=== PATIENT | male | born 1940 | race Caucasian/White ===

== ENCOUNTER 2017-12-29 11:26 | Outpatient (REF) | payer MEDICARE, BC, SELFPAY ==
[2017-12-29 21:24] LABS: Anion Gap 9.5 mmol/L (3-11); BUN 35 mg/dL (7-18); CO2 28.5 mmol/L (21.0-32.0); CREATININE 1.91 mg/dL (0.70-1.30); Calcium 8.9 mg/dL (8.5-10.1); Chloride 102 mmol/L (98-107); Estimated GFR 34.25 (mL/min/1.73m2); Glucose 204 mg/dL (70-100); Sodium 140 mmol/L (136-145)
[2017-12-29 22:02] LABS: COMMENT (LAB VIEW ONLY) 69.29 mg/dL
== END 2017-12-29 11:46 ==
LOC: NCHCN 11:26
PROVIDERS: PCP Internal Medicine; Visit Provider Internal Medicine
DX: I48.0 Paroxysmal atrial fibrillation (principal); E11.9 Type 2 diabetes mellitus without complications; I10 Essential (primary) hypertension
CPT/HCPCS: 80048; 82043; 82570

== ENCOUNTER 2018-10-02 11:30 | Outpatient (REF) | payer MEDICARE, BC, SELFPAY ==
[2018-10-02 21:18] LABS: Anion Gap 10.3 mmol/L (3-11); BUN 48 mg/dL (7-18); CO2 24.7 mmol/L (21.0-32.0); CREATININE 2.01 mg/dL (0.70-1.30); Calcium 9.2 mg/dL (8.5-10.1); Chloride 105 mmol/L (98-107); Estimated GFR 32.21 (mL/min/1.73m2); Glucose 255 mg/dL (70-100); Potassium 5.5 mmol/L (3.5-5.1); Sodium 140 mmol/L (136-145)
== END 2018-10-02 11:50 ==
LOC: NCHCN 11:30
PROVIDERS: PCP Internal Medicine; Visit Provider Registered Nurse
DX: E11.9 Type 2 diabetes mellitus without complications (principal)
CPT/HCPCS: 80048

== ENCOUNTER 2019-01-02 11:45 | Outpatient (REF) | payer MEDICARE, BC, SELFPAY ==
[2019-01-02 22:37] LABS: COMMENT (LAB VIEW ONLY) 130.62 mg/dL
== END 2019-01-02 12:05 ==
LOC: NCHCN 11:45
PROVIDERS: PCP Internal Medicine; Visit Provider Registered Nurse
DX: R80.9 Proteinuria, unspecified (principal)
CPT/HCPCS: 82043; 82570

== ENCOUNTER 2019-04-03 16:06 | Outpatient (REF) | payer MEDICARE, BC, SELFPAY ==
[2019-04-03 22:15] LABS: Anion Gap 8.5 mmol/L (3-11); BUN 42 mg/dL (7-18); CO2 25.5 mmol/L (21.0-32.0); CREATININE 2.33 mg/dL (0.70-1.30); Calcium 8.4 mg/dL (8.5-10.1); Chloride 104 mmol/L (98-107); Estimated GFR 27.16 (mL/min/1.73m2); Glucose 342 mg/dL (74-106); Potassium 5.7 mmol/L (3.5-5.1); Sodium 138 mmol/L (136-145)
== END 2019-04-03 16:26 ==
LOC: NCHCN 16:06
PROVIDERS: PCP Internal Medicine; Visit Provider Registered Nurse
DX: E11.9 Type 2 diabetes mellitus without complications (principal); I10 Essential (primary) hypertension
CPT/HCPCS: 80048; 87077; 87070; 87186; 87205

== ENCOUNTER 2019-04-04 14:59 | Outpatient (REF) | payer MEDICARE, BC, SELFPAY ==
[2019-04-04 21:38] LABS: HCT 38.6 % (40.0-50.0); HGB 12.7 g/dL (13.5-17.5); Mean Corp. HGB Concentration 32.9 g/dL (32.0-36.0); Mean Corpuscular Hemoglobin 33.6 pg (27.0-33.0); Mean Corpuscular Volume 102.1 fL (80-95); Mean Platelet Volume 9.9 fL (8.0-11.0); Platelet Count 222 x1000/uL (130-400); RBC 3.78 m/cumm (4.50-6.00); RBC Distribution Width 12.8 % (11.8-14.1); White Blood Cell Count 7.01 k/cumm (4.4-10.8)
[2019-04-04 21:48] LABS: ALT 41 U/L (16-63); AST 35 U/L (15-37); Albumin 3.6 g/dL (3.4-5.0); Alkaline Phosphatase 82 U/L (46-116); Anion Gap 9.4 mmol/L (3-11); BUN 39 mg/dL (7-18); Bilirubin, Total 0.5 mg/dL (0.2-1.0); CO2 26.6 mmol/L (21.0-32.0); CREATININE 2.12 mg/dL (0.70-1.30); Calcium 8.7 mg/dL (8.5-10.1); Chloride 102 mmol/L (98-107); Estimated GFR 30.28 (mL/min/1.73m2); Glucose 310 mg/dL (74-106); PHOSPHORUS 3.4 mg/dL (2.6-4.7); Potassium 5.7 mmol/L (3.5-5.1); Sodium 138 mmol/L (136-145)
[2019-04-06 11:03] LABS: Vitamin B12 354 pg/mL (193-986)
== END 2019-04-04 15:19 ==
LOC: NCHCN 14:59
PROVIDERS: PCP Internal Medicine; Visit Provider Registered Nurse
DX: N18.9 Chronic kidney disease, unspecified (principal); M10.9 Gout, unspecified; E55.9 Vitamin D deficiency, unspecified; D64.9 Anemia, unspecified
CPT/HCPCS: 80053; 82306; 85027; 82607; 82746; 84100

== ENCOUNTER 2019-04-06 11:20 | Outpatient (REF) | payer MEDICARE, BC, SELFPAY ==
[2019-04-06 20:37] LABS: Potassium 5.2 mmol/L (3.5-5.1)
== END 2019-04-06 11:40 ==
LOC: NCHCN 11:20
PROVIDERS: PCP Internal Medicine; Visit Provider Registered Nurse
DX: N18.9 Chronic kidney disease, unspecified (principal); M10.9 Gout, unspecified; E87.5 Hyperkalemia
CPT/HCPCS: 84132

== ENCOUNTER 2019-04-25 08:13 | Outpatient (REF) | payer MEDICARE, BC, SELFPAY ==
[2019-04-25 22:11] LABS: Anion Gap 8.5 mmol/L (3-11); BUN 44 mg/dL (7-18); CO2 27.5 mmol/L (21.0-32.0); CREATININE 2.37 mg/dL (0.70-1.30); Calcium 9.1 mg/dL (8.5-10.1); Chloride 105 mmol/L (98-107); Estimated GFR 26.63 (mL/min/1.73m2); Glucose 198 mg/dL (74-106); Potassium 4.7 mmol/L (3.5-5.1); Sodium 141 mmol/L (136-145)
== END 2019-04-25 08:33 ==
LOC: NCHCN 08:13
PROVIDERS: PCP Internal Medicine; Visit Provider Registered Nurse
DX: E87.5 Hyperkalemia (principal)
CPT/HCPCS: 80048

== ENCOUNTER 2019-06-01 11:02 | Outpatient (REF) | payer MEDICARE, BC, SELFPAY ==
[2019-06-01 21:07] LABS: Anion Gap 7.4 mmol/L (3-11); BUN 47 mg/dL (7-18); CO2 28.6 mmol/L (21.0-32.0); CREATININE 2.37 mg/dL (0.70-1.30); Calcium 8.9 mg/dL (8.5-10.1); Chloride 101 mmol/L (98-107); Estimated GFR 26.63 (mL/min/1.73m2); Glucose 332 mg/dL (74-106); Potassium 5.2 mmol/L (3.5-5.1); Sodium 137 mmol/L (136-145)
== END 2019-06-01 11:22 ==
LOC: NCHCN 11:02
PROVIDERS: PCP Internal Medicine; Visit Provider Registered Nurse
DX: E87.5 Hyperkalemia (principal); N18.9 Chronic kidney disease, unspecified
CPT/HCPCS: 80048

== ENCOUNTER 2019-09-26 10:11 | Outpatient (REF) | payer MEDICARE, BC, SELFPAY ==
[2019-09-26 19:46] LABS: Anion Gap 8.5 mmol/L (3-11); BUN 40 mg/dL (7-18); CO2 27.5 mmol/L (21.0-32.0); CREATININE 2.46 mg/dL (0.70-1.30); Calcium 9.3 mg/dL (8.5-10.1); Chloride 102 mmol/L (98-107); Estimated GFR 25.44 (mL/min/1.73m2); Glucose 282 mg/dL (74-106); Potassium 5.1 mmol/L (3.5-5.1); Sodium 138 mmol/L (136-145)
[2019-09-26 19:56] LABS: Hemoglobin A1C 10.5 % (3.8-5.6)
== END 2019-09-26 10:31 ==
LOC: NCHCN 10:11
PROVIDERS: PCP Internal Medicine; Visit Provider Internal Medicine
DX: E11.9 Type 2 diabetes mellitus without complications (principal); I10 Essential (primary) hypertension; E87.5 Hyperkalemia; N18.3 Chronic kidney disease, stage 3 (moderate); E78.5 Hyperlipidemia, unspecified
CPT/HCPCS: 80048; 83036

== ENCOUNTER 2020-01-21 14:29 | Outpatient (REF) | payer MEDICARE, BC, SELFPAY ==
[2020-01-21 21:31] LABS: BUN 39 mg/dL (7-18); Chloride 101 mmol/L (98-107); Estimated GFR 26.18 (mL/min/1.73m2); Glucose 290 mg/dL (74-106); Potassium 4.7 mmol/L (3.5-5.1); Sodium 137 mmol/L (136-145)
== END 2020-01-21 14:49 ==
LOC: NCHCN 14:29
PROVIDERS: PCP Internal Medicine; Visit Provider Internal Medicine
DX: E87.5 Hyperkalemia (principal); N18.9 Chronic kidney disease, unspecified
CPT/HCPCS: 80048

== ENCOUNTER 2020-03-19 14:58 | Outpatient (REF) | payer MEDICARE, BC, SELFPAY ==
[2020-03-19 14:06] LABS: Hemoglobin A1C 8.6 % (<5.7)
[2020-03-19 14:16] LABS: Anion Gap 13.1 mmol/L (3-11); BUN 47 mg/dL (7-18); CO2 24.9 mmol/L (21.0-32.0); CREATININE 2.3 mg/dL (0.70-1.30); Calcium 9.2 mg/dL (8.5-10.1); Chloride 103 mmol/L (98-107); Glucose 274 mg/dL (74-106); Potassium 4.6 mmol/L (3.5-5.1); Sodium 141 mmol/L (136-145)
== END 2020-03-19 14:59 | disposition home or self-care (01) ==
LOC: NCHCN 14:58
PROVIDERS: PCP Internal Medicine; Visit Provider Internal Medicine
DX: E11.9 Type 2 diabetes mellitus without complications (principal); I50.9 Heart failure, unspecified; I11.0 Hypertensive heart disease with heart failure
CPT/HCPCS: 80048; 83036

== ENCOUNTER 2020-04-09 19:00 | Outpatient (REF) | payer MEDICARE, BC, SELFPAY ==
[2020-04-09 13:13] LABS: Anion Gap 9.2 mmol/L (3-11); BUN 56 mg/dL (7-18); CO2 28.8 mmol/L (21.0-32.0); CREATININE 2.6 mg/dL (0.70-1.30); Chloride 103 mmol/L (98-107); Estimated GFR 23.87 (mL/min/1.73m2); Glucose 252 mg/dL (74-106); Potassium 4.6 mmol/L (3.5-5.1); Sodium 141 mmol/L (136-145)
== END 2020-04-09 19:01 | disposition home or self-care (01) ==
LOC: NCHCN 19:00
PROVIDERS: PCP Internal Medicine; Visit Provider Internal Medicine
DX: I50.9 Heart failure, unspecified (principal)
CPT/HCPCS: 80048

== ENCOUNTER 2020-06-11 11:08 | Outpatient (REF) | payer MEDICARE, BC, SELFPAY ==
[2020-06-11 13:35] LABS: Abs Immature Grans 0.03 10^3/uL (0.0-0.06); Absolute Basophil Count 0.02 10^3/uL (0.0-0.2); Absolute Eosinophil Count 0.16 10^3/uL (0.0-0.7); Absolute Lymphocyte Count 1.75 10^3/uL (1.2-3.4); Absolute Monocyte Count 0.46 10^3/uL (0.1-0.8); Basophils % 0.3; Eosinophils % 2.8; HCT 40.3 % (40.0-50.0); HGB 13.3 g/dL (13.5-17.5); Immature Grans % 0.5; Lymphocytes % 30.6; MCH 34.2 pg (27.0-33.0); MCV 103.6 fL (80-95); MPV 10.3 fL (8.0-11.0); Neutrophils % 57.8; Nucleated RBC 0 %; Platelet Count 165 10^3/uL (130-400); RBC 3.89 10^6/uL (4.36-5.78); RDW 13.1 % (11.8-14.1); RDW-SD 49.7 fL; WBC 5.72 10^3/uL (4.4-10.8)
[2020-06-11 13:43] LABS: Iron 77 ug/dL (65-175); Total Iron Binding Capacity 280 ug/dL (250-450); Transferrin Sat 28 % (20-55)
[2020-06-11 13:56] LABS: Hemoglobin A1C 8.3 % (<5.7)
[2020-06-11 13:59] LABS: Anion Gap 8.1 mmol/L (3-11); BUN 56 mg/dL (7-18); CO2 26.9 mmol/L (21.0-32.0); CREATININE 2.6 mg/dL (0.70-1.30); Calcium 8.9 mg/dL (8.5-10.1); Chloride 106 mmol/L (98-107); Estimated GFR 23.87 (mL/min/1.73m2); Ferritin 364 ng/mL (26-388); Glucose 248 mg/dL (74-106); Potassium 4.7 mmol/L (3.5-5.1); Sodium 141 mmol/L (136-145)
[2020-06-12 04:29] LABS: Vitamin D 25 Total 52.1 ng/mL (30-100)
[2020-06-12 10:10] LABS: Parathyroid Hormone,Intact 50 pg/mL (19-88)
== END 2020-06-11 11:09 | disposition home or self-care (01) ==
LOC: NCHCN 11:08
PROVIDERS: PCP Internal Medicine; Visit Provider Internal Medicine
DX: I50.9 Heart failure, unspecified (principal); E11.9 Type 2 diabetes mellitus without complications; I10 Essential (primary) hypertension; N18.30 Chronic kidney disease, stage 3 unspecified
CPT/HCPCS: 80048; 82306; 82728; 83036; 83540; 83550; 83970; 85025

== ENCOUNTER 2020-06-16 10:39 | Outpatient (REF) | payer MEDICARE, BC, SELFPAY ==
[2020-06-16 22:23] LABS: COMMENT (LAB VIEW ONLY) 58.07 mg/dL
[2020-06-16 22:25] LABS: Microalb ug/mg Crea 764.3 ug/mg Cr
== END 2020-06-16 10:40 | disposition home or self-care (01) ==
LOC: NCHCN 10:39
PROVIDERS: PCP Internal Medicine; Visit Provider Internal Medicine
DX: E11.9 Type 2 diabetes mellitus without complications (principal)
CPT/HCPCS: 82043; 82570

== ENCOUNTER 2020-11-07 05:32 | Outpatient (CLI) | payer MEDICARE, BC, SELFPAY ==
[2020-11-07] VITALS (7 sets, daily range): BP systolic 130–159; BP diastolic 80–93; PULSE 67–85; RESP 17–20; TEMP 36.4–36.5; O2SAT 94–99
== END 2020-11-07 05:33 | disposition home or self-care (01) ==
LOC: INF 05:40
PROVIDERS: PCP Internal Medicine; Visit Provider Family Medicine
DX: U07.1 COVID-19 (principal)
CPT/HCPCS: 96365

== ENCOUNTER 2021-01-16 15:26 | Outpatient (REF) | payer MEDICARE, BC, SELFPAY ==
[2021-01-16 21:23] LABS: Abs Immature Grans 0.04 10^3/uL (0.0-0.06); Absolute Basophil Count 0.03 10^3/uL (0.0-0.2); Absolute Eosinophil Count 0.11 10^3/uL (0.0-0.7); Absolute Lymphocyte Count 1.46 10^3/uL (1.2-3.4); Absolute Monocyte Count 0.85 10^3/uL (0.1-0.8); Absolute Neutrophil Count 5.59 10^3/uL (1.2-6.7); Basophils % 0.4; Eosinophils % 1.4; HCT 37.9 % (40.0-50.0); HGB 12.4 g/dL (13.5-17.5); Immature Grans % 0.5; Lymphocytes % 18.1; MCH 34.4 pg (27.0-33.0); MCHC 32.7 % (32.0-36.0); MCV 105.3 fL (80-95); MPV 9.6 fL (8.0-11.0); Monocytes % 10.5; Neutrophils % 69.1; Nucleated RBC 0 %; Platelet Count 202 10^3/uL (130-400); RDW 13.2 % (11.8-14.1); RDW-SD 50.8 fL; WBC 8.08 10^3/uL (4.4-10.8)
[2021-01-16 21:34] LABS: Diff Comment RBC Morph Reviewed; Macrocytosis 2+; Polychromasia Present
[2021-01-16 21:42] LABS: Anion Gap 8.3 mmol/L (3-11); BUN 47 mg/dL (7-18); CO2 27.7 mmol/L (21.0-32.0); CREATININE 2.2 mg/dL (0.70-1.30); Chloride 101 mmol/L (98-107); Estimated GFR 28.87 (mL/min/1.73m2); Glucose 186 mg/dL (74-106); NT-proBNP 2920 pg/mL (<300); Potassium 4.5 mmol/L (3.5-5.1); Sodium 137 mmol/L (136-145)
== END 2021-01-16 15:27 | disposition home or self-care (01) ==
LOC: NCHCN 15:26
PROVIDERS: PCP Internal Medicine; Visit Provider Registered Nurse
DX: I50.9 Heart failure, unspecified (principal); R05.8 Other specified cough
CPT/HCPCS: 80048; 83880; 85025

== ENCOUNTER 2021-03-05 16:49 | Outpatient (REF) | payer MEDICARE, BC, SELFPAY ==
[2021-03-05 20:58] LABS: Hemoglobin A1C 7.4 % (<5.7)
[2021-03-05 21:00] LABS: Anion Gap 7.5 mmol/L (3-11); BUN 49 mg/dL (7-18); CO2 27.5 mmol/L (21.0-32.0); CREATININE 2.3 mg/dL (0.70-1.30); Chloride 105 mmol/L (98-107); Estimated GFR 27.43 (mL/min/1.73m2); Glucose 199 mg/dL (74-106); Potassium 4.6 mmol/L (3.5-5.1); Sodium 140 mmol/L (136-145)
== END 2021-03-05 16:50 | disposition home or self-care (01) ==
LOC: NCHCN 16:49
PROVIDERS: Visit Provider Internal Medicine
DX: E11.9 Type 2 diabetes mellitus without complications (principal); N18.9 Chronic kidney disease, unspecified
CPT/HCPCS: 80048; 83036

== ENCOUNTER 2021-06-19 18:31 | Outpatient (REF) | payer MEDICARE, BC, SELFPAY ==
[2021-06-19 15:07] LABS: Anion Gap 9.8 mmol/L (3-11); BUN 69 mg/dL (7-18); CO2 28.2 mmol/L (21.0-32.0); CREATININE 3.5 mg/dL (0.70-1.30); Calcium 8.6 mg/dL (8.5-10.1); Chloride 103 mmol/L (98-107); Glucose 200 mg/dL (74-106); Potassium 5.1 mmol/L (3.5-5.1); Sodium 141 mmol/L (136-145)
== END 2021-06-19 18:32 | disposition home or self-care (01) ==
LOC: NCHCN 18:31
PROVIDERS: Visit Provider Internal Medicine
DX: I10 Essential (primary) hypertension (principal)
CPT/HCPCS: 80048

== ENCOUNTER 2021-07-20 21:01 | Outpatient (REF) | payer MEDICARE, BC, SELFPAY ==
[2021-07-20 21:20] LABS: COMMENT (LAB VIEW ONLY) 37.54 mg/dL; Microalb ug/mg Crea 589.5 ug/mg Cr
== END 2021-07-20 21:02 | disposition home or self-care (01) ==
LOC: NCHCN 21:01
PROVIDERS: Visit Provider Internal Medicine
DX: E11.9 Type 2 diabetes mellitus without complications (principal)
CPT/HCPCS: 82043; 82570

== ENCOUNTER 2021-07-21 16:00 | Outpatient (REF) | payer MEDICARE, BC, SELFPAY ==
[2021-07-21 14:11] LABS: HCT 32.1 % (40.0-50.0); HGB 10.4 g/dL (13.5-17.5); MCH 34.6 pg (27.0-33.0); MCHC 32.4 % (32.0-36.0); MCV 107 fL (80-95); Platelet Count 196 10^3/uL (130-400); RBC 3.01 10^6/uL (4.36-5.78); RDW 13.2 % (11.8-14.1); RDW-SD 52.1 fL; WBC 5.69 10^3/uL (4.4-10.8)
== END 2021-07-21 16:01 | disposition home or self-care (01) ==
LOC: NCHCN 16:00
PROVIDERS: Visit Provider Nurse Practitioner Family
DX: D64.9 Anemia, unspecified (principal)
CPT/HCPCS: 85027

== ENCOUNTER 2021-07-30 10:22 | Outpatient (REF) | payer MEDICARE, BC, SELFPAY ==
[2021-07-30 16:42] LABS: Anion Gap 11.7 mmol/L (3-11); BUN 69 mg/dL (7-18); CO2 26.3 mmol/L (21.0-32.0); CREATININE 2.8 mg/dL (0.70-1.30); Calcium 9.5 mg/dL (8.5-10.1); Chloride 104 mmol/L (98-107); Glucose 209 mg/dL (74-106); Potassium 4.9 mmol/L (3.5-5.1); Sodium 142 mmol/L (136-145)
== END 2021-07-30 10:23 | disposition home or self-care (01) ==
LOC: NCHCN 10:22
PROVIDERS: Visit Provider Internal Medicine
DX: N18.9 Chronic kidney disease, unspecified (principal)
CPT/HCPCS: 80048

== ENCOUNTER 2021-09-15 15:27 | Outpatient (REF) | payer MEDICARE, BC, SELFPAY ==
[2021-09-15 16:22] LABS: HGB 11.2 g/dL (13.5-17.5); MCHC 32.9 % (32.0-36.0); MCV 106 fL (80-95); MPV 10.1 fL (8.0-11.0); Platelet Count 203 10^3/uL (130-400); RDW 13.7 % (11.8-14.1); WBC 5.31 10^3/uL (4.4-10.8)
[2021-09-15 17:07] LABS: Anion Gap 8.3 mmol/L (3-11); BUN 69 mg/dL (7-18); CO2 24.7 mmol/L (21.0-32.0); CREATININE 2.6 mg/dL (0.70-1.30); Calcium 9.1 mg/dL (8.5-10.1); Chloride 102 mmol/L (98-107); Estimated GFR 23.75 (mL/min/1.73m2); Glucose 226 mg/dL (74-106); Potassium 4.4 mmol/L (3.5-5.1); Sodium 135 mmol/L (136-145)
[2021-09-15 18:15] LABS: Hemoglobin A1C 7.7 % (<5.7)
== END 2021-09-15 15:28 | disposition home or self-care (01) ==
LOC: NCHCN 15:27
PROVIDERS: Visit Provider Internal Medicine
DX: E11.9 Type 2 diabetes mellitus without complications (principal); N18.9 Chronic kidney disease, unspecified; Z51.81 Encounter for therapeutic drug level monitoring
CPT/HCPCS: 80048; 85027; 83036

== ENCOUNTER 2022-01-21 13:01 | Outpatient (REF) | payer MEDICARE, BC, SELFPAY ==
[2022-01-21 21:05] LABS: Anion Gap 9.9 mmol/L (3-11); BUN 72 mg/dL (7-18); CO2 25.1 mmol/L (21.0-32.0); CREATININE 2.7 mg/dL (0.70-1.30); Calcium 9.7 mg/dL (8.5-10.1); Chloride 97 mmol/L (98-107); Estimated GFR 22.82 (mL/min/1.73m2); Glucose 430 mg/dL (74-106); Potassium 5.5 mmol/L (3.5-5.1); Sodium 132 mmol/L (136-145)
== END 2022-01-21 13:02 | disposition home or self-care (01) ==
LOC: NCHCN 13:01
PROVIDERS: Visit Provider Nurse Practitioner Family
DX: N18.9 Chronic kidney disease, unspecified (principal)
CPT/HCPCS: 80048

== ENCOUNTER 2022-07-09 16:13 | Outpatient (REF) | payer MEDICARE, BC, SELFPAY ==
[2022-07-09 21:32] LABS: Microalb ug/mg Crea 827.7 ug/mg Cr
== END 2022-07-09 16:14 | disposition home or self-care (01) ==
LOC: NCHCN 16:13
PROVIDERS: Visit Provider Internal Medicine
DX: E11.9 Type 2 diabetes mellitus without complications (principal)
CPT/HCPCS: 82043; 82570

== ENCOUNTER 2022-10-04 09:07 | Outpatient (REF) | payer MEDICARE, BC, SELFPAY ==
[2022-10-04 15:12] LABS: HCT 36.3 % (40.0-50.0); HGB 12.3 g/dL (13.5-17.5); MCHC 33.9 % (32.0-36.0); MPV 10.2 fL (8.0-11.0); Platelet Count 198 10^3/uL (130-400); RBC 3.42 10^6/uL (4.36-5.78); RDW 13.2 % (11.8-14.1); RDW-SD 51.6 fL; WBC 5.32 10^3/uL (4.4-10.8)
[2022-10-04 15:21] LABS: Anion Gap 8.7 mmol/L (3-11); BUN 64 mg/dL (7-18); CO2 27.3 mmol/L (21.0-32.0); CREATININE 2.8 mg/dL (0.70-1.30); Calcium 9.5 mg/dL (8.5-10.1); Chloride 100 mmol/L (98-107); Estimated GFR 21.71 (mL/min/1.73m2); Glucose 308 mg/dL (74-106); Potassium 4.7 mmol/L (3.5-5.1); Sodium 136 mmol/L (136-145)
[2022-10-04 16:28] LABS: MCV 106 fL (80-95)
== END 2022-10-04 09:08 | disposition home or self-care (01) ==
LOC: NCHCN 09:07
PROVIDERS: Visit Provider Internal Medicine
DX: E11.9 Type 2 diabetes mellitus without complications (principal); N18.9 Chronic kidney disease, unspecified
CPT/HCPCS: 80048; 85027; 83036

== ENCOUNTER 2022-10-25 14:25 | Outpatient (REF) | payer MEDICARE, BC, SELFPAY ==
[2022-10-25 14:52] LABS: Anion Gap 7.5 mmol/L (3-11); BUN 60 mg/dL (7-18); CO2 28.5 mmol/L (21.0-32.0); Chloride 103 mmol/L (98-107); Estimated GFR 19.98 (mL/min/1.73m2); Glucose 157 mg/dL (74-106); Potassium 4.7 mmol/L (3.5-5.1); Sodium 139 mmol/L (136-145)
== END 2022-10-25 14:26 | disposition home or self-care (01) ==
LOC: NCHCN 14:25
PROVIDERS: PCP Internal Medicine; Visit Provider Internal Medicine
DX: N18.9 Chronic kidney disease, unspecified (principal); I10 Essential (primary) hypertension; E11.9 Type 2 diabetes mellitus without complications
CPT/HCPCS: 80048

== ENCOUNTER 2023-01-14 18:17 | Outpatient (REF) | payer MEDICARE, BC, SELFPAY ==
[2023-01-14 21:09] LABS: HCT 33.2 % (40.0-50.0); HGB 10.6 g/dL (13.5-17.5); MCH 36.2 pg (27.0-33.0); MCHC 31.9 % (32.0-36.0); MPV 10.7 fL (8.0-11.0); Platelet Count 233 10^3/uL (130-400); RBC 2.93 10^6/uL (4.36-5.78); RDW 15.1 % (11.8-14.1); RDW-SD 63.2 fL; WBC 6.64 10^3/uL (4.4-10.8)
[2023-01-14 21:24] LABS: Anion Gap 15.3 mmol/L (3-11); CO2 18.7 mmol/L (21.0-32.0); Calcium 9.4 mg/dL (8.5-10.1); Chloride 102 mmol/L (98-107); Estimated GFR 16.06 (mL/min/1.73m2); Glucose 135 mg/dL (74-106); Potassium 4.6 mmol/L (3.5-5.1); Sodium 136 mmol/L (136-145)
[2023-01-14 21:32] LABS: MCV 113 fL (80-95)
[2023-01-14 21:34] LABS: BUN 94 mg/dL (7-18); CREATININE 3.6 mg/dL (0.70-1.30)
== END 2023-01-14 18:18 | disposition home or self-care (01) ==
LOC: NCHCN 18:17
PROVIDERS: PCP Internal Medicine; Visit Provider Internal Medicine
DX: N18.9 Chronic kidney disease, unspecified (principal)
CPT/HCPCS: 80048; 85027

== ENCOUNTER 2023-01-17 13:57 | Outpatient (REF) | payer MEDICARE, BC, SELFPAY ==
[2023-01-17 21:30] LABS: HCT 32.3 % (40.0-50.0); HGB 10.3 g/dL (13.5-17.5); MCH 34.9 pg (27.0-33.0); MCHC 31.9 % (32.0-36.0); MPV 10.6 fL (8.0-11.0); Platelet Count 286 10^3/uL (130-400); RBC 2.95 10^6/uL (4.36-5.78); RDW 14.8 % (11.8-14.1); RDW-SD 60.4 fL; WBC 5.69 10^3/uL (4.4-10.8)
[2023-01-17 21:56] LABS: MCV 110 fL (80-95)
[2023-01-17 22:05] LABS: Vitamin D 25 Total 76.5 ng/mL (30-100)
[2023-01-17 22:31] LABS: Iron 94 ug/dL (65-175); Total Iron Binding Capacity 311 ug/dL (250-450); Transferrin Sat 30 % (20-55)
[2023-01-17 22:44] LABS: Anion Gap 11.3 mmol/L (3-11); CO2 22.7 mmol/L (21.0-32.0); CREATININE 2.9 mg/dL (0.70-1.30); Chloride 106 mmol/L (98-107); Estimated GFR 20.81 (mL/min/1.73m2); Ferritin 312 ng/mL (26-388); Glucose 136 mg/dL (74-106); Potassium 4.7 mmol/L (3.5-5.1); Sodium 140 mmol/L (136-145)
[2023-01-17 22:51] LABS: BUN 81 mg/dL (7-18)
[2023-01-17 23:10] LABS: PHOSPHORUS 4.2 mg/dL (2.6-4.7)
[2023-01-18 18:38] LABS: Parathyroid Hormone,Intact 68 pg/mL (19-88)
== END 2023-01-17 13:58 | disposition home or self-care (01) ==
LOC: NCHCN 13:57
PROVIDERS: PCP Internal Medicine; Visit Provider Internal Medicine
DX: N18.30 Chronic kidney disease, stage 3 unspecified (principal); N17.9 Acute kidney failure, unspecified
CPT/HCPCS: 80048; 82306; 85027; 82728; 83540; 83550; 83970; 84100

== ENCOUNTER 2023-01-21 16:26 | Outpatient (REF) | payer MEDICARE, BC, SELFPAY ==
[2023-01-21 20:37] LABS: Anion Gap 6.8 mmol/L (3-11); BUN 51 mg/dL (7-18); CO2 24.2 mmol/L (21.0-32.0); CREATININE 2.1 mg/dL (0.70-1.30); Calcium 9.6 mg/dL (8.5-10.1); Chloride 107 mmol/L (98-107); Estimated GFR 30.66 (mL/min/1.73m2); Glucose 126 mg/dL (74-106); Potassium 5.2 mmol/L (3.5-5.1); Sodium 138 mmol/L (136-145)
== END 2023-01-21 16:27 | disposition home or self-care (01) ==
LOC: NCHCN 16:26
PROVIDERS: PCP Internal Medicine; Visit Provider Internal Medicine
DX: N18.9 Chronic kidney disease, unspecified (principal)
CPT/HCPCS: 80048

== ENCOUNTER 2023-01-26 09:59 | Outpatient (REF) | payer MEDICARE, BC, SELFPAY ==
[2023-01-26 16:09] LABS: Anion Gap 8.4 mmol/L (3-11); BUN 41 mg/dL (7-18); CO2 27.6 mmol/L (21.0-32.0); CREATININE 2.2 mg/dL (0.70-1.30); Calcium 9.7 mg/dL (8.5-10.1); Chloride 103 mmol/L (98-107); Estimated GFR 28.99 (mL/min/1.73m2); Glucose 191 mg/dL (74-106); Potassium 4.3 mmol/L (3.5-5.1); Sodium 139 mmol/L (136-145)
== END 2023-01-26 10:00 | disposition home or self-care (01) ==
LOC: NCHCN 09:59
PROVIDERS: PCP Internal Medicine; Visit Provider Internal Medicine
DX: N18.9 Chronic kidney disease, unspecified (principal)
CPT/HCPCS: 80048

== ENCOUNTER 2023-02-10 11:02 | Outpatient (REF) | payer MEDICARE, BC, SELFPAY ==
[2023-02-10 15:12] LABS: ALT 46 U/L (16-63); AST 61 U/L (15-37); Albumin 2.7 g/dL (3.4-5.0); Alkaline Phosphatase 311 U/L (46-116); Anion Gap 9.3 mmol/L (3-11); BUN 55 mg/dL (7-18); CO2 25.7 mmol/L (21.0-32.0); CREATININE 2.7 mg/dL (0.70-1.30); Calcium 9.4 mg/dL (8.5-10.1); Chloride 101 mmol/L (98-107); Estimated GFR 22.68 (mL/min/1.73m2); Glucose 218 mg/dL (74-106); Potassium 4.6 mmol/L (3.5-5.1); Sodium 136 mmol/L (136-145); Total Protein 7.4 g/dL (6.4-8.2)
== END 2023-02-10 11:03 | disposition home or self-care (01) ==
LOC: LBN 11:02
PROVIDERS: PCP Internal Medicine
DX: N18.4 Chronic kidney disease, stage 4 (severe) (principal)
CPT/HCPCS: 80053

== ENCOUNTER 2023-02-18 13:16 | Outpatient (REF) | payer MEDICARE, BC, SELFPAY ==
[2023-02-18 21:12] LABS: HCT 32.3 % (40.0-50.0); HGB 10.6 g/dL (13.5-17.5); MCH 35.5 pg (27.0-33.0); MCHC 32.8 % (32.0-36.0); MCV 108 fL (80-95); MPV 9.8 fL (8.0-11.0); Platelet Count 287 10^3/uL (130-400); RBC 2.99 10^6/uL (4.36-5.78); RDW 13.5 % (11.8-14.1); RDW-SD 53.8 fL; WBC 6.04 10^3/uL (4.4-10.8)
[2023-02-18 21:23] LABS: ALT 34 U/L (16-63); AST 42 U/L (15-37); Albumin 3.1 g/dL (3.4-5.0); Alkaline Phosphatase 243 U/L (46-116); BUN 50 mg/dL (7-18); Bilirubin, Total 1.1 mg/dL (0.2-1.0); CREATININE 2.4 mg/dL (0.70-1.30); Calcium 9.9 mg/dL (8.5-10.1); Chloride 103 mmol/L (98-107); Estimated GFR 26.12 (mL/min/1.73m2); Glucose 216 mg/dL (74-106); Potassium 4.8 mmol/L (3.5-5.1); Sodium 137 mmol/L (136-145); Total Protein 8.4 g/dL (6.4-8.2)
== END 2023-02-18 13:17 | disposition home or self-care (01) ==
LOC: NCHCN 13:16
PROVIDERS: PCP Internal Medicine; Visit Provider Internal Medicine
DX: K83.09 Other cholangitis (principal)
CPT/HCPCS: 80053; 85027

== ENCOUNTER 2023-03-04 21:24 | Outpatient (REF) | payer MEDICARE, BC, SELFPAY ==
--- OUTSIDE RECORDS SUMMARY | 2023-03-04 21:27 | XMS_ITS | CCD ---
Author Name Unknown Address [address] [place] [address] [id number] Organization Unknown Address [address] [place] [address] [phone] Care Team Providers Care Director Of Social Services Name Role Phone KAMILAH GONZALEZ Attending Physician [phone] KAMILAH GONZALEZ Rounding (Secondary) Physician [phone] Vital Signs Unknown or Not Available. Allergies Allergy Code Allergy Type Reaction Status LISINOPRIL 17241 Drug allergy Anaphylaxis Active ZITHROMAX 504913 Drug allergy UNKNOWN; Vomiting Activ e Procedures Unknown or Not Available. History of Immunizations Unknown or Not Available. Problems Problem Code Start Date Resolved Date Status Acute diastolic (congestive) heart failure 636534137 Active Diabetes type 2 with nephropathy 131057863 Active Chronic kidney disease stage IV 829562936 Active Anasarca 458279938 Active BPH 191735939 07/13/2021 Resolved GERD 797181642 07/13/2021 Resolved AFIB 99796083 07/13/2021 Resolved Melanoma of facial skin 16470104 12/13/2019 R esolved Diabetic neuropathy 654212152 07/13/2021 Resol rufina Gout 84706763 07/13/2021 Resolved CHF 31969944 12/13/2019 Resolved Hypertension 00358933 07/13/2021 Resolved Diabetes 2 94338120 12/13/2019 Resolved Results Unknown or Not Available. Active Medications Medication Code Dose Units Frequency Route Modificatio n Start Date/Time Robaxin 500MG Oral Tablet 33161088503 1 TABLET THREE TIMES A DAY ORAL 02/12/2023 16:48 Prescription Detail TAKE 1 TABLET ORAL THREE TIMES A DAY Xarelto 15MG Oral Tablet [id number] 15 MILLIGRAMS EVERY EVENING ORAL 07/16/2021 11:09 Prescription Detail TAKE 15 MILLIGRAMS ORAL EVERY EVENING Medications Administered During Visit Unknown or Not Available. Encounters Unknown or Not Available. Social History Smoking Status Code Start Date End Date Former smoker [id number] 1956 07/20/1970 Patient Decision Aids Unknown or Not Available. Discharge Instructions You were admitted to [facility] You were discharged from [facility] Should you have any questions prior to discharge, please contact a member of your healthcare team. If you have left the hospital and have any questions, please contact your primary care physician. Chief Complaint and Reason For Visit Unknown or Not Available. Function Status Unknown or Not Available. Plan of Care Unknown or Not Available. Referral/Transition of Care Unknown or Not Available.
--- OUTSIDE RECORDS SUMMARY | 2023-03-04 21:27 | XMS_ITS | CCD ---
Author Name Unknown Address [address] [place] [address] [id number] Organization Unknown Address [address] [place] [address] [phone] Care Team Providers Care Project Architect Name Role Phone SAVANNA TAVERAS Attending Physician [phone] Vital Signs Unknown or Not Available. Allergies Allergy Code Allergy Type Reaction Status LISINOPRIL 62968 Drug allergy Anaphylaxis Active ZITHROMAX 623269 Drug allergy UNKNOWN; Vomiting Activ e Procedures Unknown or Not Available. History of Immunizations Unknown or Not Available. Problems Problem Code Start Date Resolved Date Status Acute diastolic (congestive) heart failure 108070781 Active Diabetes type 2 with nephropathy 662799249 Active Chronic kidney disease stage IV 939694698 Active Anasarca 124126069 Active BPH 669019215 07/13/2021 Resolved GERD 593517178 07/13/2021 Resolved AFIB 29794679 07/13/2021 Resolved Diabetic neuropathy 285499809 07/13/2021 Resol rufina Gout 72871707 07/13/2021 Resolved Hypertension 79600416 07/13/2021 Resolved Results Unknown or Not Available. Active Medications Medication Code Dose Units Frequency Route Modificatio n Start Date/Time Robaxin 500MG Oral Tablet [id number] 1 TABLET THREE TIMES A DAY ORAL 02/12/2023 16:48 Prescription Detail TAKE 1 TABLET ORAL THREE TIMES A DAY Xarelto 15MG Oral Tablet 0984434 15 MILLIGRAMS EVERY EVENING ORAL 07/16/2021 11:09 Prescription Detail TAKE 15 MILLIGRAMS ORAL EVERY EVENING Medications Administered During Visit Unknown or Not Available. Encounters Encounter Diagnosis Diagnosis Code Start Date Hypertensive heart and chron ic kidney disease with heart failure and stage 1 through stage 4 chronic kidney disease, or unspecified chronic kidney disease I130 07/13/2021 Social History Smoking Status Code Start Date End Date Former smoker [id number] [birth year] Patient Decision Aids Unknown or Not Available. Discharge Instructions You were admitted to [facility] on 07/13/2021 01:33 with a principal diagnosis of Hyp hrt & chr kdny dis w hrt fail and stg 1-4/unsp chr kdny You were discharged from [facility] on 07/16/2021 01:34 Should you have any questions prior to [...]
--- OUTSIDE RECORDS SUMMARY | 2023-03-04 21:27 | XMS_ITS | CCD ---
Author Name Unknown Address [address] [place] [address] [id number] Organization Unknown Address [address] [place] [address] [phone] Care Team Providers Care Sailing Master Name Role Phone SUSY JAY Attending Physician [phone] SUSY JAY Rounding (Secondary) Physician [phone] Vital Signs Unknown or Not Available. Allergies Allergy Code Allergy Type Reaction Status LISINOPRIL 36878 Drug allergy Anaphylaxis Active ZITHROMAX 501661 Drug allergy UNKNOWN; Vomiting Activ e Procedures Unknown or Not Available. History of Immunizations Unknown or Not Available. Problems Problem Code Start Date Resolved Date Status Acute diastolic (congestive) heart failure 965601843 Active Diabetes type 2 with nephropathy 307398036 Active Chronic kidney disease stage IV 497646756 Active Anasarca 131387718 Active BPH 804869795 07/13/2021 Resolved GERD 201839628 07/13/2021 Resolved AFIB 66404659 07/13/2021 Resolved Melanoma of facial skin 44373302 12/13/2019 R esolved Diabetic neuropathy 175188760 07/13/2021 Resol rufina Gout 39852253 07/13/2021 Resolved CHF 39451306 12/13/2019 Resolved Hypertension 07250732 07/13/2021 Resolved Diabetes 2 96604744 12/13/2019 Resolved Results Unknown or Not Available. Active Medications Medication Code Dose Units Frequency Route Modificatio n Start Date/Time Robaxin 500MG Oral Tablet [id number] 1 TABLET THREE TIMES A DAY ORAL 02/12/2023 16:48 Prescription Detail TAKE 1 TABLET ORAL THREE TIMES A DAY Xarelto 15MG Oral Tablet [id number] 15 MILLIGRAMS EVERY EVENING ORAL 07/16/2021 11:09 Prescription Detail TAKE 15 MILLIGRAMS ORAL EVERY EVENING Medications Administered During Visit Unknown or Not Available. Encounters Unknown or Not Available. Social History Smoking Status Code Start Date End Date Former smoker [id number] [birth year] Patient Decision Aids Unknown or Not Available. Discharge Instructions You were admitted to [facility] You were discharged from [facility] Should you have any questions prior to [...]
--- OUTSIDE RECORDS SUMMARY | 2023-03-04 21:27 | XMS_ITS | CCD ---
Author Name Unknown Address [address] [place] [address] [phone] Organization Unknown Address [address] [place] [address] [phone] Care Team Providers Care Professor Of Surgery Name Role Phone COTY GHASSAN R Attending Physician [phone] Vital Signs Unknown or Not Available. Allergies Allergy Code Allergy Type Reaction Status LISINOPRIL 72049 Drug allergy Anaphylaxis Active ZITHROMAX 877317 Drug allergy UNKNOWN; Vomiting Activ e Procedures Unknown or Not Available. History of Immunizations Unknown or Not Available. Problems Problem Code Start Date Resolved Date Status Acute diastolic (congestive) heart failure 680768551 Active Diabetes type 2 with nephropathy 868449337 Active Chronic kidney disease stage IV 029786410 Active Anasarca 233323057 Active Results Unknown or Not Available. Active Medications Medication Code Dose Units Frequency Route Modificatio n Start Date/Time Robaxin 500MG Oral Tablet [id number] 1 TABLET THREE TIMES A DAY ORAL 02/12/2023 16:48 Prescription Detail TAKE 1 TABLET ORAL THREE TIMES A DAY Xarelto 15MG Oral Tablet [id number] 15 MILLIGRAMS EVERY EVENING ORAL 07/16/2021 11:09 Prescription Detail TAKE 15 MILLIGRAMS ORAL EVERY EVENING Medications Administered During Visit Unknown or Not Available. Encounters Encounter Diagnosis Diagnosis Code Start Date Complete rotator cuff tear o r rupture of right shoulder, not specified as traumatic [id number] 03/30/2022 Social History Smoking Status Code Start Date End Date Former smoker [id number] [birth year] Patient Decision Aids Unknown or Not Available. Discharge Instructions You were admitted to [facility] on 03/30/2022 09:40 with a principal diagnosis of Complete rotator cuff tear or rupture of right shoulder, not specified as traumatic You were discharged from [facility] on 03/30/2022 09:40 Should you have any questions prior to discharge, please contact a member of your healthcare team. If you have left the hospital and have any questions, please contact your primary care physician. Chief Complaint and Reason For Visit Chief Complaint Date of Onset RT SHOULDER PAIN Function Status Unknown or Not Available. Plan of Care Unknown or Not Available. Referral/Transition of Care Unknown or Not Available.
--- OUTSIDE RECORDS SUMMARY | 2023-03-04 21:27 | XMS_ITS | CCD ---
Author Name Unknown Address [address] [place] [address] [phone] Organization Unknown Address [address] [place] [address] [phone] Care Team Providers Care Double Ending Machine Operator Name Role Phone RADHASUNITA ENNIS Attending Physician [phone] Vital Signs Unknown or Not Available. Allergies Allergy Code Allergy Type Reaction Status LISINOPRIL 60401 Drug allergy Anaphylaxis Active ZITHROMAX 431680 Drug allergy UNKNOWN; Vomiting Activ e Procedures Unknown or Not Available. History of Immunizations Unknown or Not Available. Problems Problem Code Start Date Resolved Date Status Acute diastolic (congestive) heart failure 519837981 Active Diabetes type 2 with nephropathy 974612389 Active Chronic kidney disease stage IV 005532198 Active Anasarca 203983720 Active BPH 470228539 07/13/2021 Resolved GERD 054707856 07/13/2021 Resolved AFIB 49247884 07/13/2021 Resolved Diabetic neuropathy 131639102 07/13/2021 Resol rufina Gout 71908332 07/13/2021 Resolved Hypertension 73637279 07/13/2021 Resolved Results Unknown or Not Available. Active Medications Medication Code Dose Units Frequency Route Modificatio n Start Date/Time Robaxin 500MG Oral Tablet [id number] 1 TABLET THREE TIMES A DAY ORAL 02/12/2023 16:48 Prescription Detail TAKE 1 TABLET ORAL THREE TIMES A DAY Xarelto 15MG Oral Tablet [id number] 15 MILLIGRAMS EVERY EVENING ORAL 07/16/2021 11:09 Prescription Detail TAKE 15 MILLIGRAMS ORAL EVERY EVENING Medications Administered During Visit Unknown or Not Available. Encounters Encounter Diagnosis Diagnosis Code Start Date Anemia, unspecified D649 07/13/2021 Social History Unknown or Not Available. Patient Decision Aids Unknown or Not Available. Discharge Instructions You were admitted to [facility] on 07/13/2021 11:41 with a principal diagnosis of Anemia, unspecified You were discharged from [facility] on 07/13/2021 15:13 Should you have any questions prior to [...]
--- OUTSIDE RECORDS SUMMARY | 2023-03-04 21:27 | XMS_ITS | CCD ---
Author Name Unknown Address [address] [place] [address] [id number] Organization Unknown Address [address] [place] [address] [phone] Care Team Providers Care Customer Sales Service Manager Name Role Phone SUSY JAY Attending Physician [phone] SUSY JAY Rounding (Secondary) Physician [phone] Vital Signs Unknown or Not Available. Allergies Allergy Code Allergy Type Reaction Status LISINOPRIL 70846 Drug allergy Anaphylaxis Active ZITHROMAX 758647 Drug allergy UNKNOWN; Vomiting Activ e Procedures Unknown or Not Available. History of Immunizations Unknown or Not Available. Problems Problem Code Start Date Resolved Date Status Acute diastolic (congestive) heart failure 313984708 Active Diabetes type 2 with nephropathy 717184251 Active Chronic kidney disease stage IV 416208468 Active Anasarca 387660294 Active Results Unknown or Not Available. Active Medications Medication Code Dose Units Frequency Route Modificatio n Start Date/Time Robaxin 500MG Oral Tablet 69659379070 1 TABLET THREE TIMES A DAY ORAL 02/12/2023 16:48 Prescription Detail TAKE 1 TABLET ORAL THREE TIMES A DAY Xarelto 15MG Oral Tablet 1086943 15 MILLIGRAMS EVERY EVENING ORAL 07/16/2021 11:09 Prescription Detail TAKE 15 MILLIGRAMS ORAL EVERY EVENING Medications Administered During Visit Unknown or Not Available. Encounters Encounter Diagnosis Diagnosis Code Start Date Idiopathic osteoarthritis [id number] 2021 Social History Smoking Status Code Start Date End Date Former smoker [id number] 1956 07/20/1970 Patient Decision Aids Unknown or Not Available. Discharge Instructions You were admitted to [facility] on 10/29/2021 08:34 with a principal diagnosis of Unilateral primary osteoarthritis, left knee You were discharged from [facility] on 10/29/2021 00:00 Should you have any questions prior to [...]
--- OUTSIDE RECORDS SUMMARY | 2023-03-04 21:27 | XMS_ITS | CCD ---
Author Name Unknown Address [address] [place] [address] [id number] Organization Unknown Address [address] [place] [address] [phone] Care Team Providers Care Shipwright Supervisor Name Role Phone KAMILAH GONZALEZ Attending Physician [phone] KAMILAH GONZALEZ Rounding (Secondary) Physician [phone] Vital Signs Unknown or Not Available. Allergies Allergy Code Allergy Type Reaction Status LISINOPRIL 21833 Drug allergy Anaphylaxis Active ZITHROMAX 769212 Drug allergy UNKNOWN; Vomiting Activ e Procedures Unknown or Not Available. History of Immunizations Unknown or Not Available. Problems Problem Code Start Date Resolved Date Status Acute diastolic (congestive) heart failure 086330496 Active Diabetes type 2 with nephropathy 934205982 Active Chronic kidney disease stage IV 744320558 Active Anasarca 444905032 Active Results Unknown or Not Available. Active Medications Medication Code Dose Units Frequency Route Modificatio n Start Date/Time Robaxin 500MG Oral Tablet 31864821739 1 TABLET THREE TIMES A DAY ORAL 02/12/2023 16:48 Prescription Detail TAKE 1 TABLET ORAL THREE TIMES A DAY Xarelto 15MG Oral Tablet [id number] 15 MILLIGRAMS EVERY EVENING ORAL 07/16/2021 11:09 Prescription Detail TAKE 15 MILLIGRAMS ORAL EVERY EVENING Medications Administered During Visit Unknown or Not Available. Encounters Encounter Diagnosis Diagnosis Code Start Date Unspecified atrial fibrillation I4891 08/28/2021 Social History Smoking Status Code Start Date End Date Former smoker [id number] 1956 07/20/1970 Patient Decision Aids Unknown or Not Available. Discharge Instructions You were admitted to [facility] on 08/28/2021 07:19 with a principal diagnosis of Unspecified atrial fibrillation You were discharged from [facility] on 08/28/2021 00:00 Should you have any questions prior [...]
--- OUTSIDE RECORDS SUMMARY | 2023-03-04 21:27 | XMS_ITS | CCD ---
Author Name Unknown Address [address] [place] [address] [phone] Organization Unknown Address [address] [place] [address] [phone] Care Team Providers Care Manager Of Tires Sales Name Role Phone MARANDA MARCUS Attending Physician [phone] MARANDA MARCUS Rounding (Secondary) Physician [phone] Vital Signs Unknown or Not Available. Allergies Allergy Code Allergy Type Reaction Status LISINOPRIL 63988 Drug allergy Anaphylaxis Active ZITHROMAX 154012 Drug allergy UNKNOWN; Vomiting Activ e Procedures Unknown or Not Available. History of Immunizations Unknown or Not Available. Problems Problem Code Start Date Resolved Date Status Acute diastolic (congestive) heart failure 163059407 Active Diabetes type 2 with nephropathy 096559520 Active Chronic kidney disease stage IV 982505300 Active Anasarca 463417851 Active Results Unknown or Not Available. Active Medications Medication Code Dose Units Frequency Route Modificatio n Start Date/Time Robaxin 500MG Oral Tablet 97351519350 1 TABLET THREE TIMES A DAY ORAL 02/12/2023 16:48 Prescription Detail TAKE 1 TABLET ORAL THREE TIMES A DAY Xarelto 15MG Oral Tablet [id number] 15 MILLIGRAMS EVERY EVENING ORAL 07/16/2021 11:09 Prescription Detail TAKE 15 MILLIGRAMS ORAL EVERY EVENING Medications Administered During Visit Unknown or Not Available. Encounters Encounter Diagnosis Diagnosis Code Start Date Full thickness rotator cuff tear 453284217 04/29/2022 Social History Smoking Status Code Start Date End Date Former smoker [id number] 1956 07[birth year]20/1970 Patient Decision Aids Unknown or Not Available. Discharge Instructions You were admitted to [facility] on 04/29/2022 00:00 with a principal diagnosis of Complete rotator cuff tear or rupture of right shoulder, not specified as traumatic You were discharged from [facility] on 04/29/2022 00:00 Should you have any questions prior [...]
--- OUTSIDE RECORDS SUMMARY | 2023-03-04 21:27 | XMS_ITS | CCD ---
Author Name Unknown Address [address] [place] [address] [phone] Organization Unknown Address [address] [place] [address] [phone] Care Team Providers Care Casino Dealer Name Role Phone MARANDA MARCUS Attending Physician [phone] MARANDA MARCUS Rounding (Secondary) Physician [phone] Vital Signs Unknown or Not Available. Allergies Allergy Code Allergy Type Reaction Status LISINOPRIL 25218 Drug allergy Anaphylaxis Active ZITHROMAX 902018 Drug allergy UNKNOWN; Vomiting Activ e Procedures Unknown or Not Available. History of Immunizations Unknown or Not Available. Problems Problem Code Start Date Resolved Date Status Acute diastolic (congestive) heart failure 788321263 Active Diabetes type 2 with nephropathy 381575844 Active Chronic kidney disease stage IV 311448942 Active Anasarca 704317875 Active Results Unknown or Not Available. Active Medications Medication Code Dose Units Frequency Route Modificatio n Start Date/Time Robaxin 500MG Oral Tablet 32339135964 1 TABLET THREE TIMES A DAY ORAL 02/12/2023 16:48 Prescription Detail TAKE 1 TABLET ORAL THREE TIMES A DAY Xarelto 15MG Oral Tablet [id number] 15 MILLIGRAMS EVERY EVENING ORAL 07/16/2021 11:09 Prescription Detail TAKE 15 MILLIGRAMS ORAL EVERY EVENING Medications Administered During Visit Unknown or Not Available. Encounters Encounter Diagnosis Diagnosis Code Start Date Other specific arthropathies , not elsewhere classified, right shoulder [id number] 06/29/2022 Social History Smoking Status Code Start Date End Date Former smoker [id number] 1956 07/20/1970 Patient Decision Aids Unknown or Not Available. Discharge Instructions You were admitted to [facility] on 06/29/2022 14:22 with a principal diagnosis of Other specific arthropathies, not elsewhere classified, right shoulder You were discharged from [facility] on 06/29/2022 00:00 Should you have any questions prior [...]
--- OUTSIDE RECORDS SUMMARY | 2023-03-04 21:28 | XMS_ITS | CCD ---
Author Name Unknown Address [address] [place] [address] [id number] Organization Unknown Address [address] [place] [address] [id number] Care Team Providers Care Pond Supervisor Name Role Phone SIMBA DOSS Attending Physician [phone] SUNITA GARCIA Er Physician [phone] SUNITA GARCIA Rounding (Secondary) Physician [phone] ANGELINA Brunson Registered Nurse [phone] Vital Signs Vital Sign Value Unit Date/Time Recent/Initial ? BP Systolic 120 mmHg 07/13/2021 11:41 Initial VS BP Diastolic 84 mmHg 07/13/2021 11:41 Initia l VS Respiratory Rate 18 bpm 07/13/2021 11:41 In itial VS Heart Rate 69 bpm 07/13/2021 11:41 Initial VS O2 % BldC Oximetry 98 % 07/13/2021 11:41 Initial VS BMI (Body Mass Index) 38.27 kg/m^2 07/13/2021 12: 13 Initial VS Weight Measured 282.19 lbs 07/13/2021 12:13 Ini tial VS Height 72 in 07/13/2021 12:13 Initial VS BSA (Body Surface Area) 2.55 m^2 07/13/2021 1 2:13 Initial VS Body Temperature 36.8 degrees 07/13/2021 12:13 In itial VS Weight Measured 266.4 lbs 07/16/2021 06:30 Mos t Recent VS BP Systolic 132 mmHg 07/16/2021 07:32 Most Re cent VS BP Diastolic 89 mmHg 07/16/2021 07:32 Most R ecent VS Respiratory Rate 16 bpm 07/16/2021 07:[address] Recent VS Heart Rate 77 bpm 07/16/2021 07:32 Most Rec ent VS O2 % BldC Oximetry 97 % 07/16/2021 07:32 Most Recent VS Body Temperature 36.1 degrees 07/16/2021 07:[address] Recent VS Allergies Allergy Code Allergy Type Reaction Status LISINOPRIL 62463 Drug allergy Anaphylaxis Active ZITHROMAX 119938 Drug allergy UNKNOWN; Vomiting Activ e Procedures Unknown or Not Available. History of Immunizations Unknown or Not Available. Problems Problem Code Start Date Resolved Date Status Acute diastolic (congestive) heart failure 796098363 Active Diabetes type 2 with nephropathy 522166014 Active Chronic kidney disease stage IV 283448452 Active Anasarca 235486287 Active BPH 183804911 07/13/2021 Resolved GERD 838575404 07/13/2021 Resolved AFIB 02411183 07/13/2021 Resolved Diabetic neuropathy 068870181 07/13/2021 Resol rufina Gout 86201816 07/13/2021 Resolved Hypertension 05446415 07/13/2021 Resolved Results BASIC METABOLIC PANEL (BMP) - Collect Date/Time: 07/14/2021 06:37 Test Name Code Test Result Test Units Test Ref Rang e GLUCOSE 2345-7 115 mg/dL L=70 H=116 BUN 3094-0 69 mg/dL L=6 H=25 CREATININE 2160-0 2.61 mg/dL L=0.67 H=1.17 SODIUM SERUM 2951-2 138 mmol/L L=136 H=145 POTASSIUM SERUM 2823-3 4.7 mmol/L L=3.4 H=5 .2 CHLORIDE SERUM 2075-0 103 mmol/L L=96 H=110 CARBON DIOXIDE (CO2) 2028-9 27 mmol/L L=22 H=34 ANION GAP 19363-8 8.0 mmol/L CALCIUM SERUM 02089-3 9.2 mg/dL L=8.2 H=10. 2 AGE 80 years eGFR (non-Afr.Amer.) 71354-9 24 mL/min eGFR (Afr-Dominican) 61652-6 29 mL/min BNP (PRO-B NATRIURETIC PEPTI DE) - Collect Date/Time: 07/13/2021 12:06 Test Name Code Test Result Test Units Test Ref Rang e NT-proBNP 02194-9 3455.0 pg/mL L=0.0 H=450 COMPREHENSIVE METABOLIC PANE L (CMP) - Collect Date/Time: 07/13/2021 12:06 Test Name Code Test Result Test Units Test Ref Rang e GLUCOSE 2345-7 129 mg/dL L=70 H=116 BUN 3094-0 73 mg/dL L=6 H=25 CREATININE 2160-0 2.84 mg/dL L=0.67 H=1.17 SODIUM SERUM 2951-2 140 mmol/L L=136 H=145 POTASSIUM SERUM 2823-3 5.4 mmol/L L=3.4 H=5 .2 CHLORIDE SERUM 2075-0 103 mmol/L L=96 H=110 CARBON DIOXIDE (CO2) 2028-9 29 mmol/L L=22 H=34 ANION GAP 59345-7 7.9 mmol/L CALCIUM SERUM 89087-9 8.9 mg/dL L=8.2 H=10. 2 BILIRUBIN TOTAL 1975-2 0.5 mg/dL L=0.0 H=1 .3 ALK. PHOS. 6768-6 142 U/L L=46 H=116 SGOT (AST) 1920-8 30 U/L L=15 H=37 SGPT (ALT) 1742-6 22 U/L L=12 H=78 TOTAL PROTEIN 2885-2 7.5 gm/dL L=6.0 H=8.0 ALBUMIN 1751-7 3.8 gm/dL L=3.4 H=5.0 AGE 80 years eGFR (non-Afr.Amer.) 65668-1 22 mL/min eGFR (Afr-Dominican) 40600-7 26 mL/min GLUCOSE FINGER/HEEL CAPILLAR Y - Collect Date/Time: 07/16/2021 12:02 Test Name Code Test Result Test Units Test Ref Rang e GLUCOSE CAP 203 mg/dL L=70 H=116 GLUCOSE FINGER/HEEL CAPILLAR Y - Collect Date/Time: 07/16/2021 08:05 Test Name Code Test Result Test Units Test Ref Rang e GLUCOSE CAP 135 mg/dL L=70 H=116 GLUCOSE FINGER/HEEL CAPILLAR Y - Collect Date/Time: 07/15/2021 20:16 Test Name Code Test Result Test Units Test Ref Rang e GLUCOSE CAP 181 mg/dL L=70 H=116 GLUCOSE FINGER/HEEL CAPILLAR Y - Collect Date/Time: 07/15/2021 16:44 Test Name Code Test Result Test Units Test Ref Rang e GLUCOSE CAP 161 mg/dL L=70 H=116 GLUCOSE FINGER/HEEL CAPILLAR Y - Collect Date/Time: 07/15/2021 11:44 Test Name Code Test Result Test Units Test Ref Rang e GLUCOSE CAP 167 mg/dL L=70 H=116 GLUCOSE FINGER/HEEL CAPILLAR Y - Collect Date/Time: 07/15/2021 08:21 Test Name Code Test Result Test Units Test Ref Rang e GLUCOSE CAP 158 mg/dL L=70 H=116 GLUCOSE FINGER/HEEL CAPILLAR Y - Collect Date/Time: 07/14/2021 21:53 Test Name Code Test Result Test Units Test Ref Rang e GLUCOSE CAP 191 mg/dL L=70 H=116 GLUCOSE FINGER/HEEL CAPILLAR Y - Collect Date/Time: 07/14/2021 17:13 Test Name Code Test Result Test Units Test Ref Rang e GLUCOSE CAP 202 mg/dL L=70 H=116 GLUCOSE FINGER/HEEL CAPILLAR Y - Collect Date/Time: 07/14/2021 11:26 Test Name Code Test Result Test Units Test Ref Rang e GLUCOSE CAP 208 mg/dL L=70 H=116 GLUCOSE FINGER/HEEL CAPILLAR Y - Collect Date/Time: 07/14/2021 07:45 Test Name Code Test Result Test Units Test Ref Rang e GLUCOSE CAP 108 mg/dL L=70 H=116 GLUCOSE FINGER/HEEL CAPILLAR Y - Collect Date/Time: 07/13/2021 20:43 Test Name Code Test Result Test Units Test Ref Rang e GLUCOSE CAP 145 mg/dL L=70 H=116 GLUCOSE FINGER/HEEL CAPILLAR Y - Collect Date/Time: 07/13/2021 17:04 Test Name Code Test Result Test Units Test Ref Rang e GLUCOSE CAP 74 mg/dL L=70 H=116 TROPONIN HIGH SENSITIVITY* - Collect Date/Time: 07/13/2021 12:06 Test Name Code Test Result Test Units Test Ref Rang e TROPONIN HS 21.8 pg/mL L=0.0 H=60.4 Specimen seq. Random N/A CBC W/ DIFFERENTIAL* - Colle ct Date/Time: 07/14/2021 06:37 Test Name Code Test Result Test Units Test Ref Rang e WBC 6690-2 5.63 th/cmm L=5.00 H=10.00 NEUT % 65.5 % L=40.0 H=80.0 LYMPH % 22.7 % L=10.0 H=50.0 MONO % 35640-8 8.9 % L=2.0 H=12.0 EOS % 2.5 % L=0.0 H=8.0 BASO % 0.2 % L=0.0 H=3.0 IG % 2514-8 0.2 % L=0.0 H=1.1 NRBC % 41509-4 0.0 % L=0.0 H=0.0 NEUT abs count 751-8 3.7 th/cmm L=1.6 H=8. 4 LYMPH abs count 731-0 1.3 th/cmm L=1.5 H=4 .0 MONO abs count 742-7 0.5 th/cmm L=0.2 H=1. 0 EOS abs count 711-2 0.1 th/cmm L=0.0 H=0.5 BASO abs count 704-7 0.0 th/cmm L=0.0 H=0. 2 IG abs count 47002-6 0.0 th/cmm L=0.0 H=0.1 NRBC abs count 98803-6 0.0 mil/cmm L=0.0 H=0. 0 RBC 789-8 2.83 mil/cmm L=4.30 H=6.20 HEMOGLOBIN 718-7 10.1 gm/dL L=13.0 H=17.0 HEMATOCRIT 4544-3 31 % L=45 H=52 MCV 787-2 110 fL L=82 H=92 MCH 785-6 35.7 pg L=27.0 H=31.0 MCHC 786-4 32.4 % L=32.0 H=36.0 RDW-SD 788-0 57.8 fL L=39.0 H=49.0 PLATELET COUNT 777-3 159 th/cmm L=150 H=45 0 CBC W/ DIFFERENTIAL* - [facility] ct Date/Time: 07/13/2021 12:06 Test Name Code Test Result Test Units Test Ref Rang e WBC 6690-2 4.44 th/cmm L=5.00 H=10.00 NEUT % 68.1 % L=40.0 H=80.0 LYMPH % 20.3 % L=10.0 H=50.0 MONO % 11732-1 8.1 % L=2.0 H=12.0 EOS % 2.5 % L=0.0 H=8.0 BASO % 0.5 % L=0.0 H=3.0 IG % 2514-8 0.5 % L=0.0 H=1.1 NRBC % 65771-1 0.0 % L=0.0 H=0.0 NEUT abs count 751-8 3.0 th/cmm L=1.6 H=8. 4 LYMPH abs count 731-0 0.9 th/cmm L=1.5 H=4 .0 MONO abs count 742-7 0.4 th/cmm L=0.2 H=1. 0 EOS abs count 711-2 0.1 th/cmm L=0.0 H=0.5 BASO abs count 704-7 0.0 th/cmm L=0.0 H=0. 2 IG abs count 92127-8 0.0 th/cmm L=0.0 H=0.1 NRBC abs count 73061-1 0.0 mil/cmm L=0.0 H=0. 0 RBC 789-8 2.88 mil/cmm L=4.30 H=6.20 HEMOGLOBIN 718-7 10.1 gm/dL L=13.0 H=17.0 HEMATOCRIT 4544-3 32 % L=45 H=52 MCV 787-2 112 fL L=82 H=92 MCH 785-6 35.1 pg L=27.0 H=31.0 MCHC 786-4 31.4 % L=32.0 H=36.0 RDW-SD 788-0 57.8 fL L=39.0 H=49.0 PLATELET COUNT 777-3 167 th/cmm L=150 H=45 0 EMI COVID RHEONIX* - [facility] ect Date/Time: 07/13/2021 12:15 Test Name Code Test Result Test Units Test Ref Rang e Tier- 51910-0 INPATIENT/ED N/A SARS COV2 RNA: 80330-8 NEGATIVE N/A REFERENCE RANGE: NEGAT Active Medications Medications Administered During Visit Medication Dose Units Frequency Route Date/Time of Last Dose FUROSEMIDE INJ SDV: 40MG/4ML 40 MG X1 IVP 07/13/2021 12:1 7 SODIUM CHLORIDE 0.9% FLUSH 10ML SYRINGE 2 ML Q8H IVP 14:59 ACETAMINOPHEN TABLET: 325MG 975 MG PRN Q6H PO 07/15/2021 21:3 7 DOCUSATE SODIUM CAPSULE: 100MG 100 MG PRN BID PO 07/15/2021 08:1 8 SENNA CONC TABLET: 8.6MG 8.6 MG PRN DAILY PO 07/16/2021 08:40 INSULIN PEN LISPRO: 300UNITS/3ML 2 Unit(s) PRN SUBQ 07/16/2021 12:1 7 FUROSEMIDE INJ SDV: 40MG/4ML 40 MG BID (0800 AND 1459) IVP 07/16/19 14:59 FINASTERIDE TABLET: 5MG 5 MG BEDTIME PO 07/15/2021 19:38 GABAPENTIN CAPSULE: 100MG 100 MG BID PO 07/16/2021 08:39 METOPROLOL TARTRATE TABLET: 50MG 50 MG BID PO 07/16/2021 08:3 9 PANTOPRAZOLE TABLET: 40MG 40 MG Q7AM PO 07/16/2021 06:29 ATORVASTATIN TABLET: 20MG 20 MG BEDTIME PO 07/15/2021 20:10 VITAMIN D3 TABLET: 1000UNITS 2000 UNITS DAILY PO 07/16/2021 08:3 9 RIVAROXABAN TAB: 10MG 15 MG Q5PM PO 07/15/2021 18:37 VALSARTAN TABLET: 40MG 20 MG DAILY PO 07/16/2021 08:40 ALLOPURINOL TABLET: 100MG 100 MG BID PO 07/16/2021 08:39 INSULIN PEN GLARGINE: 300UNITS/3ML 35 Unit(s) BID SUBQ 07/16/2021 09:1 1 FUROSEMIDE TABLET: 40MG 40 MG X1 PO 07/16/2021 08:39 FUROSEMIDE TABLET: 40MG 40 MG BID (0800 AND 14 59) PO 07/16/2021 13:53 Encounters Encounter Diagnosis Diagnosis Code Start Date Hypertensive heart and chron ic kidney disease with heart failure and stage 1 through stage 4 chronic kidney disease, or unspecified chronic kidney disease I130 07/13/2021 Social History Smoking Status Code Start Date End Date Former smoker [id number] 1956 07/20/1970 Patient Decision Aids Patient Decision Aid Heart Failure Patient Portal Access Discharge Instructions You were admitted to [facility] on 07/13/2021 15:13 with a principal diagnosis of Congestive Heart Failure You had the following tests done:GLUCOSE FINGER/HEEL CAPILLARYGLUCOSE FINGER/HEEL CAPILLARYGLUCOSE FINGER/HEEL CAPILLARYGLUCOSE FINGER/HEEL CAPILLARYGLUCOSE FINGER/HEEL CAPILLARYGLUCOSE FINGER/HEEL CAPILLARYGLUCOSE FINGER/HEEL CAPILLARYGLUCOSE FINGER/HEEL CAPILLARYGLUCOSE FINGER/HEEL CAPILLARYGLUCOSE FINGER/HEEL CAPILLARYBASIC METABOLIC PANEL (BMP)CBC W/ DIFFERENTIAL*GLUCOSE FINGER/HEEL CAPILLARYGLUCOSE FINGER/HEEL CAPILLARYCOPLEY COVID RHEONIX*BNP (PRO- B NATRIURETIC PEPTIDE)CBC W/ DIFFERENTIAL*COMPREHENSIVE METABOLIC PANEL (CMP)TROPONIN HIGH SENSITIVITY* You were discharged from [facility] on 07/16/2021 15:00 Should you have any questions prior to discharge, please contact a member of your healthcare team. If you have left the hospital and have any questions, please contact your primary care physician. Chief Complaint and Reason For Visit Chief Complaint Date of Onset ACUTE DIASTOLIC HEART FAILURE 07/13/2021 Function Status Unknown or Not Available. Plan of Care Unknown or Not Available. Referral/Transition of Care Unknown or Not Available.
--- OUTSIDE RECORDS SUMMARY | 2023-03-04 21:28 | XMS_ITS | CCD ---
Author Name Unknown Address [address] [place] [address] [phone] Organization Unknown Address [address] [place] [address] [phone] Care Team Providers Care Chief Librarian Circulation Department Name Role Phone ALIYAH DUMONT Attending Physician [phone] Vital Signs Unknown or Not Available. Allergies Allergy Code Allergy Type Reaction Status LISINOPRIL 62265 Drug allergy Anaphylaxis Active ZITHROMAX 882543 Drug allergy UNKNOWN; Vomiting Activ e Procedures Unknown or Not Available. History of Immunizations Unknown or Not Available. Problems Problem Code Start Date Resolved Date Status Acute diastolic (congestive) heart failure 222760242 Active Diabetes type 2 with nephropathy 330696631 Active Chronic kidney disease stage IV 528297335 Active Anasarca 825091447 Active BPH 510153852 07/13/2021 Resolved GERD 350591736 07/13/2021 Resolved AFIB 22236598 07/13/2021 Resolved Diabetic neuropathy 781619229 07/13/2021 Resol rufina Gout 71839831 07/13/2021 Resolved Hypertension 88969668 07/13/2021 Resolved Results EMI COVID BENITOX* - Guzman ect Date/Time: 04/08/2021 09:46 Test Name Code Test Result Test Units Test Ref Rang e Tier- 35089-1 PRE-OP N/A SARS COV2 RNA: 25207-3 NEGATIVE N/A REFERENCE RANGE: NEGAT Active Medications Medication Code Dose Units Frequency Route Modificatio n Start Date/Time Robaxin 500MG Oral Tablet 97477515857 1 TABLET THREE TIMES A DAY ORAL 02/12/2023 16:48 Prescription Detail TAKE 1 TABLET ORAL THREE TIMES A DAY Xarelto 15MG Oral Tablet 1811721 15 MILLIGRAMS EVERY EVENING ORAL 07/16/2021 11:09 Prescription Detail TAKE 15 MILLIGRAMS ORAL EVERY EVENING Medications Administered During Visit Unknown or Not Available. Encounters Encounter Diagnosis Diagnosis Code Start Date Pre-surgery testing 429319005 04/08/2021 Social History Smoking Status Code Start Date End Date Former smoker [id number] 1956 07[birth year]20[birth year]1969 Patient Decision Aids Unknown or Not Available. Discharge Instructions You were admitted to [facility] on 04/08/2021 05:37 with a principal diagnosis of Encounter for preprocedural laboratory examination You had the following tests done:[facility] COVID RHEONIX* You were discharged from [facility] on 04/08/2021 05:37 Should you have any questions prior to [...]
--- OUTSIDE RECORDS SUMMARY | 2023-03-04 21:28 | XMS_ITS | CCD ---
Author Name Unknown Address [address] [place] [address] [phone] Organization Unknown Address [address] [place] [address] [phone] Care Team Providers Care Test Skein Winder Name Role Phone CALLY FUENTES Attending Physician [phone] CALLY FUENTES Rounding (Secondary) Physician [phone] Vital Signs Unknown or Not Available. Allergies Allergy Code Allergy Type Reaction Status LISINOPRIL 77954 Drug allergy Anaphylaxis Active ZITHROMAX 803652 Drug allergy UNKNOWN; Vomiting Activ e Procedures Unknown or Not Available. History of Immunizations Unknown or Not Available. Problems Problem Code Start Date Resolved Date Status Acute diastolic (congestive) heart failure 849284525 Active Diabetes type 2 with nephropathy 257027819 Active Chronic kidney disease stage IV 778999518 Active Anasarca 711411426 Active BPH 302998407 07/13/2021 Resolved GERD 408075268 07/13/2021 Resolved AFIB 49201715 07/13/2021 Resolved Diabetic neuropathy 055473701 07/13/2021 Resol rufina Gout 50510852 07/13/2021 Resolved Hypertension 32007026 07/13/2021 Resolved Results Unknown or Not Available. Active Medications Medication Code Dose Units Frequency Route Modificatio n Start Date/Time Robaxin 500MG Oral Tablet [id number] 1 TABLET THREE TIMES A DAY ORAL 02/12/2023 16:48 Prescription Detail TAKE 1 TABLET ORAL THREE TIMES A DAY Xarelto 15MG Oral Tablet 2537503 15 MILLIGRAMS EVERY EVENING ORAL 07/16/2021 11:09 Prescription Detail TAKE 15 MILLIGRAMS ORAL EVERY EVENING Medications Administered During Visit Unknown or Not Available. Encounters Encounter Diagnosis Diagnosis Code Start Date Removal of suture 69683617 04/22/2021 Social History Smoking Status Code Start Date End Date Former smoker [id number] 1956 07/20[birth year]1969 Patient Decision Aids Unknown or Not Available. Discharge Instructions You were admitted to [facility] on 04/22/2021 11:31 with a principal diagnosis of Encounter for removal of sutures You were discharged from [facility] on 04/22/2021 00:00 Should you have any questions prior [...]
--- OUTSIDE RECORDS SUMMARY | 2023-03-04 21:28 | XMS_ITS | CCD ---
Author Name Unknown Address [address] [place] [address] [phone] Organization Unknown Address [address] [place] [address] [phone] Care Team Providers Care Can Pusher Name Role Phone JC SOTO Attending Physician [phone] JC SOTO Rounding (Secondary) Physician [phone] Vital Signs Unknown or Not Available. Allergies Allergy Code Allergy Type Reaction Status LISINOPRIL 97097 Drug allergy Anaphylaxis Active ZITHROMAX 874589 Drug allergy UNKNOWN; Vomiting Activ e Procedures Unknown or Not Available. History of Immunizations Unknown or Not Available. Problems Problem Code Start Date Resolved Date Status Acute diastolic (congestive) heart failure 132992265 Active Diabetes type 2 with nephropathy 956596425 Active Chronic kidney disease stage IV 336657552 Active Anasarca 325129629 Active BPH 028441735 07/13/2021 Resolved GERD 932559226 07/13/2021 Resolved AFIB 12222255 07/13/2021 Resolved Diabetic neuropathy 958164851 07/13/2021 Resol rufina Gout 94327031 07/13/2021 Resolved Hypertension 03213851 07/13/2021 Resolved Results Unknown or Not Available. Active Medications Medication Code Dose Units Frequency Route Modificatio n Start Date/Time Robaxin 500MG Oral Tablet [id number] 1 TABLET THREE TIMES A DAY ORAL 02/12/2023 16:48 Prescription Detail TAKE 1 TABLET ORAL THREE TIMES A DAY Xarelto 15MG Oral Tablet 6423971 15 MILLIGRAMS EVERY EVENING ORAL 07/16/2021 11:09 Prescription Detail TAKE 15 MILLIGRAMS ORAL EVERY EVENING Medications Administered During Visit Unknown or Not Available. Encounters Encounter Diagnosis Diagnosis Code Start Date Idiopathic osteoarthritis [id number] 2020 Social History Smoking Status Code Start Date End Date Former smoker [id number] 1956 07/20/1970 Patient Decision Aids Unknown or Not Available. Discharge Instructions You were admitted to [facility] on 02/12/2021 13:09 with a principal diagnosis of Unilateral primary osteoarthritis, left knee You were discharged from [facility] on 02/12/2021 00:00 Should you have any questions prior [...]
--- OUTSIDE RECORDS SUMMARY | 2023-03-04 21:28 | XMS_ITS | CCD ---
Author Name Unknown Address [address] [place] [address] [phone] Organization Unknown Address [address] [place] [address] [phone] Care Team Providers Care Medical Records Assistant Name Role Phone JC SOTO Attending Physician [phone] JC SOTO Rounding (Secondary) Physician [phone] Vital Signs Unknown or Not Available. Allergies Allergy Code Allergy Type Reaction Status LISINOPRIL 47201 Drug allergy Anaphylaxis Active ZITHROMAX 240802 Drug allergy UNKNOWN; Vomiting Activ e Procedures Unknown or Not Available. History of Immunizations Unknown or Not Available. Problems Problem Code Start Date Resolved Date Status Acute diastolic (congestive) heart failure 379891023 Active Diabetes type 2 with nephropathy 753355560 Active Chronic kidney disease stage IV 610719623 Active Anasarca 012327335 Active BPH 015232063 07/13/2021 Resolved GERD 717571292 07/13/2021 Resolved AFIB 71401859 07/13/2021 Resolved Diabetic neuropathy 179312632 07/13/2021 Resol rufina Gout 42211189 07/13/2021 Resolved Hypertension 72375433 07/13/2021 Resolved Results Unknown or Not Available. Active Medications Medication Code Dose Units Frequency Route Modificatio n Start Date/Time Robaxin 500MG Oral Tablet 55936438066 1 TABLET THREE TIMES A DAY ORAL 02/12/2023 16:48 Prescription Detail TAKE 1 TABLET ORAL THREE TIMES A DAY Xarelto 15MG Oral Tablet 4327671 15 MILLIGRAMS EVERY EVENING ORAL 07/16/2021 11:09 Prescription Detail TAKE 15 MILLIGRAMS ORAL EVERY EVENING Medications Administered During Visit Unknown or Not Available. Encounters Encounter Diagnosis Diagnosis Code Start Date Idiopathic osteoarthritis 794132075 2021 Social History Smoking Status Code Start Date End Date Former smoker [id number] 1956 07/20[birth year]1969 Patient Decision Aids Unknown or Not Available. Discharge Instructions You were admitted to [facility] on 04/09/2021 11:16 with a principal diagnosis of Unilateral primary osteoarthritis, left knee You were discharged from [facility] on 04/09/2021 00:00 Should you have any questions prior [...]
--- OUTSIDE RECORDS SUMMARY | 2023-03-04 21:28 | XMS_ITS | CCD ---
Author Name Unknown Address [address] [place] [address] [phone] Organization Unknown Address [address] [place] [address] [phone] Care Team Providers Care Aircraft Engine Mechanic Overhaul Name Role Phone JESSICA UMAÑA Attending Physician [phone] JESSICA UMAÑA Er Physician [phone] ALIE Werner Registered Nurse [phone] Vital Signs Vital Sign Value Unit Date/Time Recent/Initial ? BMI (Body Mass Index) 32.98 kg/m^2 02/12/2021 15: 31 Initial VS Weight Measured 250 lbs 02/12/2021 15:31 Ini tial VS Height 73 in 02/12/2021 15:31 Initial VS BSA (Body Surface Area) 2.42 m^2 02/12/2021 1 5:31 Initial VS BP Systolic 146 mmHg 02/12/2021 15:31 Initial VS BP Diastolic 84 mmHg 02/12/2021 15:31 Initia l VS Respiratory Rate 18 bpm 02/12/2021 15:31 In itial VS Heart Rate 78 bpm 02/12/2021 15:31 Initial VS O2 % BldC Oximetry 100 % 02/12/2021 15:31 Initial VS Body Temperature 36.1 degrees 02/12/2021 15:31 In itial VS BP Systolic 141 mmHg 02/12/2021 18:49 Most Re cent VS BP Diastolic 66 mmHg 02/12/2021 18:49 Most R ecent VS Respiratory Rate 19 bpm 02/12/2021 18:[address] Recent VS Heart Rate 72 bpm 02/12/2021 18:49 Most Rec ent VS O2 % BldC Oximetry 98 % 02/12/2021 18:49 Most Recent VS Allergies Allergy Code Allergy Type Reaction Status LISINOPRIL 62358 Drug allergy Anaphylaxis Active ZITHROMAX 151711 Drug allergy UNKNOWN; Vomiting Activ e Procedures Unknown or Not Available. History of Immunizations Unknown or Not Available. Problems Problem Code Start Date Resolved Date Status Acute diastolic (congestive) heart failure 332929972 Active Diabetes type 2 with nephropathy 852862111 Active Chronic kidney disease stage IV 981084649 Active Anasarca 605561669 Active BPH 599358477 07/13/2021 Resolved GERD 684037477 07/13/2021 Resolved AFIB 43107355 07/13/2021 Resolved Diabetic neuropathy 400297549 07/13/2021 Resol rufina Gout 30983777 07/13/2021 Resolved Hypertension 38350573 07/13/2021 Resolved Results Unknown or Not Available. Active Medications Unknown or Not Available. Medications Administered During Visit Unknown or Not Available. Encounters Encounter Diagnosis Diagnosis Code Start Date Injury of shoulder and upper arm 632191356 02/12/2021 Social History Smoking Status Code Start Date End Date Former smoker [id number] 1956 07/20[birth year]1969 Patient Decision Aids Unknown or Not Available. Discharge Instructions You were admitted to [facility] on 02/12/2021 13:59 with a principal diagnosis of Unspecified injury of left shoulder and upper arm, initial encounter You were discharged from [facility] on 02/12/2021 18:51 Should you have any questions prior to discharge, please contact a member of your healthcare team. If you have left the hospital and have any questions, please contact your primary care physician. Chief Complaint and Reason For Visit Chief Complaint Date of Onset LEFT SHOULDER PAIN Function Status Unknown or Not Available. Plan of Care Unknown or Not Available. Referral/Transition of Care Unknown or Not Available.
--- OUTSIDE RECORDS SUMMARY | 2023-03-04 21:28 | XMS_ITS | CCD ---
Author Name Unknown Address [address] [place] [address] [id number] Organization Unknown Address [address] [place] [address] [id number] Care Team Providers Care Orderly Name Role Phone JC SOTO Attending Physician [phone] JC SOTO Rounding (Secondary) Physician [phone] Vital Signs Unknown or Not Available. Allergies Allergy Code Allergy Type Reaction Status LISINOPRIL 20021 Drug allergy Anaphylaxis Active ZITHROMAX 507376 Drug allergy UNKNOWN; Vomiting Activ e Procedures Unknown or Not Available. History of Immunizations Unknown or Not Available. Problems Problem Code Start Date Resolved Date Status Acute diastolic (congestive) heart failure 453748944 Active Diabetes type 2 with nephropathy 356227786 Active Chronic kidney disease stage IV 773025047 Active Anasarca 613417958 Active BPH 690740507 07/13/2021 Resolved GERD 138630578 07/13/2021 Resolved AFIB 98333824 07/13/2021 Resolved Diabetic neuropathy 032546784 07/13/2021 Resol rufina Gout 74805710 07/13/2021 Resolved Hypertension 72317715 07/13/2021 Resolved Results Unknown or Not Available. Active Medications Medication Code Dose Units Frequency Route Modificatio n Start Date/Time Robaxin 500MG Oral Tablet 22553174823 1 TABLET THREE TIMES A DAY ORAL 02/12/2023 16:48 Prescription Detail TAKE 1 TABLET ORAL THREE TIMES A DAY Xarelto 15MG Oral Tablet 9481424 15 MILLIGRAMS EVERY EVENING ORAL 07/16/2021 11:09 Prescription Detail TAKE 15 MILLIGRAMS ORAL EVERY EVENING Medications Administered During Visit Unknown or Not Available. Encounters Encounter Diagnosis Diagnosis Code Start Date Idiopathic osteoarthritis [id number] 2021 Social History Smoking Status Code Start Date End Date Former smoker [id number] 1956 07/20/1970 Patient Decision Aids Unknown or Not Available. Discharge Instructions You were admitted to [facility] on 04/15/2021 09:33 with a principal diagnosis of Unilateral primary osteoarthritis, left knee You were discharged from [facility] on 04/15/2021 00:00 Should you have any questions prior [...]
--- OUTSIDE RECORDS SUMMARY | 2023-03-04 21:28 | XMS_ITS | CCD ---
Author Name Unknown Address [address] [place] [address] [id number] Organization Unknown Address [address] [place] [address] [phone] Care Team Providers Care Vp Customer Service Name Role Phone MARANDA MARCUS Attending Physician [phone] MARANDA MARCUS Rounding (Secondary) Physician [phone] Vital Signs Unknown or Not Available. Allergies Allergy Code Allergy Type Reaction Status LISINOPRIL 74792 Drug allergy Anaphylaxis Active ZITHROMAX 625747 Drug allergy UNKNOWN; Vomiting Activ e Procedures Unknown or Not Available. History of Immunizations Unknown or Not Available. Problems Problem Code Start Date Resolved Date Status Acute diastolic (congestive) heart failure 576815998 Active Diabetes type 2 with nephropathy 436254495 Active Chronic kidney disease stage IV 924694335 Active Anasarca 425467554 Active BPH 417057494 07/13/2021 Resolved GERD 638261626 07/13/2021 Resolved AFIB 49393054 07/13/2021 Resolved Diabetic neuropathy 156420875 07/13/2021 Resol rufina Gout 44401637 07/13/2021 Resolved Hypertension 81159832 07/13/2021 Resolved Results Unknown or Not Available. Active Medications Medication Code Dose Units Frequency Route Modificatio n Start Date/Time Robaxin 500MG Oral Tablet 22929309118 1 TABLET THREE TIMES A DAY ORAL 02/12/2023 16:48 Prescription Detail TAKE 1 TABLET ORAL THREE TIMES A DAY Xarelto 15MG Oral Tablet 1315838 15 MILLIGRAMS EVERY EVENING ORAL 07/16/2021 11:09 Prescription Detail TAKE 15 MILLIGRAMS ORAL EVERY EVENING Medications Administered During Visit Unknown or Not Available. Encounters Encounter Diagnosis Diagnosis Code Start Date Idiopathic osteoarthritis [id number] 2021 Social History Smoking Status Code Start Date End Date Former smoker [id number] [birth year] Patient Decision Aids Unknown or Not Available. Discharge Instructions You were admitted to [facility] on 04/01/2021 13:35 with a principal diagnosis of Unilateral primary osteoarthritis, left knee You were discharged from [facility] on 04/01/2021 00:00 Should you have any questions prior [...]
--- OUTSIDE RECORDS SUMMARY | 2023-03-04 21:28 | XMS_ITS | CCD ---
Author Name Unknown Address [address] [place] [address] [id number] Organization Unknown Address [address] [place] [address] [id number] Care Team Providers Care Run Boat Operator Name Role Phone ALIYAH DUMONT Attending Physician [phone] Vital Signs Unknown or Not Available. Allergies Allergy Code Allergy Type Reaction Status LISINOPRIL 40804 Drug allergy Anaphylaxis Active ZITHROMAX 573488 Drug allergy UNKNOWN; Vomiting Activ e Procedures Procedure Code Procedure Type Date Neuroplasty &/Or Transpositi on; Median Nerve At Carpal Tunnel 52657 CPT 04/10/2021 History of Immunizations Unknown or Not Available. Problems Problem Code Start Date Resolved Date Status Acute diastolic (congestive) heart failure 535376459 Active Diabetes type 2 with nephropathy 058067571 Active Chronic kidney disease stage IV 410678953 Active Anasarca 745628471 Active BPH 433787755 07/13/2021 Resolved GERD 946400974 07/13/2021 Resolved AFIB 51817290 07/13/2021 Resolved Diabetic neuropathy 274051425 07/13/2021 Resol rufina Gout 00719052 07/13/2021 Resolved Hypertension 94646354 07/13/2021 Resolved Results Unknown or Not Available. Active Medications Medications Administered During Visit Medication Dose Units Frequency Route Date/Time of Last Dose CEPHALEXIN CAPSULE: 500MG 1000 MG X1 PO 04/10/2021 07:17 CELECOXIB CAPSULE: 100MG 200 MG X1 PO 04/10/2021 07:17 ACETAMINOPHEN TABLET: 325MG 975 MG X1 PO 04/10/2021 07:17 Encounters Encounter Diagnosis Diagnosis Code Start Date Carpal tunnel syndrome, right upper limb G5601 04/10/2021 Social History Smoking Status Code Start Date End Date Former smoker [id number] [birth year] Patient Decision Aids Unknown or Not Available. Discharge Instructions You were admitted to [facility] on 04/10/2021 06:56 with a principal diagnosis of Carpal tunnel syndrome, right upper limb You had the following procedures done:Neuroplasty &/Or Transposition; Median Nerve At Carpal Tunnel You were discharged from [facility] on 04/10/2021 09:22 Should you have any questions prior to discharge, please contact a member of your healthcare team. If you have left the hospital and have any questions, please contact your primary care physician. Chief Complaint and Reason For Visit Chief Complaint Date of Onset RIGHT CARPAL TUNNEL RELEASE 30MIN OP Function Status Unknown or Not Available. Plan of Care Unknown or Not Available. Referral/Transition of Care Unknown or Not Available.
--- OUTSIDE RECORDS SUMMARY | 2023-03-04 21:29 | XMS_ITS | CCD ---
Author Name Unknown Address [address] [place] [address] [id number] Organization Unknown Address [address] [place] [address] [id number] Care Team Providers Care Hogshead Dumper Name Role Phone EDWIN BEEBE Attending Physician [phone] JB CHRISTIANSON Er Physician [phone] MAGDIEL Uribe Registered Nurse [phone] Vital Signs Vital Sign Value Unit Date/Time Recent/Initial ? BMI (Body Mass Index) 32.98 kg/m^2 02/12/2023 12: 38 Initial VS Weight Measured 250 lbs 02/12/2023 12:38 Ini tial VS Height 73 in 02/12/2023 12:38 Initial VS BSA (Body Surface Area) 2.42 m^2 02/12/2023 1 2:38 Initial VS BP Systolic 116 mmHg 02/12/2023 12:38 Initial VS BP Diastolic 103 mmHg 02/12/2023 12:38 Initia l VS Respiratory Rate 18 bpm 02/12/2023 12:38 In itial VS Heart Rate 90 bpm 02/12/2023 12:38 Initial VS O2 % BldC Oximetry 90 % 02/12/2023 12:38 Initial VS Body Temperature 36 degrees 02/12/2023 12:38 In itial VS BP Systolic 144 mmHg 02/12/2023 16:33 Most Re cent VS BP Diastolic 106 mmHg 02/12/2023 16:33 Most R ecent VS Respiratory Rate 20 bpm 02/12/2023 16:[address] Recent VS Heart Rate 82 bpm 02/12/2023 16:33 Most Rec ent VS O2 % BldC Oximetry 96 % 02/12/2023 16:33 Most Recent VS Allergies Allergy Code Allergy Type Reaction Status LISINOPRIL 86447 Drug allergy Anaphylaxis Active ZITHROMAX 19630818 Drug allergy UNKNOWN; Vomiting Activ e Procedures Unknown or Not Available. History of Immunizations Unknown or Not Available. Problems Problem Code Start Date Resolved Date Status Acute diastolic (congestive) heart failure 469204484 Active Diabetes type 2 with nephropathy 884561665 Active Chronic kidney disease stage IV 092255848 Active Anasarca 424825744 Active Results COMPREHENSIVE METABOLIC PANE L (CMP) - Collect Date/Time: 02/12/2023 12:56 Test Name Code Test Result Test Units Test Ref Rang e GLUCOSE 2345-7 346 mg/dL L=70 H=116 BUN 3094-0 47 mg/dL L=6 H=25 CREATININE 2160-0 2.33 mg/dL L=0.67 H=1.17 SODIUM SERUM 2951-2 130 mmol/L L=136 H=145 POTASSIUM SERUM 2823-3 5.0 mmol/L L=3.4 H=5 .2 CHLORIDE SERUM 2075-0 96 mmol/L L=96 H=110 CARBON DIOXIDE (CO2) 2028-9 27 mmol/L L=22 H=34 ANION GAP 73315-4 7.1 mmol/L CALCIUM SERUM 13498-4 9.5 mg/dL L=8.2 H=10. 2 BILIRUBIN TOTAL 1975-2 2.0 mg/dL L=0.0 H=1 .3 ALK. PHOS. 6768-6 313 U/L L=46 H=116 SGOT (AST) 1920-8 60 U/L L=15 H=37 SGPT (ALT) 1742-6 45 U/L L=12 H=78 TOTAL PROTEIN 2885-2 8.4 gm/dL L=6.0 H=8.0 ALBUMIN 1751-7 3.0 gm/dL L=3.4 H=5.0 AGE 82 years eGFR (non-Afr.Amer.) 23911-2 27 mL/min eGFR (Afr-Palauan) 31600-0 33 mL/min LACTIC ACID - Collect Date/T zaheer: 02/12/2023 12:56 Test Name Code Test Result Test Units Test Ref Rang e LACTIC ACID 25948-1 1.7 mmol/L L=0.7 H=2.1 LIPASE* NEW - Collect Date/T zaheer: 02/12/2023 12:56 Test Name Code Test Result Test Units Test Ref Rang e LIPASE. 152 U/L L=16 H=77 CBC W/ DIFFERENTIAL* - Colle ct Date/Time: 02/12/2023 12:56 Test Name Code Test Result Test Units Test Ref Rang e WBC 6690-2 8.89 th/cmm L=5.00 H=10.00 NEUT % 79.8 % L=40.0 H=80.0 LYMPH % 11.7 % L=10.0 H=50.0 MONO % 10847-3 6.9 % L=2.0 H=12.0 EOS % 0.6 % L=0.0 H=8.0 BASO % 0.3 % L=0.0 H=3.0 IG % 2514-8 0.7 % L=0.0 H=1.1 NRBC % 30927-9 0.0 % L=0.0 H=0.0 NEUT abs count 751-8 7.1 th/cmm L=1.6 H=8. 4 LYMPH abs count 731-0 1.0 th/cmm L=1.5 H=4 .0 MONO abs count 742-7 0.6 th/cmm L=0.2 H=1. 0 EOS abs count 711-2 0.1 th/cmm L=0.0 H=0.5 BASO abs count 704-7 0.0 th/cmm L=0.0 H=0. 2 IG abs count 25272-5 0.1 th/cmm L=0.0 H=0.1 NRBC abs count 15931-2 0.0 mil/cmm L=0.0 H=0. 0 RBC 789-8 3.06 mil/cmm L=4.30 H=6.20 HEMOGLOBIN 718-7 10.9 gm/dL L=13.0 H=17.0 HEMATOCRIT 4544-3 34 % L=45 H=52 MCV 787-2 111 fL L=82 H=92 MCH 785-6 35.6 pg L=27.0 H=31.0 MCHC 786-4 32.1 % L=32.0 H=36.0 RDW-SD 788-0 56.8 fL L=39.0 H=49.0 PLATELET COUNT 777-3 240 th/cmm L=150 H=45 0 PT PROTHROMBIN TIME* - Colle ct Date/Time: 02/12/2023 12:56 Test Name Code Test Result Test Units Test Ref Rang e PROTIME 5902-2 11.1 seconds L=9.3 H=11.4 INR 04913-0 1.07 L=2.00 H=3.00 PTT PARTIAL THROMBOPLASTIN T ZAHEER* - Collect Date/Time: 02/12/2023 12:56 Test Name Code Test Result Test Units Test Ref Rang e PTT 43833-6 34.3 seconds L=24.5 H=32.8 EMI COVID GENEXPERT* - Co llect Date/Time: 02/12/2023 12:52 Test Name Code Test Result Test Units Test Ref Rang e COVID 31996-3 NEGATIVE N/A Normal: Negati ve SOURCE= 09056-7 Nasopharyngeal N/A Tier- 14517-0 SYMPTOMS N/A URINALYSIS WITH REFLEX CULT IF POSITIVE* - Collect Date/Time: 02/12/2023 14:05 Test Name Code Test Result Test Units Test Ref Rang e COLLECTION MODE: 63924-5 CLEAN CATCH N/A Color 5778-6 YELLOW N/A yellow Appearance 5767-9 CLEAR N/A clear Glucose urine 77739-5 500 N/A negative mg /dl Bilirubin 5770-3 NEGATIVE N/A negative Ketones 2514-8 NEGATIVE N/A negative mg/dl Spec gravity 5811-5 1.010 N/A 1.003 - 1.03 0 pH urine 2756-5 6.0 N/A 5.0 - 7.0 Protein 25928-6 30 N/A negative mg/dl Urobilinogen 30133-9 0.2 N/A <or= 1 EU/dl Nitrite. 5802-4 NEGATIVE N/A negative Blood 5794-3 TRACE-IN N/A negative Leukocytes. NEGATIVE N/A negative MICROSCOPIC INDICATED N/A WBCs. 19736-9 0-5 N/A 0-5 / hpf RBCs 15128-1 0-5 N/A 0-5 / hpf Epith cells 83191-9 0-5 N/A 0-5 / hpf Cell types squamous N/A Crystals none N/A none Bacteria none N/A none Mucus 8247-9 none N/A none Casts 85698-1 none N/A none /lpf Active Medications Unknown or Not Available. Medications Administered During Visit Medication Dose Units Frequency Route Date/Time of Last Dose SODIUM CHLORIDE 0.9% 500ML 500 ML X1 IV 02/12/2023 13:29 MORPHINE INJ SYRINGE: 2MG/ML 2 MG X1 I PILOT SUBMERSIBLE 02/12/2023 13:29 METHOCARBAMOL TAB: 500MG 500 MG X1 PO 02/12/2023 17:06 Encounters Encounter Diagnosis Diagnosis Code Start Date Strain of muscle, fascia and tendon at neck level, initial encounter [id number] 02/12/2023 Social History Smoking Status Code Start Date End Date Former smoker [id number] 1956 07/20/1970 Patient Decision Aids Unknown or Not Available. Discharge Instructions You were admitted to [facility] on 02/12/2023 12:19 with a principal diagnosis of Strain of muscle, fascia and tendon at neck level, initial encounter You had the following tests done:URINALYSIS WITH REFLEX CULT IF POSITIVE*CBC W/ DIFFERENTIAL*COMPREHENSIVE METABOLIC PANEL (CMP)LACTIC ACIDLIPASE* NEWPT PROTHROMBIN TIME*PTT PARTIAL THROMBOPLASTIN TIME*[facility] COVID GENEXPERT* You were discharged from [facility] on 02/12/2023 17:07 Should you have any questions prior to discharge, please contact a member of your healthcare team. If you have left the hospital and have any questions, please contact your primary care physician. Chief Complaint and Reason For Visit Chief Complaint Date of Onset ONGOING HEADACHE Function Status Unknown or Not Available. Plan of Care Unknown or Not Available. Referral/Transition of Care Unknown or Not Available.
--- OUTSIDE RECORDS SUMMARY | 2023-03-04 21:29 | XMS_ITS | CCD ---
Author Name Unknown Address [address] [place] [address] [phone] Organization Unknown Address [address] [place] [address] [id number] Care Team Providers Care Government Documents Librarian Name Role Phone KAMILAH GONZALEZ Attending Physician [phone] KAMILAH GONZALEZ Rounding (Secondary) Physician [phone] Vital Signs Unknown or Not Available. Allergies Allergy Code Allergy Type Reaction Status LISINOPRIL 34150 Drug allergy Anaphylaxis Active ZITHROMAX 096100 Drug allergy UNKNOWN; Vomiting Activ e Procedures Unknown or Not Available. History of Immunizations Unknown or Not Available. Problems Problem Code Start Date Resolved Date Status Acute diastolic (congestive) heart failure 148388660 Active Diabetes type 2 with nephropathy 222237727 Active Chronic kidney disease stage IV 368158455 Active Anasarca 714783445 Active BPH 688243900 07/13/2021 Resolved GERD 055295192 07/13/2021 Resolved AFIB 62820893 07/13/2021 Resolved Diabetic neuropathy 406511580 07/13/2021 Resol rufina Gout 61111667 07/13/2021 Resolved Hypertension 41353324 07/13/2021 Resolved Results Unknown or Not Available. Active Medications Medication Code Dose Units Frequency Route Modificatio n Start Date/Time Robaxin 500MG Oral Tablet 34844081577 1 TABLET THREE TIMES A DAY ORAL 02/12/2023 16:48 Prescription Detail TAKE 1 TABLET ORAL THREE TIMES A DAY Xarelto 15MG Oral Tablet 7381781 15 MILLIGRAMS EVERY EVENING ORAL 07/16/2021 11:09 Prescription Detail TAKE 15 MILLIGRAMS ORAL EVERY EVENING Medications Administered During Visit Unknown or Not Available. Encounters Encounter Diagnosis Diagnosis Code Start Date Hypertensive heart and chron ic kidney disease with heart failure and stage 1 through stage 4 chronic kidney disease, or unspecified chronic kidney disease I130 01/12/2021 Social History Smoking Status Code Start Date End Date Former smoker [id number] 1956 07/20/1970 Patient Decision Aids Unknown or Not Available. Discharge Instructions You were admitted to [facility] on 01/12/2021 10:22 with a principal diagnosis of Hyp hrt & chr kdny dis w hrt fail and stg 1-4/unsp chr kdny You were discharged from [facility] on 01/12/2021 00:00 Should you have any questions prior [...]
--- OUTSIDE RECORDS SUMMARY | 2023-03-04 21:29 | XMS_ITS | CCD ---
Author Name Unknown Address [address] [place] [address] [id number] Organization Unknown Address [address] [place] [address] [id number] Care Team Providers Care Public Address System Mechanic Name Role Phone ARASH VANN Attending Physician [phone] ARASH VANN Er Physician [phone] ANGELINA Hunt Registered Nurse [phone] Vital Signs Vital Sign Value Unit Date/Time Recent/Initial ? BMI (Body Mass Index) 34.06 kg/m^2 01/31/2023 21: 25 Initial VS Weight Measured 258.16 lbs 01/31/2023 21:25 Ini tial VS Height 73 in 01/31/2023 21:25 Initial VS BSA (Body Surface Area) 2.46 m^2 01/31/2023 2 1:25 Initial VS BP Systolic 159 mmHg 01/31/2023 21:25 Initial VS BP Diastolic 110 mmHg 01/31/2023 21:25 Initia l VS Respiratory Rate 20 bpm 01/31/2023 21:25 In itial VS Heart Rate 98 bpm 01/31/2023 21:25 Initial VS O2 % BldC Oximetry 100 % 01/31/2023 21:25 Initial VS Body Temperature 37.9 degrees 01/31/2023 21:25 In itial VS BP Systolic 125 mmHg 02/01/2023 00:39 Most Re cent VS BP Diastolic 69 mmHg 02/01/2023 00:39 Most R ecent VS Respiratory Rate 20 bpm 02/01/2023 00:[address] Recent VS Heart Rate 110 bpm 02/01/2023 00:39 Most Rec ent VS O2 % BldC Oximetry 99 % 02/01/2023 00:39 Most Recent VS Body Temperature 37.8 degrees 02/01/2023 00:[address] Recent VS Allergies Allergy Code Allergy Type Reaction Status LISINOPRIL 57772 Drug allergy Anaphylaxis Active ZITHROMAX 656213 Drug allergy UNKNOWN; Vomiting Activ e Procedures Unknown or Not Available. History of Immunizations Unknown or Not Available. Problems Problem Code Start Date Resolved Date Status Acute diastolic (congestive) heart failure 236075197 Active Diabetes type 2 with nephropathy 372293931 Active Chronic kidney disease stage IV 915292786 Active Anasarca 956385837 Active Results BNP (PRO-B NATRIURETIC PEPTI DE) - Collect Date/Time: 01/31/2023 20:48 Test Name Code Test Result Test Units Test Ref Rang e NT-proBNP 58224-3 3251.0 pg/mL L=0.0 H=450 C REACTIVE PROTEIN HIGH SENS ITIVITY* - Collect Date/Time: 01/31/2023 20:48 Test Name Code Test Result Test Units Test Ref Rang e CRP-HIGH SENS. 05719-3 146.25 mg/L L=0.00 H=3 .00 CRP-HIGH SENS 26235-7 14.63 mg/dL L=0.00 H=0. 30 COMPREHENSIVE METABOLIC PANE L (CMP) - Collect Date/Time: 01/31/2023 20:48 Test Name Code Test Result Test Units Test Ref Rang e GLUCOSE 2345-7 140 mg/dL L=70 H=116 BUN 3094-0 68 mg/dL L=6 H=25 CREATININE 2160-0 3.20 mg/dL L=0.67 H=1.17 SODIUM SERUM 2951-2 134 mmol/L L=136 H=145 POTASSIUM SERUM 2823-3 4.9 mmol/L L=3.4 H=5 .2 CHLORIDE SERUM 2075-0 98 mmol/L L=96 H=110 CARBON DIOXIDE (CO2) 2028-9 26 mmol/L L=22 H=34 ANION GAP 22863-8 10.5 mmol/L CALCIUM SERUM 74954-2 9.1 mg/dL L=8.2 H=10. 2 BILIRUBIN TOTAL 1975-2 5.6 mg/dL L=0.0 H=1 .3 ALK. PHOS. 6768-6 352 U/L L=46 H=116 SGOT (AST) 1920-8 106 U/L L=15 H=37 SGPT (ALT) 1742-6 70 U/L L=12 H=78 TOTAL PROTEIN 2885-2 8.1 gm/dL L=6.0 H=8.0 ALBUMIN 1751-7 3.2 gm/dL L=3.4 H=5.0 AGE 82 years eGFR (non-Afr.Amer.) 39531-1 19 mL/min eGFR (Afr-[place]) 42774-6 23 mL/min LACTIC ACID - Collect Date/T zaheer: 01/31/2023 20:48 Test Name Code Test Result Test Units Test Ref Rang e LACTIC ACID 84895-4 1.6 mmol/L L=0.7 H=2.1 LIPASE* NEW - Collect Date/T zaheer: 01/31/2023 20:48 Test Name Code Test Result Test Units Test Ref Rang e LIPASE. 83 U/L L=16 H=77 MAGNESIUM SERUM* - Collect D ate/Time: 01/31/2023 20:48 Test Name Code Test Result Test Units Test Ref Rang e MAGNESIUM 08021-4 2.2 mg/dL L=1.8 H=2.4 TROPONIN HIGH SENSITIVITY* - Collect Date/Time: 01/31/2023 20:48 Test Name Code Test Result Test Units Test Ref Rang e TROPONIN HS 20.1 pg/mL L=0.0 H=60.4 Specimen seq. RANDOM N/A CBC W/ DIFFERENTIAL* - Colle ct Date/Time: 01/31/2023 20:48 Test Name Code Test Result Test Units Test Ref Rang e WBC 6690-2 8.88 th/cmm L=5.00 H=10.00 NEUT % 82.8 % L=40.0 H=80.0 LYMPH % 8.9 % L=10.0 H=50.0 MONO % 56919-4 7.2 % L=2.0 H=12.0 EOS % 0.3 % L=0.0 H=8.0 BASO % 0.2 % L=0.0 H=3.0 IG % 2514-8 0.6 % L=0.0 H=1.1 NRBC % 54817-7 0.0 % L=0.0 H=0.0 NEUT abs count 751-8 7.4 th/cmm L=1.6 H=8. 4 LYMPH abs count 731-0 0.8 th/cmm L=1.5 H=4 .0 MONO abs count 742-7 0.6 th/cmm L=0.2 H=1. 0 EOS abs count 711-2 0.0 th/cmm L=0.0 H=0.5 BASO abs count 704-7 0.0 th/cmm L=0.0 H=0. 2 IG abs count 70415-6 0.1 th/cmm L=0.0 H=0.1 NRBC abs count 68082-0 0.0 mil/cmm L=0.0 H=0. 0 RBC 789-8 3.01 mil/cmm L=4.30 H=6.20 HEMOGLOBIN 718-7 11.0 gm/dL L=13.0 H=17.0 HEMATOCRIT 4544-3 33 % L=45 H=52 MCV 787-2 110 fL L=82 H=92 MCH 785-6 36.5 pg L=27.0 H=31.0 MCHC 786-4 33.3 % L=32.0 H=36.0 RDW-SD 788-0 59.6 fL L=39.0 H=49.0 PLATELET COUNT 777-3 187 th/cmm L=150 H=45 0 EMI COVID FLU RSV GENEXPE RT - Collect Date/Time: 01/31/2023 21:20 Test Name Code Test Result Test Units Test Ref Rang e COVID 14569-2 NEGATIVE N/A Normal: Negati ve INFLUENZA A DNA 77684-4 NEGATIVE N/A Normal: N egative INFLUENZA B DNA 09094-9 NEGATIVE N/A Normal: N egative RSV DNA 15267-0 NEGATIVE N/A Normal: Negati ve URINALYSIS WITH REFLEX CULT IF POSITIVE* - Collect Date/Time: 01/31/2023 21:35 Test Name Code Test Result Test Units Test Ref Rang e COLLECTION MODE: 49623-9 CLEAN CATCH N/A Color 5778-6 YELLOW N/A yellow Appearance 5767-9 CLEAR N/A clear Glucose urine 08653-0 NEGATIVE N/A negative mg /dl Bilirubin 5770-3 SMALL N/A negative Ketones 2514-8 NEGATIVE N/A negative mg/dl Spec gravity 5811-5 1.015 N/A 1.003 - 1.03 0 pH urine 2756-5 5.5 N/A 5.0 - 7.0 Protein 43503-3 100 N/A negative mg/dl Urobilinogen 02724-0 2.0 N/A <or= 1 EU/dl Nitrite. 5802-4 NEGATIVE N/A negative Blood 5794-3 MODERATE N/A negative Leukocytes. NEGATIVE N/A negative MICROSCOPIC INDICATED N/A WBCs. 49826-0 none N/A 0-5 / hpf RBCs 44702-9 0-5 N/A 0-5 / hpf Epith cells 68774-2 0-5 N/A 0-5 / hpf Cell types squamous N/A Crystals none N/A none Bacteria none N/A none Mucus 8247-9 present N/A none Casts 90034-7 none N/A none /lpf Active Medications Unknown or Not Available. Medications Administered During Visit Medication Dose Units Frequency Route Date/Time of Last Dose ACETAMINOPHEN INJ IVPB: 1000MG/100ML 1000 MG X1 IVPB 01/31/2023 22:2 3 SODIUM CHLORIDE 0.9% 500ML 500 ML X1 IV 01/31/2023 22:23 PIPERACILLIN/TAZO IVPB: 3.375GM/100ML 3.375 GM X1 IVPB 02/01/2023 00: 19 Encounters Encounter Diagnosis Diagnosis Code Start Date Calculus of bile duct withou t cholangitis or cholecystitis without obstruction K8050 01/31/2023 Social History Smoking Status Code Start Date End Date Former smoker [id number] 1956 07/20/1970 Patient Decision Aids Unknown or Not Available. Discharge Instructions You were admitted to [facility] on 01/31/2023 20:03 with a principal diagnosis of Calculus of bile duct without cholangitis or cholecystitis without obstruction You had the following tests done:URINALYSIS WITH REFLEX CULT IF POSITIVE*[facility] COVID FLU RSV GENEXPERTBNP (PRO-B NATRIURETIC PEPTIDE)C REACTIVE PROTEIN HIGH SENSITIVITY*CBC W/ DIFFERENTIAL*COMPREHENSIVE METABOLIC PANEL (CMP)LACTIC ACIDLIPASE* NEWMAGNESIUM SERUM*TROPONIN HIGH SENSITIVITY* You were discharged from [facility] on 02/01/2023 00:46 Should you have any questions prior to discharge, please contact a member of your healthcare team. If you have left the hospital and have any questions, please contact your primary care physician. Chief Complaint and Reason For Visit Chief Complaint Date of Onset ABDOMINAL PAIN 01/31/2023 Function Status Unknown or Not Available. Plan of Care Unknown or Not Available. Referral/Transition of Care Unknown or Not Available.
--- OUTSIDE RECORDS SUMMARY | 2023-03-04 21:29 | XMS_ITS | CCD ---
Author Name Unknown Address [address] [place] [address] [id number] Organization Unknown Address [address] [place] [address] [phone] Care Team Providers Care Floatlight Loading Supervisor Name Role Phone GHASSAN ANSARI Attending Physician [phone] Vital Signs Unknown or Not Available. Allergies Allergy Code Allergy Type Reaction Status LISINOPRIL 79734 Drug allergy Anaphylaxis Active ZITHROMAX 574127 Drug allergy UNKNOWN; Vomiting Activ e Procedures Unknown or Not Available. History of Immunizations Unknown or Not Available. Problems Problem Code Start Date Resolved Date Status Acute diastolic (congestive) heart failure 100041636 Active Diabetes type 2 with nephropathy 108898934 Active Chronic kidney disease stage IV 461402508 Active Anasarca 160136539 Active BPH 998815158 07/13/2021 Resolved GERD 108886995 07/13/2021 Resolved AFIB 44535388 07/13/2021 Resolved Diabetic neuropathy 942500506 07/13/2021 Resol rufina Gout 63271165 07/13/2021 Resolved Hypertension 44665426 07/13/2021 Resolved Results Unknown or Not Available. Active Medications Medication Code Dose Units Frequency Route Modificatio n Start Date/Time Robaxin 500MG Oral Tablet 78812572108 1 TABLET THREE TIMES A DAY ORAL 02/12/2023 16:48 Prescription Detail TAKE 1 TABLET ORAL THREE TIMES A DAY Xarelto 15MG Oral Tablet 9341516 15 MILLIGRAMS EVERY EVENING ORAL 07/16/2021 11:09 Prescription Detail TAKE 15 MILLIGRAMS ORAL EVERY EVENING Medications Administered During Visit Unknown or Not Available. Encounters Encounter Diagnosis Diagnosis Code Start Date Lung field abnormal [id number] 01/21/2021 Social History Smoking Status Code Start Date End Date Former smoker [id number] [birth year] Patient Decision Aids Unknown or Not Available. Discharge Instructions You were admitted to [facility] on 01/21/2021 20:06 with a principal diagnosis of Other nonspecific abnormal finding of lung field You were discharged from [facility] on 01/21/2021 20:06 Should you have any questions prior to [...]
--- OUTSIDE RECORDS SUMMARY | 2023-03-04 21:30 | XMS_ITS | CCD ---
Author Name Unknown Address [address] [place] [address] [id number] Organization Unknown Address [address] [place] [address] [phone] Care Team Providers Care Senior C Web Developer Name Role Phone GHASSAN ANSARI Attending Physician [phone] Vital Signs Unknown or Not Available. Allergies Allergy Code Allergy Type Reaction Status LISINOPRIL 97634 Drug allergy Anaphylaxis Active ZITHROMAX 790173 Drug allergy UNKNOWN; Vomiting Activ e Procedures Unknown or Not Available. History of Immunizations Unknown or Not Available. Problems Problem Code Start Date Resolved Date Status Acute diastolic (congestive) heart failure 858751755 Active Diabetes type 2 with nephropathy 053795299 Active Chronic kidney disease stage IV 618188907 Active Anasarca 927252626 Active Results Unknown or Not Available. Active Medications Medication Code Dose Units Frequency Route Modificatio n Start Date/Time Robaxin 500MG Oral Tablet 38204797652 1 TABLET THREE TIMES A DAY ORAL 02/12/2023 16:48 Prescription Detail TAKE 1 TABLET ORAL THREE TIMES A DAY Xarelto 15MG Oral Tablet 2629864 15 MILLIGRAMS EVERY EVENING ORAL 07/16/2021 11:09 Prescription Detail TAKE 15 MILLIGRAMS ORAL EVERY EVENING Medications Administered During Visit Unknown or Not Available. Encounters Unknown or Not Available. Social History Smoking Status Code Start Date End Date Former smoker [id number] [birth year] Patient Decision Aids Unknown or Not Available. Discharge Instructions You were admitted to [facility] on 02/17/2023 12:48 You were discharged from [facility] on 02/17/2023 12:48 Should you have any questions prior to discharge, please contact a member of your healthcare team. If you have left the hospital and have any questions, please contact your primary care physician. Chief Complaint and Reason For Visit Chief Complaint Date of Onset CHRONIC KIDNEY DISEASE Function Status Unknown or Not Available. Plan of Care Unknown or Not Available. Referral/Transition of Care Unknown or Not Available.
--- OUTSIDE RECORDS SUMMARY | 2023-03-04 21:31 | XMS_ITS | CCD ---
Author Name Unknown Address [address] [place] [address] [phone] Organization Unknown Address [address] [place] [address] [phone] Care Team Providers Care Speeder Hand Name Role Phone BLADIMIR VANN MD Attending Physician [phone] Vital Signs Unknown or Not Available. Allergies Allergy Code Allergy Type Reaction Status LISINOPRIL 03094 Drug allergy Anaphylaxis Active ZITHROMAX 796460 Drug allergy UNKNOWN; Vomiting Activ e Procedures Unknown or Not Available. History of Immunizations Unknown or Not Available. Problems Problem Code Start Date Resolved Date Status Acute diastolic (congestive) heart failure 997646625 Active Diabetes type 2 with nephropathy 157913281 Active Chronic kidney disease stage IV 788850228 Active Anasarca 235987053 Active BPH 551907287 07/13/2021 Resolved GERD 908238768 07/13/2021 Resolved AFIB 78128923 07/13/2021 Resolved Diabetic neuropathy 339917547 07/13/2021 Resol rufina Gout 22165117 07/13/2021 Resolved Hypertension 17761074 07/13/2021 Resolved Results EMI [facility] - [facility] ct Date/Time: 11/03/2020 11:00 Test Name Code Test Result Test Units Test Ref Rang e SOURCE= Anterior nasal N/A Tier- SYMPTOMS N/A SARS COV2 RNA: 77780-7 POSITIVE N/A REFERENCE RANGE: NEGAT Active Medications Medication Code Dose Units Frequency Route Modificatio n Start Date/Time Robaxin 500MG Oral Tablet [id number] 1 TABLET THREE TIMES A DAY ORAL 02/12/2023 16:48 Prescription Detail TAKE 1 TABLET ORAL THREE TIMES A DAY Xarelto 15MG Oral Tablet 3061728 15 MILLIGRAMS EVERY EVENING ORAL 07/16/2021 11:09 Prescription Detail TAKE 15 MILLIGRAMS ORAL EVERY EVENING Medications Administered During Visit Unknown or Not Available. Encounters Encounter Diagnosis Diagnosis Code Start Date COVID-19 U071 11/03/2020 Social History Smoking Status Code Start Date End Date Former smoker [id number] [birth year] Patient Decision Aids Unknown or Not Available. Discharge Instructions You were admitted to [facility] on 11/03/2020 14:03 with a principal diagnosis of COVID-19 You had the following tests done:[facility] You were discharged from [facility] on 11/03/2020 14:03 Should you have any questions prior to [...]
[2023-03-04 21:34] LABS: Anion Gap 8.5 mmol/L (3-11); BUN 53 mg/dL (7-18); CO2 27.5 mmol/L (21.0-32.0); CREATININE 2.5 mg/dL (0.70-1.30); Calcium 10.3 mg/dL (8.5-10.1); Chloride 102 mmol/L (98-107); Estimated GFR 24.87 (mL/min/1.73m2); Glucose 167 mg/dL (74-106); Potassium 4.8 mmol/L (3.5-5.1); Sodium 138 mmol/L (136-145)
== END 2023-03-04 21:25 | disposition home or self-care (01) ==
LOC: NCHCN 21:24
PROVIDERS: PCP Internal Medicine; Visit Provider Internal Medicine
DX: N18.9 Chronic kidney disease, unspecified (principal)
CPT/HCPCS: 80048

== ENCOUNTER 2023-03-08 10:30 | Outpatient (REF) | payer MEDICARE, BC, SELFPAY ==
--- OUTSIDE RECORDS SUMMARY | 2023-03-08 10:32 | XMS_ITS | CCD ---
Author Name Unknown Address [address] [place] [address] [id number] Organization Unknown Address [address] [place] [address] [phone] Care Team Providers Care Financial Systems Director Name Role Phone KAMILAH GONZALEZ Attending Physician [phone] KAMILAH GONZALEZ Rounding (Secondary) Physician [phone] Vital Signs Unknown or Not Available. Allergies Allergy Code Allergy Type Reaction Status LISINOPRIL 48091 Drug allergy Anaphylaxis Active ZITHROMAX 819851 Drug allergy UNKNOWN; Vomiting Activ e Procedures Unknown or Not Available. History of Immunizations Unknown or Not Available. Problems Problem Code Start Date Resolved Date Status Acute diastolic (congestive) heart failure 541220282 Active Diabetes type 2 with nephropathy 456173993 Active Chronic kidney disease stage IV 872848343 Active Anasarca 183529304 Active BPH 156835953 07/13/2021 Resolved GERD 715566907 07/13/2021 Resolved AFIB 35253345 07/13/2021 Resolved Melanoma of facial skin 17094115 12/13/2019 R esolved Diabetic neuropathy 826465813 07/13/2021 Resol rufina Gout 24653195 07/13/2021 Resolved CHF 85078807 12/13/2019 Resolved Hypertension 48449999 07/13/2021 Resolved Diabetes 2 96712184 12/13/2019 Resolved Results Unknown or Not Available. Active Medications Medication Code Dose Units Frequency Route Modificatio n Start Date/Time Robaxin 500MG Oral Tablet 41948885384 1 TABLET THREE TIMES A DAY ORAL 02/12/2023 16:48 Prescription Detail TAKE 1 TABLET ORAL THREE TIMES A DAY Xarelto 15MG Oral Tablet [id number] 15 MILLIGRAMS EVERY EVENING ORAL 07/16/2021 11:09 Prescription Detail TAKE 15 MILLIGRAMS ORAL EVERY EVENING Medications Administered During Visit Unknown or Not Available. Encounters Unknown or Not Available. Social History Smoking Status Code Start Date End Date Former smoker [id number] [birth year] Patient Decision Aids Unknown or Not Available. Discharge Instructions You were admitted to [facility] You were discharged from [facility] Should you have any questions [...]
--- OUTSIDE RECORDS SUMMARY | 2023-03-08 10:32 | XMS_ITS | CCD ---
Author Name Unknown Address [address] [place] [address] [phone] Organization Unknown Address [address] [place] [address] [phone] Care Team Providers Care Heavy Cleaner Name Role Phone MARANDA MARCUS Attending Physician [phone] MARANDA MARCUS Rounding (Secondary) Physician [phone] Vital Signs Unknown or Not Available. Allergies Allergy Code Allergy Type Reaction Status LISINOPRIL 87209 Drug allergy Anaphylaxis Active ZITHROMAX 656797 Drug allergy UNKNOWN; Vomiting Activ e Procedures Unknown or Not Available. History of Immunizations Unknown or Not Available. Problems Problem Code Start Date Resolved Date Status Acute diastolic (congestive) heart failure 465362859 Active Diabetes type 2 with nephropathy 730140603 Active Chronic kidney disease stage IV 191940415 Active Anasarca 480287990 Active Results Unknown or Not Available. Active Medications Medication Code Dose Units Frequency Route Modificatio n Start Date/Time Robaxin 500MG Oral Tablet 50930597837 1 TABLET THREE TIMES A DAY ORAL 02/12/2023 16:48 Prescription Detail TAKE 1 TABLET ORAL THREE TIMES A DAY Xarelto 15MG Oral Tablet 0412459 15 MILLIGRAMS EVERY EVENING ORAL 07/16/2021 11:09 Prescription Detail TAKE 15 MILLIGRAMS ORAL EVERY EVENING Medications Administered During Visit Unknown or Not Available. Encounters Encounter Diagnosis Diagnosis Code Start Date Other specific arthropathies , not elsewhere classified, right shoulder [id number] 06/29/2022 Social History Smoking Status Code Start Date End Date Former smoker [id number] 1956 07[birth year]20/1970 Patient Decision Aids Unknown or Not Available. Discharge Instructions You were admitted to [facility] on 06/29/2022 14:22 with a principal diagnosis of Other specific arthropathies, not elsewhere classified, right shoulder You were discharged from [facility] on 06/29/2022 00:00 Should you have any [...]
--- OUTSIDE RECORDS SUMMARY | 2023-03-08 10:32 | XMS_ITS | CCD ---
Author Name Unknown Address [address] [place] [address] [phone] Organization Unknown Address [address] [place] [address] [phone] Care Team Providers Care Medical Economics Consultant Name Role Phone COTY GHASSAN R Attending Physician [phone] Vital Signs Unknown or Not Available. Allergies Allergy Code Allergy Type Reaction Status LISINOPRIL 00528 Drug allergy Anaphylaxis Active ZITHROMAX 323371 Drug allergy UNKNOWN; Vomiting Activ e Procedures Unknown or Not Available. History of Immunizations Unknown or Not Available. Problems Problem Code Start Date Resolved Date Status Acute diastolic (congestive) heart failure 166001486 Active Diabetes type 2 with nephropathy 242167815 Active Chronic kidney disease stage IV 474979079 Active Anasarca 230146083 Active Results Unknown or Not Available. Active Medications Medication Code Dose Units Frequency Route Modificatio n Start Date/Time Robaxin 500MG Oral Tablet 42995172553 1 TABLET THREE TIMES A DAY ORAL 02/12/2023 16:48 Prescription Detail TAKE 1 TABLET ORAL THREE TIMES A DAY Xarelto 15MG Oral Tablet [id number] 15 MILLIGRAMS EVERY EVENING ORAL 07/16/2021 11:09 Prescription Detail TAKE 15 MILLIGRAMS ORAL EVERY EVENING Medications Administered During Visit Unknown or Not Available. Encounters Encounter Diagnosis Diagnosis Code Start Date Complete rotator cuff tear o r rupture of right shoulder, not specified as traumatic [id number] 03/30/2022 Social History Smoking Status Code Start Date End Date Former smoker [id number] 1956 07[birth year]20[birth year]1969 Patient Decision Aids Unknown or Not Available. Discharge Instructions You were admitted to [facility] on 03/30/2022 09:40 with a principal diagnosis of Complete rotator cuff tear or rupture of right shoulder, not specified as traumatic You were discharged from [facility] on 03/30/2022 09:40 Should you have [...]
--- OUTSIDE RECORDS SUMMARY | 2023-03-08 10:33 | XMS_ITS | CCD ---
Author Name Unknown Address [address] [place] [address] [id number] Organization Unknown Address [address] [place] [address] [phone] Care Team Providers Care Sports Medicine Physician Name Role Phone SAVANNA TAVERAS Attending Physician [phone] Vital Signs Unknown or Not Available. Allergies Allergy Code Allergy Type Reaction Status LISINOPRIL 25060 Drug allergy Anaphylaxis Active ZITHROMAX 698366 Drug allergy UNKNOWN; Vomiting Activ e Procedures Unknown or Not Available. History of Immunizations Unknown or Not Available. Problems Problem Code Start Date Resolved Date Status Acute diastolic (congestive) heart failure 375582966 Active Diabetes type 2 with nephropathy 263762592 Active Chronic kidney disease stage IV 452839778 Active Anasarca 763826154 Active BPH 390246754 07/13/2021 Resolved GERD 457055676 07/13/2021 Resolved AFIB 12727511 07/13/2021 Resolved Diabetic neuropathy 991415092 07/13/2021 Resol rufina Gout 97367685 07/13/2021 Resolved Hypertension 94868274 07/13/2021 Resolved Results Unknown or Not Available. Active Medications Medication Code Dose Units Frequency Route Modificatio n Start Date/Time Robaxin 500MG Oral Tablet 91600334916 1 TABLET THREE TIMES A DAY ORAL 02/12/2023 16:48 Prescription Detail TAKE 1 TABLET ORAL THREE TIMES A DAY Xarelto 15MG Oral Tablet [id number] 15 MILLIGRAMS EVERY EVENING ORAL 07/16/2021 11:09 [...] Code Start Date End Date Former smoker [id number] 1956 07[birth year]20/1970 Patient Decision Aids Unknown or Not Available. Discharge Instructions You were admitted to [facility] on 07/13/2021 01:33 with a principal diagnosis of Hyp hrt & chr kdny dis w hrt fail and stg 1-4/unsp chr kdny You were discharged from [facility] on 07/16/2021 01:34 Should you have [...]
--- OUTSIDE RECORDS SUMMARY | 2023-03-08 10:33 | XMS_ITS | CCD ---
Author Name Unknown Address [address] [place] [address] [phone] Organization Unknown Address [address] [place] [address] [phone] Care Team Providers Care Supervisor Intelligence Analyst Name Role Phone ALIYAH DUMONT Attending Physician [phone] Vital Signs Unknown or Not Available. Allergies Allergy Code Allergy Type Reaction Status LISINOPRIL 62900 Drug allergy Anaphylaxis Active ZITHROMAX 437290 Drug allergy UNKNOWN; Vomiting Activ e Procedures Procedure Code Procedure Type Date Neuroplasty &/Or Transpositi on; Median Nerve At Carpal Tunnel 58500 CPT 04/10/2021 History of Immunizations Unknown or Not Available. Problems Problem Code Start Date Resolved Date Status Acute diastolic (congestive) heart failure 123212682 Active Diabetes type 2 with nephropathy 665976122 Active Chronic kidney disease stage IV 746341130 Active Anasarca 592780317 Active BPH 592495544 07/13/2021 Resolved GERD 271961485 07/13/2021 Resolved AFIB 98695994 07/13/2021 Resolved Diabetic neuropathy 824017319 07/13/2021 Resol rufina Gout 84079655 07/13/2021 Resolved Hypertension 42754970 07/13/2021 Resolved Results Unknown or Not Available. [...] Code Start Date End Date Former smoker [id number] [birth year] Patient Decision Aids Unknown or [...]
--- OUTSIDE RECORDS SUMMARY | 2023-03-08 10:33 | XMS_ITS | CCD ---
Author Name Unknown Address [address] [place] [address] [phone] Organization Unknown Address [address] [place] [address] [phone] Care Team Providers Care Public Policy Professor Name Role Phone KAMILAH GONZALEZ Attending Physician [phone] KAMILAH GONZALEZ Rounding (Secondary) Physician [phone] Vital Signs Unknown or Not Available. Allergies Allergy Code Allergy Type Reaction Status LISINOPRIL 16567 Drug allergy Anaphylaxis Active ZITHROMAX 169674 Drug allergy UNKNOWN; Vomiting Activ e Procedures Unknown or Not Available. History of Immunizations Unknown or Not Available. Problems Problem Code Start Date Resolved Date Status Acute diastolic (congestive) heart failure 259576563 Active Diabetes type 2 with nephropathy 624910256 Active Chronic kidney disease stage IV 120178055 Active Anasarca 669607117 Active Results Unknown or Not Available. Active Medications Medication Code Dose Units Frequency Route Modificatio n Start Date/Time Robaxin 500MG Oral Tablet 03025295814 1 TABLET THREE TIMES A DAY ORAL 02/12/2023 16:48 Prescription Detail TAKE 1 TABLET ORAL THREE TIMES A DAY Xarelto 15MG Oral Tablet 4967442 15 MILLIGRAMS EVERY EVENING ORAL 07/16/2021 11:09 Prescription Detail TAKE 15 MILLIGRAMS ORAL EVERY EVENING Medications Administered During Visit Unknown or Not Available. Encounters Encounter Diagnosis Diagnosis Code Start Date Unspecified atrial fibrillation I4891 08/28/2021 Social History Smoking Status Code Start Date End Date Former smoker [id number] 1956 07/20/1970 Patient Decision Aids Unknown or Not Available. Discharge Instructions You were admitted to [facility] on 08/28/2021 07:19 with a principal diagnosis of Unspecified atrial fibrillation You were discharged from [facility] on 08/28/2021 00:00 Should you have [...]
--- OUTSIDE RECORDS SUMMARY | 2023-03-08 10:33 | XMS_ITS | CCD ---
Author Name Unknown Address [address] [place] [address] [id number] Organization Unknown Address [address] [place] [address] [phone] Care Team Providers Care Barrel Builder Name Role Phone CALLY FUENTES Attending Physician [phone] CALLY FUENTES Rounding (Secondary) Physician [phone] Vital Signs Unknown or Not Available. Allergies Allergy Code Allergy Type Reaction Status LISINOPRIL 97286 Drug allergy Anaphylaxis Active ZITHROMAX 421699 Drug allergy UNKNOWN; Vomiting Activ e Procedures Unknown or Not Available. History of Immunizations Unknown or Not Available. Problems Problem Code Start Date Resolved Date Status Acute diastolic (congestive) heart failure 691113996 Active Diabetes type 2 with nephropathy 660658173 Active Chronic kidney disease stage IV 845496396 Active Anasarca 829919088 Active BPH 799051925 07/13/2021 Resolved GERD 009959945 07/13/2021 Resolved AFIB 75545431 07/13/2021 Resolved Diabetic neuropathy 261544113 07/13/2021 Resol rufina Gout 91723776 07/13/2021 Resolved Hypertension 11351262 07/13/2021 Resolved Results Unknown or Not Available. Active Medications Medication Code Dose Units Frequency Route Modificatio n Start Date/Time Robaxin 500MG Oral Tablet 06820142087 1 TABLET THREE TIMES A DAY ORAL 02/12/2023 16:48 Prescription Detail TAKE 1 TABLET ORAL THREE TIMES A DAY Xarelto 15MG Oral Tablet 6186947 15 MILLIGRAMS EVERY EVENING ORAL 07/16/2021 11:09 Prescription Detail TAKE 15 MILLIGRAMS ORAL EVERY EVENING Medications Administered During Visit Unknown or Not Available. Encounters Encounter Diagnosis Diagnosis Code Start Date Removal of suture 15441442 04/22/2021 Social History Smoking Status Code Start Date End Date Former smoker [id number] 1956 07/20/1970 Patient Decision Aids Unknown or Not Available. Discharge Instructions You were admitted to [facility] on 04/22/2021 11:31 with a principal diagnosis of Encounter for removal of sutures You were discharged from [facility] on 04/22/2021 00:00 Should you have [...]
--- OUTSIDE RECORDS SUMMARY | 2023-03-08 10:33 | XMS_ITS | CCD ---
Author Name Unknown Address [address] [place] [address] [phone] Organization Unknown Address [address] [place] [address] [phone] Care Team Providers Care Paper Baling Machine Operator Name Role Phone RADHASUNITA ENNIS Attending Physician [phone] Vital Signs Unknown or Not Available. Allergies Allergy Code Allergy Type Reaction Status LISINOPRIL 73536 Drug allergy Anaphylaxis Active ZITHROMAX 473742 Drug allergy UNKNOWN; Vomiting Activ e Procedures Unknown or Not Available. History of Immunizations Unknown or Not Available. Problems Problem Code Start Date Resolved Date Status Acute diastolic (congestive) heart failure 913361260 Active Diabetes type 2 with nephropathy 578623406 Active Chronic kidney disease stage IV 942090273 Active Anasarca 306150630 Active BPH 373858811 07/13/2021 Resolved GERD 947689133 07/13/2021 Resolved AFIB 10656384 07/13/2021 Resolved Diabetic neuropathy 581089893 07/13/2021 Resol rufina Gout 95431957 07/13/2021 Resolved Hypertension 54809779 07/13/2021 Resolved Results Unknown or Not Available. Active Medications Medication Code Dose Units Frequency Route Modificatio n Start Date/Time Robaxin 500MG Oral Tablet 44924870748 1 TABLET THREE TIMES A DAY ORAL 02/12/2023 16:48 Prescription Detail TAKE 1 TABLET ORAL THREE TIMES A DAY Xarelto 15MG Oral Tablet 8483581 15 MILLIGRAMS EVERY EVENING ORAL 07/16/2021 11:09 Prescription Detail TAKE 15 MILLIGRAMS ORAL EVERY EVENING Medications Administered During Visit Unknown or Not Available. Encounters Encounter Diagnosis Diagnosis Code Start Date Anemia, unspecified D649 07/13/2021 Social History Unknown or Not Available. Patient Decision Aids Unknown or Not Available. Discharge Instructions You were admitted to [facility] on 07/13/2021 11:41 with a principal diagnosis of Anemia, unspecified You were discharged from [facility] on 07/13/2021 15:13 Should you have any [...]
--- OUTSIDE RECORDS SUMMARY | 2023-03-08 10:33 | XMS_ITS | CCD ---
Author Name Unknown Address [address] [place] [address] [phone] Organization Unknown Address [address] [place] [address] [phone] Care Team Providers Care Poultry Offal Icer Name Role Phone SUSY JAY Attending Physician [phone] SUSY JAY Rounding (Secondary) Physician [phone] Vital Signs Unknown or Not Available. Allergies Allergy Code Allergy Type Reaction Status LISINOPRIL 59262 Drug allergy Anaphylaxis Active ZITHROMAX 137411 Drug allergy UNKNOWN; Vomiting Activ e Procedures Unknown or Not Available. History of Immunizations Unknown or Not Available. Problems Problem Code Start Date Resolved Date Status Acute diastolic (congestive) heart failure 043746471 Active Diabetes type 2 with nephropathy 333442366 Active Chronic kidney disease stage IV 274563100 Active Anasarca 761955121 Active Results Unknown or Not Available. Active Medications Medication Code Dose Units Frequency Route Modificatio n Start Date/Time Robaxin 500MG Oral Tablet [id number] 1 TABLET THREE TIMES A DAY ORAL 02/12/2023 16:48 Prescription Detail TAKE 1 TABLET ORAL THREE TIMES A DAY Xarelto 15MG Oral Tablet 2713505 15 MILLIGRAMS EVERY EVENING ORAL 07/16/2021 11:09 Prescription Detail TAKE 15 MILLIGRAMS ORAL EVERY EVENING Medications Administered During Visit Unknown or Not Available. Encounters Encounter Diagnosis Diagnosis Code Start Date Idiopathic osteoarthritis [id number] 2021 Social History Smoking Status Code Start Date End Date Former smoker [id number] 1956 07/20/1970 Patient Decision Aids Unknown or Not Available. Discharge Instructions You were admitted to [facility] on 10/29/2021 08:34 with a principal diagnosis of Unilateral primary osteoarthritis, left knee You were discharged from [facility] on 10/29/2021 00:00 Should you have [...]
--- OUTSIDE RECORDS SUMMARY | 2023-03-08 10:34 | XMS_ITS | CCD ---
Author Name Unknown Address [address] [place] [address] [phone] Organization Unknown Address [address] [place] [address] [phone] Care Team Providers Care Early Childhood Lead Teacher Name Role Phone JC SOTO Attending Physician [phone] JC SOTO Rounding (Secondary) Physician 3 [phone] Vital Signs Unknown or Not Available. Allergies Allergy Code Allergy Type Reaction Status LISINOPRIL 08842 Drug allergy Anaphylaxis Active ZITHROMAX 952799 Drug allergy UNKNOWN; Vomiting Activ e Procedures Unknown or Not Available. History of Immunizations Unknown or Not Available. Problems Problem Code Start Date Resolved Date Status Acute diastolic (congestive) heart failure 434393083 Active Diabetes type 2 with nephropathy 994427569 Active Chronic kidney disease stage IV 577521190 Active Anasarca 293073826 Active BPH 865416294 07/13/2021 Resolved GERD 635326902 07/13/2021 Resolved AFIB 65213295 07/13/2021 Resolved Diabetic neuropathy 382662426 07/13/2021 Resol rufina Gout 56902337 07/13/2021 Resolved Hypertension 58504217 07/13/2021 Resolved Results Unknown or Not Available. Active Medications Medication Code Dose Units Frequency Route Modificatio n Start Date/Time Robaxin 500MG Oral Tablet 18123553783 1 TABLET THREE TIMES A DAY ORAL 02/12/2023 16:48 Prescription Detail TAKE 1 TABLET ORAL THREE TIMES A DAY Xarelto 15MG Oral Tablet 3766380 15 MILLIGRAMS EVERY EVENING ORAL 07/16/2021 11:09 Prescription Detail TAKE 15 MILLIGRAMS ORAL EVERY EVENING Medications Administered During Visit Unknown or Not Available. Encounters Encounter Diagnosis Diagnosis Code Start Date Idiopathic osteoarthritis [id number] 2020 Social History Smoking Status Code Start Date End Date Former smoker [id number] [birth year] Patient Decision Aids Unknown or Not Available. Discharge Instructions You were admitted to [facility] on 02/12/2021 13:09 with a principal diagnosis of Unilateral primary osteoarthritis, left knee You were discharged from [facility] on 02/12/2021 00:00 Should you [...]
--- OUTSIDE RECORDS SUMMARY | 2023-03-08 10:34 | XMS_ITS | CCD ---
Author Name Unknown Address [address] [place] [address] [phone] Organization Unknown Address [address] [place] [address] [phone] Care Team Providers Care Heating Operators Engineer Name Role Phone JC SOTO Attending Physician [phone] JC SOTO Rounding (Secondary) Physician 3 [phone] Vital Signs Unknown or Not Available. Allergies Allergy Code Allergy Type Reaction Status LISINOPRIL 51854 Drug allergy Anaphylaxis Active ZITHROMAX 300234 Drug allergy UNKNOWN; Vomiting Activ e Procedures Unknown or Not Available. History of Immunizations Unknown or Not Available. Problems Problem Code Start Date Resolved Date Status Acute diastolic (congestive) heart failure 739254775 Active Diabetes type 2 with nephropathy 505476732 Active Chronic kidney disease stage IV 748135314 Active Anasarca 891279485 Active BPH 419764947 07/13/2021 Resolved GERD 108109465 07/13/2021 Resolved AFIB 31825719 07/13/2021 Resolved Diabetic neuropathy 363098949 07/13/2021 Resol rufina Gout 79222808 07/13/2021 Resolved Hypertension 80503540 07/13/2021 Resolved Results Unknown or Not Available. Active Medications Medication Code Dose Units Frequency Route Modificatio n Start Date/Time Robaxin 500MG Oral Tablet 64710762753 1 TABLET THREE TIMES A DAY ORAL 02/12/2023 16:48 Prescription Detail TAKE 1 TABLET ORAL THREE TIMES A DAY Xarelto 15MG Oral Tablet 5828975 15 MILLIGRAMS EVERY EVENING ORAL 07/16/2021 11:09 Prescription Detail TAKE 15 MILLIGRAMS ORAL EVERY EVENING Medications Administered During Visit Unknown or Not Available. Encounters Encounter Diagnosis Diagnosis Code Start Date Idiopathic osteoarthritis [id number] 2021 Social History Smoking Status Code Start Date End Date Former smoker [id number] [birth year] Patient Decision Aids Unknown or Not Available. Discharge Instructions You were admitted to [facility] on 04/15/2021 09:33 with a principal diagnosis of Unilateral primary osteoarthritis, left knee You were discharged from [facility] on 04/15/2021 00:00 Should you [...]
--- OUTSIDE RECORDS SUMMARY | 2023-03-08 10:34 | XMS_ITS | CCD ---
Author Name Unknown Address [address] [place] [address] [phone] Organization Unknown Address [address] [place] [address] [phone] Care Team Providers Care Hospital Television Rental Clerk Name Role Phone MARY YEAGER Attending Physician [phone] MARY YEAGER Rounding (Secondary) Physic gregory [phone] Vital Signs Unknown or Not Available. Allergies Allergy Code Allergy Type Reaction Status LISINOPRIL 84493 Drug allergy Anaphylaxis Active ZITHROMAX 737589 Drug allergy UNKNOWN; Vomiting Activ e Procedures Unknown or Not Available. History of Immunizations Unknown or Not Available. Problems Problem Code Start Date Resolved Date Status Acute diastolic (congestive) heart failure 238916218 Active Diabetes type 2 with nephropathy 352346475 Active Chronic kidney disease stage IV 708019356 Active Anasarca 780063179 Active BPH 101353030 07/13/2021 Resolved GERD 715314408 07/13/2021 Resolved AFIB 81458727 07/13/2021 Resolved Diabetic neuropathy 316407882 07/13/2021 Resol rufina Gout 51306626 07/13/2021 Resolved Hypertension 89355105 07/13/2021 Resolved Results Unknown or Not Available. Active Medications Medication Code Dose Units Frequency Route Modificatio n Start Date/Time Robaxin 500MG Oral Tablet 35688485825 1 TABLET THREE TIMES A DAY ORAL 02/12/2023 16:48 Prescription Detail TAKE 1 TABLET ORAL THREE TIMES A DAY Xarelto 15MG Oral Tablet 6199155 15 MILLIGRAMS EVERY EVENING ORAL 07/16/2021 11:09 Prescription Detail TAKE 15 MILLIGRAMS ORAL EVERY EVENING Medications Administered During Visit Unknown or Not Available. Encounters Encounter Diagnosis Diagnosis Code Start Date Carpal tunnel syndrome, right upper limb G5601 03/30/2021 Social History Smoking Status Code Start Date End Date Former smoker [id number] [birth year] Patient Decision Aids Unknown or Not Available. Discharge Instructions You were admitted to [facility] on 03/30/2021 08:53 with a principal diagnosis of Carpal tunnel syndrome, right upper limb You were discharged from [facility] on 03/30/2021 00:00 Should you have any questions prior [...]
--- OUTSIDE RECORDS SUMMARY | 2023-03-08 10:34 | XMS_ITS | CCD ---
Author Name Unknown Address [address] [place] [address] [phone] Organization Unknown Address [address] [place] [address] [phone] Care Team Providers Care Pad Machine Feeder Name Role Phone GHASSAN ANSARI Attending Physician [phone] Vital Signs Unknown or Not Available. Allergies Allergy Code Allergy Type Reaction Status LISINOPRIL 39213 Drug allergy Anaphylaxis Active ZITHROMAX 467931 Drug allergy UNKNOWN; Vomiting Activ e Procedures Unknown or Not Available. History of Immunizations Unknown or Not Available. Problems Problem Code Start Date Resolved Date Status Acute diastolic (congestive) heart failure 088818355 Active Diabetes type 2 with nephropathy 985681518 Active Chronic kidney disease stage IV 586134673 Active Anasarca 357328705 Active BPH 955485689 07/13/2021 Resolved GERD 765226289 07/13/2021 Resolved AFIB 79768673 07/13/2021 Resolved Diabetic neuropathy 296859309 07/13/2021 Resol rufina Gout 94908863 07/13/2021 Resolved Hypertension 89111076 07/13/2021 Resolved Results Unknown or Not Available. Active Medications Medication Code Dose Units Frequency Route Modificatio n Start Date/Time Robaxin 500MG Oral Tablet 38692851097 1 TABLET THREE TIMES A DAY ORAL 02/12/2023 16:48 Prescription Detail TAKE 1 TABLET ORAL THREE TIMES A DAY Xarelto 15MG Oral Tablet 6399177 15 MILLIGRAMS EVERY EVENING ORAL 07/16/2021 11:09 Prescription Detail TAKE 15 MILLIGRAMS ORAL EVERY EVENING Medications Administered During Visit Unknown or Not Available. Encounters Encounter Diagnosis Diagnosis Code Start Date Lung field abnormal 264067031 01/21/2021 Social History Smoking Status Code Start Date End Date Former smoker [id number] 1956 07/20/1970 Patient Decision Aids Unknown or Not Available. Discharge Instructions You were admitted to [facility] on 01/21/2021 20:06 with a principal diagnosis of Other nonspecific abnormal finding of lung field You were discharged from [facility] on 01/21/2021 20:06 Should you have [...]
--- OUTSIDE RECORDS SUMMARY | 2023-03-08 10:35 | XMS_ITS | CCD ---
Author Name Unknown Address [address] [place] [address] [phone] Organization Unknown Address [address] [place] [address] [phone] Care Team Providers Care Coating Inspector Name Role Phone KAMILAH GONZALEZ Attending Physician [phone] KAMILAH GONZALEZ Rounding (Secondary) Physician [phone] Vital Signs Unknown or Not Available. Allergies Allergy Code Allergy Type Reaction Status LISINOPRIL 55562 Drug allergy Anaphylaxis Active ZITHROMAX 967187 Drug allergy UNKNOWN; Vomiting Activ e Procedures Unknown or Not Available. History of Immunizations Unknown or Not Available. Problems Problem Code Start Date Resolved Date Status Acute diastolic (congestive) heart failure 575223612 Active Diabetes type 2 with nephropathy 314370357 Active Chronic kidney disease stage IV 626003860 Active Anasarca 384386279 Active BPH 716964467 07/13/2021 Resolved GERD 356662681 07/13/2021 Resolved AFIB 99792454 07/13/2021 Resolved Diabetic neuropathy 626657485 07/13/2021 Resol rufina Gout 29835509 07/13/2021 Resolved Hypertension 78082007 07/13/2021 Resolved Results Unknown or Not Available. Active Medications Medication Code Dose Units Frequency Route Modificatio n Start Date/Time Robaxin 500MG Oral Tablet 37014766182 1 TABLET THREE TIMES A DAY ORAL 02/12/2023 16:48 Prescription Detail TAKE 1 TABLET ORAL THREE TIMES A DAY Xarelto 15MG Oral Tablet 3219982 15 MILLIGRAMS EVERY EVENING ORAL 07/16/2021 11:09 [...] Code Start Date End Date Former smoker [id number] [birth year] Patient Decision Aids Unknown or Not Available. Discharge Instructions You were admitted to [facility] on 01/12/2021 10:22 with a principal diagnosis of Hyp hrt & chr kdny dis w hrt fail and stg 1-4/unsp chr kdny You were discharged from [facility] on 01/12/2021 00:00 Should you have any [...]
--- OUTSIDE RECORDS SUMMARY | 2023-03-08 10:35 | XMS_ITS | CCD ---
Author Name Unknown Address [address] [place] [address] [phone] Organization Unknown Address [address] [place] [address] [phone] Care Team Providers Care Riveting Machine Operator Tape Control Name Role Phone ARASH VANN Attending Physician [phone] ARASH VANN Er Physician 6 [phone] ANGELINA Hunt Registered Nurse [phone] Vital Signs Vital Sign Value Unit Date/Time [...] Allergy Code Allergy Type Reaction Status LISINOPRIL 02094 Drug allergy Anaphylaxis Active ZITHROMAX 963236 Drug allergy UNKNOWN; Vomiting Activ e Procedures Unknown or Not Available. History of Immunizations Unknown or Not Available. Problems Problem Code Start Date Resolved Date Status Acute diastolic (congestive) heart failure 063227112 Active Diabetes type 2 with nephropathy 794676698 Active Chronic kidney disease stage IV 990936837 Active Anasarca 046819758 Active Results BNP (PRO-B NATRIURETIC PEPTI DE) - Collect Date/Time: 01/31/2023 20:48 Test Name Code Test Result Test Units Test Ref Rang e NT-proBNP 20731-5 3251.0 pg/mL L=0.0 H=450 C REACTIVE PROTEIN HIGH SENS ITIVITY* - Collect Date/Time: 01/31/2023 20:48 Test Name Code Test Result Test Units Test Ref Rang e CRP-HIGH SENS. 37599-0 146.25 mg/L L=0.00 H=3 .00 CRP-HIGH SENS 63197-7 14.63 mg/dL L=0.00 H=0. 30 COMPREHENSIVE METABOLIC [...] 2028-9 26 mmol/L L=22 H=34 ANION GAP 98771-8 10.5 mmol/L CALCIUM SERUM 59654-9 9.1 mg/dL L=8.2 H=10. 2 BILIRUBIN TOTAL 1975-2 5.6 mg/dL L=0.0 H=1 .3 ALK. PHOS. 6768-6 352 U/L L=46 H=116 SGOT (AST) 1920-8 106 U/L L=15 H=37 SGPT (ALT) 1742-6 70 U/L L=12 H=78 TOTAL PROTEIN 2885-2 8.1 gm/dL L=6.0 H=8.0 ALBUMIN 1751-7 3.2 gm/dL L=3.4 H=5.0 AGE 82 years eGFR (non-Afr.Amer.) 83297-5 19 mL/min eGFR (Afr-[place]) 06714-7 23 mL/min LACTIC ACID - Collect Date/T zaheer: 01/31/2023 20:48 Test Name Code Test Result Test Units Test Ref Rang e LACTIC ACID 27786-7 1.6 mmol/L L=0.7 H=2.1 LIPASE* NEW - Collect Date/T zaheer: 01/31/2023 20:48 Test Name Code Test Result Test Units Test Ref Rang e LIPASE. 83 U/L L=16 H=77 MAGNESIUM SERUM* - Collect D ate/Time: 01/31/2023 20:48 Test Name Code Test Result Test Units Test Ref Rang e MAGNESIUM 99139-8 2.2 mg/dL L=1.8 H=2.4 TROPONIN HIGH SENSITIVITY* [...] % 8.9 % L=10.0 H=50.0 MONO % 64472-9 7.2 % L=2.0 H=12.0 EOS % 0.3 % L=0.0 H=8.0 BASO % 0.2 % L=0.0 H=3.0 IG % 2514-8 0.6 % L=0.0 H=1.1 NRBC % 40966-8 0.0 % L=0.0 H=0.0 NEUT abs count 751-8 7.4 th/cmm L=1.6 H=8. 4 LYMPH abs count 731-0 0.8 th/cmm L=1.5 H=4 .0 MONO abs count 742-7 0.6 th/cmm L=0.2 H=1. 0 EOS abs count 711-2 0.0 th/cmm L=0.0 H=0.5 BASO abs count 704-7 0.0 th/cmm L=0.0 H=0. 2 IG abs count 43112-2 0.1 th/cmm L=0.0 H=0.1 NRBC abs count 36260-2 0.0 mil/cmm L=0.0 H=0. 0 RBC 789-8 [...] Test Units Test Ref Rang e COVID 79005-0 NEGATIVE N/A Normal: Negati ve INFLUENZA A DNA 62896-6 NEGATIVE N/A Normal: N egative INFLUENZA B DNA 58516-4 NEGATIVE N/A Normal: N egative RSV DNA 54488-4 NEGATIVE N/A Normal: Negati ve URINALYSIS WITH REFLEX CULT IF POSITIVE* - Collect Date/Time: 01/31/2023 21:35 Test Name Code Test Result Test Units Test Ref Rang e COLLECTION MODE: 61896-1 CLEAN CATCH N/A Color 5778-6 YELLOW N/A yellow Appearance 5767-9 CLEAR N/A clear Glucose urine 70304-1 NEGATIVE N/A negative mg /dl Bilirubin 5770-3 SMALL N/A negative Ketones 2514-8 NEGATIVE N/A negative mg/dl Spec gravity 5811-5 1.015 N/A 1.003 - 1.03 0 pH urine 2756-5 5.5 N/A 5.0 - 7.0 Protein 13950-7 100 N/A negative mg/dl Urobilinogen 30449-1 2.0 N/A <or= 1 EU/dl Nitrite. 5802-4 NEGATIVE N/A negative Blood 5794-3 MODERATE N/A negative Leukocytes. NEGATIVE N/A negative MICROSCOPIC INDICATED N/A WBCs. 41252-3 none N/A 0-5 / hpf RBCs 02532-7 0-5 N/A 0-5 / hpf Epith cells 95896-0 0-5 N/A 0-5 / hpf Cell types squamous N/A Crystals none N/A none Bacteria none N/A none Mucus 8247-9 present N/A none Casts 61150-3 none N/A none /lpf Active Medications Unknown [...] Code Start Date End Date Former smoker [id number] [birth year] Patient Decision Aids Unknown or Not Available. Discharge Instructions You were admitted to [facility] on 01/31/2023 20:03 with a principal diagnosis of Calculus of bile duct without cholangitis or cholecystitis without obstruction You had the following tests done:URINALYSIS WITH REFLEX CULT IF POSITIVE*[facility] COVID FLU RSV GENEXPERTBNP (PRO-B NATRIURETIC PEPTIDE)C REACTIVE PROTEIN HIGH SENSITIVITY*CBC W/ DIFFERENTIAL*COMPREHENSIVE METABOLIC PANEL (CMP)LACTIC ACIDLIPASE* NEWMAGNESIUM SERUM*TROPONIN HIGH SENSITIVITY* You were discharged from [facility] on 02/01/2023 00:46 Should you have any [...]
--- OUTSIDE RECORDS SUMMARY | 2023-03-08 10:35 | XMS_ITS | CCD ---
Author Name Unknown Address [address] [place] [place] [address] [phone] Organization Unknown Address [address] [place] [address] [phone] Care Team Providers Care Document Control Coordinator Name Role Phone EDWIN BEEBE Attending Physician [phone] JB CHRISTIANSON Er Physician 4 [phone] MAGDIEL Uribe Registered Nurse [phone] Vital Signs Vital Sign Value Unit Date/Time [...] Allergy Code Allergy Type Reaction Status LISINOPRIL 52010 Drug allergy Anaphylaxis Active ZITHROMAX 19630818 Drug allergy UNKNOWN; Vomiting Activ e Procedures Unknown or Not Available. History of Immunizations Unknown or Not Available. Problems Problem Code Start Date Resolved Date Status Acute diastolic (congestive) heart failure 581944374 Active Diabetes type 2 with nephropathy 426324684 Active Chronic kidney disease stage IV 959872480 Active Anasarca 123711954 Active Results COMPREHENSIVE METABOLIC PANE L (CMP) [...] 2028-9 27 mmol/L L=22 H=34 ANION GAP 60014-5 7.1 mmol/L CALCIUM SERUM 97768-9 9.5 mg/dL L=8.2 H=10. 2 BILIRUBIN TOTAL 1975-2 2.0 mg/dL L=0.0 H=1 .3 ALK. PHOS. 6768-6 313 U/L L=46 H=116 SGOT (AST) 1920-8 60 U/L L=15 H=37 SGPT (ALT) 1742-6 45 U/L L=12 H=78 TOTAL PROTEIN 2885-2 8.4 gm/dL L=6.0 H=8.0 ALBUMIN 1751-7 3.0 gm/dL L=3.4 H=5.0 AGE 82 years eGFR (non-Afr.Amer.) 26815-5 27 mL/min eGFR (Afr-E[place]ian) 21325-8 33 mL/min LACTIC ACID - Collect Date/T zaheer: 02/12/2023 12:56 Test Name Code Test Result Test Units Test Ref Rang e LACTIC ACID 92939-5 1.7 mmol/L L=0.7 H=2.1 LIPASE* NEW - [...] % 11.7 % L=10.0 H=50.0 MONO % 48709-0 6.9 % L=2.0 H=12.0 EOS % 0.6 % L=0.0 H=8.0 BASO % 0.3 % L=0.0 H=3.0 IG % 2514-8 0.7 % L=0.0 H=1.1 NRBC % 07589-5 0.0 % L=0.0 H=0.0 NEUT abs count 751-8 7.1 th/cmm L=1.6 H=8. 4 LYMPH abs count 731-0 1.0 th/cmm L=1.5 H=4 .0 MONO abs count 742-7 0.6 th/cmm L=0.2 H=1. 0 EOS abs count 711-2 0.1 th/cmm L=0.0 H=0.5 BASO abs count 704-7 0.0 th/cmm L=0.0 H=0. 2 IG abs count 58369-3 0.1 th/cmm L=0.0 H=0.1 NRBC abs count 98900-2 0.0 mil/cmm L=0.0 H=0. 0 RBC 789-8 [...] PROTIME 5902-2 11.1 seconds L=9.3 H=11.4 INR 98062-6 1.07 L=2.00 H=3.00 PTT PARTIAL THROMBOPLASTIN T ZAHEER* - Collect Date/Time: 02/12/2023 12:56 Test Name Code Test Result Test Units Test Ref Rang e PTT 10344-2 34.3 seconds L=24.5 H=32.8 EMI COVID GENEXPERT* - Co llect Date/Time: 02/12/2023 12:52 Test Name Code Test Result Test Units Test Ref Rang e COVID 89556-8 NEGATIVE N/A Normal: Negati ve SOURCE= 94438-9 Nasopharyngeal N/A Tier- 69330-2 SYMPTOMS N/A URINALYSIS WITH REFLEX CULT IF POSITIVE* - Collect Date/Time: 02/12/2023 14:05 Test Name Code Test Result Test Units Test Ref Rang e COLLECTION MODE: 97480-3 CLEAN CATCH N/A Color 5778-6 YELLOW N/A yellow Appearance 5767-9 CLEAR N/A clear Glucose urine 90409-1 500 N/A negative mg /dl Bilirubin 5770-3 NEGATIVE N/A negative Ketones 2514-8 NEGATIVE N/A negative mg/dl Spec gravity 5811-5 1.010 N/A 1.003 - 1.03 0 pH urine 2756-5 6.0 N/A 5.0 - 7.0 Protein 92075-2 30 N/A negative mg/dl Urobilinogen 11693-5 0.2 N/A <or= 1 EU/dl Nitrite. 5802-4 NEGATIVE N/A negative Blood 5794-3 TRACE-IN N/A negative Leukocytes. NEGATIVE N/A negative MICROSCOPIC INDICATED N/A WBCs. 51062-1 0-5 N/A 0-5 / hpf RBCs 42693-8 0-5 N/A 0-5 / hpf Epith cells 88033-5 0-5 N/A 0-5 / hpf Cell types squamous N/A Crystals none N/A none Bacteria none N/A none Mucus 8247-9 none N/A none Casts 31876-3 none N/A none /lpf Active Medications Unknown or Not Available. Medications Administered During Visit Medication Dose Units Frequency Route Date/Time of Last Dose SODIUM CHLORIDE 0.9% 500ML 500 ML X1 IV 02/12/2023 13:29 MORPHINE INJ SYRINGE: 2MG/ML 2 MG X1 I LAB SUPPORT SERVICE TECH 02/12/2023 13:29 METHOCARBAMOL TAB: 500MG 500 MG X1 PO 02/12/2023 17:06 Encounters Encounter Diagnosis Diagnosis Code Start Date Strain of muscle, fascia and tendon at neck level, initial encounter [id number] 02/12/2023 Social History Smoking Status Code Start Date End Date Former smoker [id number] [birth year] Patient Decision Aids Unknown or Not Available. Discharge Instructions You were admitted to [facility] on 02/12/2023 12:19 with a principal diagnosis of Strain of muscle, fascia and tendon at neck level, initial encounter You had the following tests done:URINALYSIS WITH REFLEX CULT IF POSITIVE*CBC W/ DIFFERENTIAL*COMPREHENSIVE METABOLIC PANEL (CMP)LACTIC ACIDLIPASE* NEWPT PROTHROMBIN TIME*PTT PARTIAL THROMBOPLASTIN TIME*[facility] COVID GENEXPERT* You were discharged from [facility] on 02/12/2023 17:07 Should you [...]
--- OUTSIDE RECORDS SUMMARY | 2023-03-08 10:36 | XMS_ITS | CCD ---
Author Name Unknown Address [address] [place] [address] [phone] Organization Unknown Address [address] [place] [address] [phone] Care Team Providers Care Extras Casting Director Name Role Phone GHASSAN ANSARI Attending Physician [phone] Vital Signs Unknown or Not Available. Allergies Allergy Code Allergy Type Reaction Status LISINOPRIL 20794 Drug allergy Anaphylaxis Active ZITHROMAX 687861 Drug allergy UNKNOWN; Vomiting Activ e Procedures Unknown or Not Available. History of Immunizations Unknown or Not Available. Problems Problem Code Start Date Resolved Date Status Acute diastolic (congestive) heart failure 448247363 Active Diabetes type 2 with nephropathy 270867328 Active Chronic kidney disease stage IV 020151122 Active Anasarca 560334765 Active Results Unknown or Not Available. Active Medications Medication Code Dose Units Frequency Route Modificatio n Start Date/Time Robaxin 500MG Oral Tablet 37396687906 1 TABLET THREE TIMES A DAY ORAL 02/12/2023 16:48 Prescription Detail TAKE 1 TABLET ORAL THREE TIMES A DAY Xarelto 15MG Oral Tablet 9912310 15 MILLIGRAMS EVERY EVENING ORAL 07/16/2021 11:09 Prescription Detail TAKE 15 MILLIGRAMS ORAL EVERY EVENING Medications Administered During Visit Unknown or Not Available. Encounters Encounter Diagnosis Diagnosis Code Start Date Chronic kidney disease, stage 3 unspecified N183 0 02/17/2023 Social History Smoking Status Code Start Date End Date Former smoker [id number] 1956 07/20/1970 Patient Decision Aids Unknown or Not Available. Discharge Instructions You were admitted to [facility] on 02/17/2023 12:48 with a principal diagnosis of Chronic kidney disease, stage 3 unspecified You were discharged from [facility] on 02/17/2023 12:48 Should you have any [...]
--- OUTSIDE RECORDS SUMMARY | 2023-03-08 10:37 | XMS_ITS | CCD ---
Author Name Unknown Address [address] [place] [address] [id number] Organization Unknown Address [address] [place] [address] [phone] Care Team Providers Care Garage Construction Equipment Mechanic Name Role Phone BLADIMIR VANN MD Attending Physician [phone] Vital Signs Unknown or Not Available. Allergies Allergy Code Allergy Type Reaction Status LISINOPRIL 46536 Drug allergy Anaphylaxis Active ZITHROMAX 233228 Drug allergy UNKNOWN; Vomiting Activ e Procedures Unknown or Not Available. History of Immunizations Unknown or Not Available. Problems Problem Code Start Date Resolved Date Status Acute diastolic (congestive) heart failure 991150911 Active Diabetes type 2 with nephropathy 888430358 Active Chronic kidney disease stage IV 314632564 Active Anasarca 344983942 Active BPH 047101708 07/13/2021 Resolved GERD 895685271 07/13/2021 Resolved AFIB 62352198 07/13/2021 Resolved Diabetic neuropathy 705595963 07/13/2021 Resol rufina Gout 58647538 07/13/2021 Resolved Hypertension 54424537 07/13/2021 Resolved Results EMI KINGA BENITOX - [facility] [place] ct Date/Time: 11/03/2020 11:00 Test Name Code Test Result Test Units Test Ref Rang e SOURCE= Anterior nasal N/A Tier- SYMPTOMS N/A SARS COV2 RNA: 75400-2 POSITIVE N/A REFERENCE RANGE: NEGAT Active Medications Medication Code Dose Units Frequency Route Modificatio n Start Date/Time Robaxin 500MG Oral Tablet 94055032476 1 TABLET THREE TIMES A DAY ORAL 02/12/2023 16:48 Prescription Detail TAKE 1 TABLET ORAL THREE TIMES A DAY Xarelto 15MG Oral Tablet 9423910 15 MILLIGRAMS EVERY EVENING ORAL 07/16/2021 11:09 Prescription Detail TAKE 15 MILLIGRAMS ORAL EVERY EVENING Medications Administered During Visit Unknown or Not Available. Encounters Encounter Diagnosis Diagnosis Code Start Date COVID-19 U071 11/03/2020 Social History Smoking Status Code Start Date End Date Former smoker [id number] [birth year] Patient Decision Aids Unknown or Not Available. Discharge Instructions You were admitted to [facility] on 11/03/2020 14:03 with a principal diagnosis of COVID-19 You had the following tests done:[facility] KINGA OLIVERX You were discharged from [facility] on 11/03/2020 14:03 Should [...]
[2023-03-08 14:30] LABS: HCT 30.1 % (40.0-50.0); HGB 9.9 g/dL (13.5-17.5); MCH 35.4 pg (27.0-33.0); MCHC 32.9 % (32.0-36.0); MCV 108 fL (80-95); MPV 9.5 fL (8.0-11.0); Platelet Count 261 10^3/uL (130-400); RDW 13.2 % (11.8-14.1); RDW-SD 53.1 fL
[2023-03-08 16:47] LABS: ALT 25 U/L (16-63); AST 37 U/L (15-37); Albumin 2.7 g/dL (3.4-5.0); Alkaline Phosphatase 205 U/L (46-116); Anion Gap 11.6 mmol/L (3-11); BUN 75 mg/dL (7-18); Bilirubin, Total 0.6 mg/dL (0.2-1.0); CO2 24.4 mmol/L (21.0-32.0); CREATININE 3.1 mg/dL (0.70-1.30); Calcium 9.4 mg/dL (8.5-10.1); Chloride 101 mmol/L (98-107); Estimated GFR 19.21 (mL/min/1.73m2); Glucose 182 mg/dL (74-106); Potassium 4.7 mmol/L (3.5-5.1); Sodium 137 mmol/L (136-145); Total Protein 8.2 g/dL (6.4-8.2)
== END 2023-03-08 10:31 | disposition home or self-care (01) ==
LOC: NCHCN 10:30
PROVIDERS: PCP Internal Medicine; Visit Provider Internal Medicine
DX: K83.09 Other cholangitis (principal)
CPT/HCPCS: 80053; 85027

== ENCOUNTER 2023-03-11 19:25 | Outpatient (REF) | payer MEDICARE, BC, SELFPAY ==
--- OUTSIDE RECORDS SUMMARY | 2023-03-11 19:27 | XMS_ITS | CCD ---
Author Name Unknown Address [address] [place] [address] [phone] Organization Unknown Address [address] [place] [address] [id number] Care Team Providers Care Watch Engine Operator Name Role Phone KAMILAH GONZALEZ Attending Physician [phone] KAMILAH GONZALEZ Rounding (Secondary) Physician [phone] Vital Signs Unknown or Not Available. Allergies Allergy Code Allergy Type Reaction Status LISINOPRIL 28443 Drug allergy Anaphylaxis Active ZITHROMAX 069897 Drug allergy UNKNOWN; Vomiting Activ e Procedures Unknown or Not Available. History of Immunizations Unknown or Not Available. Problems Problem Code Start Date Resolved Date Status Acute diastolic (congestive) heart failure 897215158 Active Diabetes type 2 with nephropathy 424766442 Active Chronic kidney disease stage IV 843757350 Active Anasarca 699808678 Active BPH 483947949 07/13/2021 Resolved GERD 844494103 07/13/2021 Resolved AFIB 58322374 07/13/2021 Resolved Melanoma of facial skin 34032753 12/13/2019 R esolved Diabetic neuropathy 529962486 07/13/2021 Resol rufina Gout 99937134 07/13/2021 Resolved CHF 66134157 12/13/2019 Resolved Hypertension 97972615 07/13/2021 Resolved Diabetes 2 44878706 12/13/2019 Resolved Results Unknown or Not Available. Active Medications Medication Code Dose Units Frequency Route Modificatio n Start Date/Time Robaxin 500MG Oral Tablet [id number] 1 TABLET THREE TIMES A DAY ORAL 02/12/2023 16:48 Prescription Detail TAKE 1 TABLET ORAL THREE TIMES A DAY Xarelto 15MG Oral Tablet [id number] 15 MILLIGRAMS EVERY EVENING ORAL 07/16/2021 11:09 Prescription Detail TAKE 15 MILLIGRAMS ORAL EVERY EVENING Medications Administered During Visit Unknown or Not Available. Encounters Unknown or Not Available. Social History Smoking Status Code Start Date End Date Former smoker [id number] [birth year] Patient Decision Aids Unknown or Not Available. Discharge Instructions You were admitted to [facility] You were discharged from [facility] Should you have any questions prior [...]
--- OUTSIDE RECORDS SUMMARY | 2023-03-11 19:27 | XMS_ITS | CCD ---
Author Name Unknown Address [address] [place] [address] [id number] Organization Unknown Address [address] [place] [address] [phone] Care Team Providers Care Four H Club Agent Name Role Phone SUSY JAY Attending Physician [phone] SUSY JAY Rounding (Secondary) Physician [phone] Vital Signs Unknown or Not Available. Allergies Allergy Code Allergy Type Reaction Status LISINOPRIL 11571 Drug allergy Anaphylaxis Active ZITHROMAX 826359 Drug allergy UNKNOWN; Vomiting Activ e Procedures Unknown or Not Available. History of Immunizations Unknown or Not Available. Problems Problem Code Start Date Resolved Date Status Acute diastolic (congestive) heart failure 018503265 Active Diabetes type 2 with nephropathy 901365481 Active Chronic kidney disease stage IV 887720575 Active Anasarca 164711245 Active Results Unknown or Not Available. Active Medications Medication Code Dose Units Frequency Route Modificatio n Start Date/Time Robaxin 500MG Oral Tablet [id number] 1 TABLET THREE TIMES A DAY ORAL 02/12/2023 16:48 Prescription Detail TAKE 1 TABLET ORAL THREE TIMES A DAY Xarelto 15MG Oral Tablet [id number] 15 MILLIGRAMS EVERY EVENING ORAL 07/16/2021 11:09 Prescription Detail TAKE 15 MILLIGRAMS ORAL EVERY EVENING Medications Administered During Visit Unknown or Not Available. Encounters Encounter Diagnosis Diagnosis Code Start Date Idiopathic osteoarthritis [id number] 2021 Social History Smoking Status Code Start Date End Date Former smoker [id number] [birth year] Patient Decision Aids Unknown or Not Available. Discharge Instructions You were admitted to [facility] on 10/29/2021 08:34 with a principal diagnosis of Unilateral primary osteoarthritis, left knee You were discharged from [facility] on 10/29/2021 00:00 Should you [...]
--- OUTSIDE RECORDS SUMMARY | 2023-03-11 19:27 | XMS_ITS | CCD ---
Author Name Unknown Address [address] [place] [address] [phone] Organization Unknown Address [address] [place] [address] [phone] Care Team Providers Care Floral Associate Name Role Phone MARANDA MARCUS Attending Physician [phone] MARANDA MARCUS Rounding (Secondary) Physician [phone] Vital Signs Unknown or Not Available. Allergies Allergy Code Allergy Type Reaction Status LISINOPRIL 85484 Drug allergy Anaphylaxis Active ZITHROMAX 123425 Drug allergy UNKNOWN; Vomiting Activ e Procedures Unknown or Not Available. History of Immunizations Unknown or Not Available. Problems Problem Code Start Date Resolved Date Status Acute diastolic (congestive) heart failure 951628166 Active Diabetes type 2 with nephropathy 386270869 Active Chronic kidney disease stage IV 580014391 Active Anasarca 473010484 Active Results Unknown or Not Available. Active Medications Medication Code Dose Units Frequency Route Modificatio n Start Date/Time Robaxin 500MG Oral Tablet [id number] 1 TABLET THREE TIMES A DAY ORAL 02/12/2023 16:48 Prescription Detail TAKE 1 TABLET ORAL THREE TIMES A DAY Xarelto 15MG Oral Tablet 0368518 15 MILLIGRAMS EVERY EVENING ORAL 07/16/2021 11:09 Prescription Detail TAKE 15 MILLIGRAMS ORAL EVERY EVENING Medications Administered During Visit Unknown or Not Available. Encounters Encounter Diagnosis Diagnosis Code Start Date Other specific arthropathies , not elsewhere classified, right shoulder [id number] 06/29/2022 Social History Smoking Status Code Start Date End Date Former smoker [id number] [birth year] Patient Decision Aids Unknown or Not Available. Discharge Instructions You were admitted to [facility] on 06/29/2022 14:22 with a principal diagnosis of Other specific arthropathies, not elsewhere classified, right shoulder You were discharged from [facility] on 06/29/2022 00:00 Should you have [...]
--- OUTSIDE RECORDS SUMMARY | 2023-03-11 19:27 | XMS_ITS | CCD ---
Author Name Unknown Address [address] [place] [address] [id number] Organization Unknown Address [address] [place] [address] [id number] Care Team Providers Care Internal Controls Manager Name Role Phone COTY GHASSAN R Attending Physician [phone] Vital Signs Unknown or Not Available. Allergies Allergy Code Allergy Type Reaction Status LISINOPRIL 48090 Drug allergy Anaphylaxis Active ZITHROMAX 437610 Drug allergy UNKNOWN; Vomiting Activ e Procedures Unknown or Not Available. History of Immunizations Unknown or Not Available. Problems Problem Code Start Date Resolved Date Status Acute diastolic (congestive) heart failure 991175201 Active Diabetes type 2 with nephropathy 578394421 Active Chronic kidney disease stage IV 251694379 Active Anasarca 216908325 Active Results Unknown or Not Available. Active Medications Medication Code Dose Units Frequency Route Modificatio n Start Date/Time Robaxin 500MG Oral Tablet [id number] 1 TABLET THREE TIMES A DAY ORAL 02/12/2023 16:48 Prescription Detail TAKE 1 TABLET ORAL THREE TIMES A DAY Xarelto 15MG Oral Tablet 5382749 15 MILLIGRAMS EVERY EVENING ORAL 07/16/2021 11:09 Prescription Detail TAKE 15 MILLIGRAMS ORAL EVERY EVENING Medications Administered During Visit Unknown or Not Available. Encounters Encounter Diagnosis Diagnosis Code Start Date Complete rotator cuff tear o r rupture of right shoulder, not specified as traumatic [id number] 03/30/2022 Social History Smoking Status Code Start Date End Date Former smoker [id number] 1956 07/20/1970 Patient Decision Aids Unknown or Not Available. Discharge Instructions You were admitted to [facility] on 03/30/2022 09:40 with a principal diagnosis of Complete rotator cuff tear or rupture of right shoulder, not specified as traumatic You were discharged from [facility] on 03/30/2022 09:40 Should you [...]
--- OUTSIDE RECORDS SUMMARY | 2023-03-11 19:27 | XMS_ITS | CCD ---
Author Name Unknown Address [address] [place] [address] [phone] Organization Unknown Address [address] [place] [address] [phone] Care Team Providers Care Bmw Service Technician Name Role Phone KAMILAH GONZALEZ Attending Physician [phone] KAMILAH GONZALEZ Rounding (Secondary) Physician [phone] Vital Signs Unknown or Not Available. Allergies Allergy Code Allergy Type Reaction Status LISINOPRIL 64051 Drug allergy Anaphylaxis Active ZITHROMAX 374133 Drug allergy UNKNOWN; Vomiting Activ e Procedures Unknown or Not Available. History of Immunizations Unknown or Not Available. Problems Problem Code Start Date Resolved Date Status Acute diastolic (congestive) heart failure 229464384 Active Diabetes type 2 with nephropathy 545091831 Active Chronic kidney disease stage IV 413422252 Active Anasarca 255002822 Active Results Unknown or Not Available. Active Medications Medication Code Dose Units Frequency Route Modificatio n Start Date/Time Robaxin 500MG Oral Tablet [id number] 1 TABLET THREE TIMES A DAY ORAL 02/12/2023 16:48 Prescription Detail TAKE 1 TABLET ORAL THREE TIMES A DAY Xarelto 15MG Oral Tablet 9363319 15 MILLIGRAMS EVERY EVENING ORAL 07/16/2021 11:09 Prescription Detail TAKE 15 MILLIGRAMS ORAL EVERY EVENING Medications Administered During Visit Unknown or Not Available. Encounters Encounter Diagnosis Diagnosis Code Start Date Unspecified atrial fibrillation [id number] 08/28/2021 Social History Smoking Status Code Start Date End Date Former smoker [id number] [birth year] Patient Decision Aids Unknown or Not Available. Discharge Instructions You were admitted to [facility] on 08/28/2021 07:19 with a principal diagnosis of Unspecified atrial fibrillation You were discharged from [facility] on 08/28/2021 00:00 Should you have [...]
--- OUTSIDE RECORDS SUMMARY | 2023-03-11 19:28 | XMS_ITS | CCD ---
Author Name Unknown Address [address] [place] [address] [id number] Organization Unknown Address [address] [place] [address] [phone] Care Team Providers Care Mammal Control Agent Name Role Phone SAVANNA TAVERAS Attending Physician [phone] Vital Signs Unknown or Not Available. Allergies Allergy Code Allergy Type Reaction Status LISINOPRIL 33433 Drug allergy Anaphylaxis Active ZITHROMAX 514266 Drug allergy UNKNOWN; Vomiting Activ e Procedures Unknown or Not Available. History of Immunizations Unknown or Not Available. Problems Problem Code Start Date Resolved Date Status Acute diastolic (congestive) heart failure 168563256 Active Diabetes type 2 with nephropathy 450390291 Active Chronic kidney disease stage IV 846046681 Active Anasarca 555644358 Active BPH 034670273 07/13/2021 Resolved GERD 097017692 07/13/2021 Resolved AFIB 33934652 07/13/2021 Resolved Diabetic neuropathy 752050948 07/13/2021 Resol rufina Gout 52145190 07/13/2021 Resolved Hypertension 21797842 07/13/2021 Resolved Results Unknown or Not Available. Active Medications Medication Code Dose Units Frequency Route Modificatio n Start Date/Time Robaxin 500MG Oral Tablet 71604941080 1 TABLET THREE TIMES A DAY ORAL 02/12/2023 16:48 Prescription Detail TAKE 1 TABLET ORAL THREE TIMES A DAY Xarelto 15MG Oral Tablet [id number] 15 MILLIGRAMS EVERY EVENING ORAL 07/16/2021 11:09 [...] Code Start Date End Date Former smoker [id number] 1956 07[birth year]20/1970 Patient Decision Aids Unknown or Not Available. Discharge Instructions You were admitted to on 07/13/2021 01:33 with a principal diagnosis of Hyp hrt & chr kdny dis w hrt fail and stg 1-4/unsp chr kdny You were discharged from on 07/16/2021 01:34 Should you have any [...]
--- OUTSIDE RECORDS SUMMARY | 2023-03-11 19:28 | XMS_ITS | CCD ---
Author Name Unknown Address [address] [place] [address] [phone] Organization Unknown Address [address] [place] [address] [phone] Care Team Providers Care Insurance Risk Analyst Name Role Phone CALLY FUENTES Attending Physician [phone] CALLY FUENTES Rounding (Secondary) Physician [phone] Vital Signs Unknown or Not Available. Allergies Allergy Code Allergy Type Reaction Status LISINOPRIL 66800 Drug allergy Anaphylaxis Active ZITHROMAX 266610 Drug allergy UNKNOWN; Vomiting Activ e Procedures Unknown or Not Available. History of Immunizations Unknown or Not Available. Problems Problem Code Start Date Resolved Date Status Acute diastolic (congestive) heart failure 467136639 Active Diabetes type 2 with nephropathy 272727146 Active Chronic kidney disease stage IV 067584804 Active Anasarca 981957196 Active BPH 718236823 07/13/2021 Resolved GERD 871309907 07/13/2021 Resolved AFIB 79753697 07/13/2021 Resolved Diabetic neuropathy 781498673 07/13/2021 Resol rufina Gout 84584729 07/13/2021 Resolved Hypertension 31661670 07/13/2021 Resolved Results Unknown or Not Available. Active Medications Medication Code Dose Units Frequency Route Modificatio n Start Date/Time Robaxin 500MG Oral Tablet [id number] 1 TABLET THREE TIMES A DAY ORAL 02/12/2023 16:48 Prescription Detail TAKE 1 TABLET ORAL THREE TIMES A DAY Xarelto 15MG Oral Tablet [id number] 15 MILLIGRAMS EVERY EVENING ORAL 07/16/2021 11:09 Prescription Detail TAKE 15 MILLIGRAMS ORAL EVERY EVENING Medications Administered During Visit Unknown or Not Available. Encounters Encounter Diagnosis Diagnosis Code Start Date Removal of suture 82501629 04/22/2021 Social History Smoking Status Code Start Date End Date Former smoker [id number] 1956 07[birth year]20/1970 Patient Decision Aids Unknown or Not Available. Discharge Instructions You were admitted to [facility] on 04/22/2021 11:31 with a principal diagnosis of Encounter for removal of sutures You were discharged from [facility] on 04/22/2021 00:00 Should you have [...]
--- OUTSIDE RECORDS SUMMARY | 2023-03-11 19:28 | XMS_ITS | CCD ---
Author Name Unknown Address [address] [place] [address] [phone] Organization Unknown Address [address] [place] [address] [phone] Care Team Providers Care Color Drum Worker Name Role Phone ALIYAH DUMONT Attending Physician [phone] Vital Signs Unknown or Not Available. Allergies Allergy Code Allergy Type Reaction Status LISINOPRIL 47755 Drug allergy Anaphylaxis Active ZITHROMAX 262131 Drug allergy UNKNOWN; Vomiting Activ e Procedures Procedure Code Procedure Type Date Neuroplasty &/Or Transpositi on; Median Nerve At Carpal Tunnel 06569 CPT 04/10/2021 History of Immunizations Unknown or Not Available. Problems Problem Code Start Date Resolved Date Status Acute diastolic (congestive) heart failure 342603400 Active Diabetes type 2 with nephropathy 816950528 Active Chronic kidney disease stage IV 516914097 Active Anasarca 828465215 Active BPH 622691756 07/13/2021 Resolved GERD 903694818 07/13/2021 Resolved AFIB 80410741 07/13/2021 Resolved Diabetic neuropathy 222512720 07/13/2021 Resol rufina Gout 82888537 07/13/2021 Resolved Hypertension 95503833 07/13/2021 Resolved Results Unknown or Not Available. [...] Code Start Date End Date Former smoker [id number] 1956 07[birth year]20[birth year]1969 Patient Decision Aids Unknown or Not Available. Discharge Instructions You were admitted to [facility] on 04/10/2021 06:56 with a principal diagnosis of Carpal tunnel syndrome, right upper limb You had the following procedures done:Neuroplasty &/Or Transposition; Median Nerve At Carpal Tunnel You were discharged from [facility] on 04/10/2021 09:22 Should you [...]
--- OUTSIDE RECORDS SUMMARY | 2023-03-11 19:29 | XMS_ITS | CCD ---
Author Name Unknown Address [address] [place] [address] [phone] Organization Unknown Address [address] [place] [address] [phone] Care Team Providers Care Car Wash Supervisor Name Role Phone JESSICA UMAÑA Attending Physician [phone] JESSICA UMAÑA Er Physician 1 [phone] ALIE Werner Registered Nurse [phone] Vital Signs Vital Sign Value Unit Date/Time [...] Allergy Code Allergy Type Reaction Status LISINOPRIL 08362 Drug allergy Anaphylaxis Active ZITHROMAX 405405 Drug allergy UNKNOWN; Vomiting Activ e Procedures Unknown or Not Available. History of Immunizations Unknown or Not Available. Problems Problem Code Start Date Resolved Date Status Acute diastolic (congestive) heart failure 807078762 Active Diabetes type 2 with nephropathy 482773987 Active Chronic kidney disease stage IV 297399366 Active Anasarca 868725314 Active BPH 859177458 07/13/2021 Resolved GERD 495824833 07/13/2021 Resolved AFIB 70822331 07/13/2021 Resolved Diabetic neuropathy 030734260 07/13/2021 Resol rufina Gout 14887299 07/13/2021 Resolved Hypertension 01549598 07/13/2021 Resolved Results Unknown or Not Available. Active Medications Unknown or Not Available. Medications Administered During Visit Unknown or Not Available. Encounters Encounter Diagnosis Diagnosis Code Start Date Injury of shoulder and upper arm 324039964 02/12/2021 Social History Smoking Status Code Start Date End Date Former smoker [id number] 1956 07[birth year]20/1969 Patient Decision Aids Unknown or Not Available. Discharge Instructions You were admitted to [facility] on 02/12/2021 13:59 with a principal diagnosis of Unspecified injury of left shoulder and upper arm, initial encounter You were discharged from [facility] on 02/12/2021 18:51 Should you have any [...]
--- OUTSIDE RECORDS SUMMARY | 2023-03-11 19:29 | XMS_ITS | CCD ---
Author Name Unknown Address [address] [place] [address] [phone] Organization Unknown Address [address] [place] [address] [phone] Care Team Providers Care Asparagus Buncher Name Role Phone KAMILAH GONZALEZ Attending Physician [phone] KAMILAH GONZALEZ Rounding (Secondary) Physician [phone] Vital Signs Unknown or Not Available. Allergies Allergy Code Allergy Type Reaction Status LISINOPRIL 09143 Drug allergy Anaphylaxis Active ZITHROMAX 877938 Drug allergy UNKNOWN; Vomiting Activ e Procedures Unknown or Not Available. History of Immunizations Unknown or Not Available. Problems Problem Code Start Date Resolved Date Status Acute diastolic (congestive) heart failure 609535099 Active Diabetes type 2 with nephropathy 323555005 Active Chronic kidney disease stage IV 415429073 Active Anasarca 892510045 Active BPH 800979234 07/13/2021 Resolved GERD 589701772 07/13/2021 Resolved AFIB 60958016 07/13/2021 Resolved Diabetic neuropathy 788727162 07/13/2021 Resol rufina Gout 25707719 07/13/2021 Resolved Hypertension 60060916 07/13/2021 Resolved Results Unknown or Not Available. Active Medications Medication Code Dose Units Frequency Route Modificatio n Start Date/Time Robaxin 500MG Oral Tablet [id number] 1 TABLET THREE TIMES A DAY ORAL 02/12/2023 16:48 Prescription Detail TAKE 1 TABLET ORAL THREE TIMES A DAY Xarelto 15MG Oral Tablet 9788749 15 MILLIGRAMS EVERY EVENING ORAL 07/16/2021 11:09 [...] Code Start Date End Date Former smoker [id number] 1956 07[birth year]20/1970 Patient Decision Aids Unknown or Not Available. Discharge Instructions You were admitted to [facility] on 01/12/2021 10:22 with a principal diagnosis of Hyp hrt & chr kdny dis w hrt fail and stg 1-4/unsp chr kdny You were discharged from [facility] on 01/12/2021 00:00 Should you [...]
--- OUTSIDE RECORDS SUMMARY | 2023-03-11 19:29 | XMS_ITS | CCD ---
Author Name Unknown Address [address] [place] [address] [phone] Organization Unknown Address [address] [place] [address] [phone] Care Team Providers Care Welt Insole Channeler Name Role Phone JC SOTO Attending Physician [phone] JC SOTO Rounding (Secondary) Physician 1 [phone] Vital Signs Unknown or Not Available. Allergies Allergy Code Allergy Type Reaction Status LISINOPRIL 46423 Drug allergy Anaphylaxis Active ZITHROMAX 717470 Drug allergy UNKNOWN; Vomiting Activ e Procedures Unknown or Not Available. History of Immunizations Unknown or Not Available. Problems Problem Code Start Date Resolved Date Status Acute diastolic (congestive) heart failure 103647463 Active Diabetes type 2 with nephropathy 911031374 Active Chronic kidney disease stage IV 865350076 Active Anasarca 596903405 Active BPH 613436862 07/13/2021 Resolved GERD 444948228 07/13/2021 Resolved AFIB 10589395 07/13/2021 Resolved Diabetic neuropathy 593139733 07/13/2021 Resol rufina Gout 24565869 07/13/2021 Resolved Hypertension 36790861 07/13/2021 Resolved Results Unknown or Not Available. Active Medications Medication Code Dose Units Frequency Route Modificatio n Start Date/Time Robaxin 500MG Oral Tablet 93704777588 1 TABLET THREE TIMES A DAY ORAL 02/12/2023 16:48 Prescription Detail TAKE 1 TABLET ORAL THREE TIMES A DAY Xarelto 15MG Oral Tablet 1602573 15 MILLIGRAMS EVERY EVENING ORAL 07/16/2021 11:09 Prescription Detail TAKE 15 MILLIGRAMS ORAL EVERY EVENING Medications Administered During Visit Unknown or Not Available. Encounters Encounter Diagnosis Diagnosis Code Start Date Idiopathic osteoarthritis [id number] 2021 Social History Smoking Status Code Start Date End Date Former smoker [id number] 1956 07[birth year]20[birth year]1969 Patient Decision Aids Unknown or Not Available. Discharge Instructions You were admitted to [facility] on 04/15/2021 09:33 with a principal diagnosis of Unilateral primary osteoarthritis, left knee You were discharged from [facility] on 04/15/2021 00:00 Should you have any [...]
--- OUTSIDE RECORDS SUMMARY | 2023-03-11 19:29 | XMS_ITS | CCD ---
Author Name Unknown Address [address] [place] [address] [phone] Organization Unknown Address [address] [place] [address] [phone] Care Team Providers Care Scoop Operator Name Role Phone JC SOTO Attending Physician [phone] JC SOTO Rounding (Secondary) Physician [phone] Vital Signs Unknown or Not Available. Allergies Allergy Code Allergy Type Reaction Status LISINOPRIL 69389 Drug allergy Anaphylaxis Active ZITHROMAX 158697 Drug allergy UNKNOWN; Vomiting Activ e Procedures Unknown or Not Available. History of Immunizations Unknown or Not Available. Problems Problem Code Start Date Resolved Date Status Acute diastolic (congestive) heart failure 039291205 Active Diabetes type 2 with nephropathy 940743967 Active Chronic kidney disease stage IV 961716721 Active Anasarca 721753026 Active BPH 063256918 07/13/2021 Resolved GERD 742875356 07/13/2021 Resolved AFIB 18247061 07/13/2021 Resolved Diabetic neuropathy 325031689 07/13/2021 Resol rufina Gout 42463839 07/13/2021 Resolved Hypertension 50685969 07/13/2021 Resolved Results Unknown or Not Available. Active Medications Medication Code Dose Units Frequency Route Modificatio n Start Date/Time Robaxin 500MG Oral Tablet 95484122109 1 TABLET THREE TIMES A DAY ORAL 02/12/2023 16:48 Prescription Detail TAKE 1 TABLET ORAL THREE TIMES A DAY Xarelto 15MG Oral Tablet 4557847 15 MILLIGRAMS EVERY EVENING ORAL 07/16/2021 11:09 Prescription Detail TAKE 15 MILLIGRAMS ORAL EVERY EVENING Medications Administered During Visit Unknown or Not Available. Encounters Encounter Diagnosis Diagnosis Code Start Date Idiopathic osteoarthritis [id number] 2020 Social History Smoking Status Code Start Date End Date Former smoker [id number] 1956 07/20[birth year]1969 Patient Decision Aids Unknown or Not Available. Discharge Instructions You were admitted to [facility] on 02/12/2021 13:09 with a principal diagnosis of Unilateral primary osteoarthritis, left knee You were discharged from [facility] on 02/12/2021 00:00 Should you have any [...]
--- OUTSIDE RECORDS SUMMARY | 2023-03-11 19:29 | XMS_ITS | CCD ---
Author Name Unknown Address [address] [place] [address] [id number] Organization Unknown Address [address] [place] [address] [id number] Care Team Providers Care Bead Builder Name Role Phone MARY YEAGER Attending Physician [phone] MARY YEAGER Rounding (Secondary) Physic gregory [phone] Vital Signs Unknown or Not Available. Allergies Allergy Code Allergy Type Reaction Status LISINOPRIL 33267 Drug allergy Anaphylaxis Active ZITHROMAX 616380 Drug allergy UNKNOWN; Vomiting Activ e Procedures Unknown or Not Available. History of Immunizations Unknown or Not Available. Problems Problem Code Start Date Resolved Date Status Acute diastolic (congestive) heart failure 356971241 Active Diabetes type 2 with nephropathy 955825533 Active Chronic kidney disease stage IV 348237150 Active Anasarca 081594324 Active BPH 370828017 07/13/2021 Resolved GERD 295055413 07/13/2021 Resolved AFIB 62608545 07/13/2021 Resolved Diabetic neuropathy 789424059 07/13/2021 Resol rufina Gout 89466448 07/13/2021 Resolved Hypertension 89192558 07/13/2021 Resolved Results Unknown or Not Available. Active Medications Medication Code Dose Units Frequency Route Modificatio n Start Date/Time Robaxin 500MG Oral Tablet 41747101597 1 TABLET THREE TIMES A DAY ORAL 02/12/2023 16:48 Prescription Detail TAKE 1 TABLET ORAL THREE TIMES A DAY Xarelto 15MG Oral Tablet 3617157 15 MILLIGRAMS EVERY EVENING ORAL 07/16/2021 11:09 Prescription Detail TAKE 15 MILLIGRAMS ORAL EVERY EVENING Medications Administered During Visit Unknown or Not Available. Encounters Encounter Diagnosis Diagnosis Code Start Date Carpal tunnel syndrome, right upper limb G5601 03/30/2021 Social History Smoking Status Code Start Date End Date Former smoker [id number] [birth year] Patient Decision Aids Unknown or Not Available. Discharge Instructions You were admitted to [facility] on 03/30/2021 08:53 with a principal diagnosis of Carpal tunnel syndrome, right upper limb You were discharged from [facility] on 03/30/2021 00:00 Should you have any [...]
--- OUTSIDE RECORDS SUMMARY | 2023-03-11 19:29 | XMS_ITS | CCD ---
Author Name Unknown Address [address] [place] [address] [id number] Organization Unknown Address [address] [place] [address] [phone] Care Team Providers Care Federal Judge Name Role Phone GHASSAN ANSARI Attending Physician [phone] Vital Signs Unknown or Not Available. Allergies Allergy Code Allergy Type Reaction Status LISINOPRIL 03606 Drug allergy Anaphylaxis Active ZITHROMAX 180196 Drug allergy UNKNOWN; Vomiting Activ e Procedures Unknown or Not Available. History of Immunizations Unknown or Not Available. Problems Problem Code Start Date Resolved Date Status Acute diastolic (congestive) heart failure 742037533 Active Diabetes type 2 with nephropathy 946696768 Active Chronic kidney disease stage IV 279094797 Active Anasarca 325190450 Active BPH 771185658 07/13/2021 Resolved GERD 778369497 07/13/2021 Resolved AFIB 30338119 07/13/2021 Resolved Diabetic neuropathy 684828869 07/13/2021 Resol rufina Gout 86801527 07/13/2021 Resolved Hypertension 16340537 07/13/2021 Resolved Results Unknown or Not Available. Active Medications Medication Code Dose Units Frequency Route Modificatio n Start Date/Time Robaxin 500MG Oral Tablet 42694433018 1 TABLET THREE TIMES A DAY ORAL 02/12/2023 16:48 Prescription Detail TAKE 1 TABLET ORAL THREE TIMES A DAY Xarelto 15MG Oral Tablet 5338293 15 MILLIGRAMS EVERY EVENING ORAL 07/16/2021 11:09 Prescription Detail TAKE 15 MILLIGRAMS ORAL EVERY EVENING Medications Administered During Visit Unknown or Not Available. Encounters Encounter Diagnosis Diagnosis Code Start Date Lung field abnormal [id number] 01/21/2021 Social History Smoking Status Code Start Date End Date Former smoker [id number] 1956 07/20/1970 Patient Decision Aids Unknown or Not Available. Discharge Instructions You were admitted to [facility] on 01/21/2021 20:06 with a principal diagnosis of Other nonspecific abnormal finding of lung field You were discharged from [facility] on 01/21/2021 20:06 Should you have [...]
--- OUTSIDE RECORDS SUMMARY | 2023-03-11 19:29 | XMS_ITS | CCD ---
Author Name Unknown Address [address] [place] [address] [id number] Organization Unknown Address [address] [place] [address] [id number] Care Team Providers Care Front Office Help Name Role Phone ARASH VANN Attending Physician [phone] ARASH VANN Er Physician 2 [phone] ANGELINA Hunt Registered Nurse [phone] Vital Signs Vital Sign Value Unit Date/Time [...] Allergy Code Allergy Type Reaction Status LISINOPRIL 16767 Drug allergy Anaphylaxis Active ZITHROMAX 359055 Drug allergy UNKNOWN; Vomiting Activ e Procedures Unknown or Not Available. History of Immunizations Unknown or Not Available. Problems Problem Code Start Date Resolved Date Status Acute diastolic (congestive) heart failure 773205624 Active Diabetes type 2 with nephropathy 487436755 Active Chronic kidney disease stage IV 285540222 Active Anasarca 285161030 Active Results BNP (PRO-B NATRIURETIC PEPTI DE) - Collect Date/Time: 01/31/2023 20:48 Test Name Code Test Result Test Units Test Ref Rang e NT-proBNP 12468-5 3251.0 pg/mL L=0.0 H=450 C REACTIVE PROTEIN HIGH SENS ITIVITY* - Collect Date/Time: 01/31/2023 20:48 Test Name Code Test Result Test Units Test Ref Rang e CRP-HIGH SENS. 27290-0 146.25 mg/L L=0.00 H=3 .00 CRP-HIGH SENS 85309-3 14.63 mg/dL L=0.00 H=0. 30 COMPREHENSIVE METABOLIC [...] 2028-9 26 mmol/L L=22 H=34 ANION GAP 01231-9 10.5 mmol/L CALCIUM SERUM 31462-5 9.1 mg/dL L=8.2 H=10. 2 BILIRUBIN TOTAL 1975-2 5.6 mg/dL L=0.0 H=1 .3 ALK. PHOS. 6768-6 352 U/L L=46 H=116 SGOT (AST) 1920-8 106 U/L L=15 H=37 SGPT (ALT) 1742-6 70 U/L L=12 H=78 TOTAL PROTEIN 2885-2 8.1 gm/dL L=6.0 H=8.0 ALBUMIN 1751-7 3.2 gm/dL L=3.4 H=5.0 AGE 82 years eGFR (non-Afr.Amer.) 63682-6 19 mL/min eGFR (Afr-Ukrainian) 85385-0 23 mL/min LACTIC ACID - Collect Date/T zaheer: 01/31/2023 20:48 Test Name Code Test Result Test Units Test Ref Rang e LACTIC ACID 22922-7 1.6 mmol/L L=0.7 H=2.1 LIPASE* NEW - Collect Date/T zaheer: 01/31/2023 20:48 Test Name Code Test Result Test Units Test Ref Rang e LIPASE. 83 U/L L=16 H=77 MAGNESIUM SERUM* - Collect D ate/Time: 01/31/2023 20:48 Test Name Code Test Result Test Units Test Ref Rang e MAGNESIUM 28802-8 2.2 mg/dL L=1.8 H=2.4 TROPONIN HIGH SENSITIVITY* [...] % 8.9 % L=10.0 H=50.0 MONO % 08932-1 7.2 % L=2.0 H=12.0 EOS % 0.3 % L=0.0 H=8.0 BASO % 0.2 % L=0.0 H=3.0 IG % 2514-8 0.6 % L=0.0 H=1.1 NRBC % 41886-1 0.0 % L=0.0 H=0.0 NEUT abs count 751-8 7.4 th/cmm L=1.6 H=8. 4 LYMPH abs count 731-0 0.8 th/cmm L=1.5 H=4 .0 MONO abs count 742-7 0.6 th/cmm L=0.2 H=1. 0 EOS abs count 711-2 0.0 th/cmm L=0.0 H=0.5 BASO abs count 704-7 0.0 th/cmm L=0.0 H=0. 2 IG abs count 13969-4 0.1 th/cmm L=0.0 H=0.1 NRBC abs count 36814-4 0.0 mil/cmm L=0.0 H=0. 0 RBC 789-8 [...] Test Units Test Ref Rang e COVID 77413-5 NEGATIVE N/A Normal: Negati ve INFLUENZA A DNA 57059-6 NEGATIVE N/A Normal: N egative INFLUENZA B DNA 69312-3 NEGATIVE N/A Normal: N egative RSV DNA 98852-0 NEGATIVE N/A Normal: Negati ve URINALYSIS WITH REFLEX CULT IF POSITIVE* - Collect Date/Time: 01/31/2023 21:35 Test Name Code Test Result Test Units Test Ref Rang e COLLECTION MODE: 88928-1 CLEAN CATCH N/A Color 5778-6 YELLOW N/A yellow Appearance 5767-9 CLEAR N/A clear Glucose urine 16222-7 NEGATIVE N/A negative mg /dl Bilirubin 5770-3 SMALL N/A negative Ketones 2514-8 NEGATIVE N/A negative mg/dl Spec gravity 5811-5 1.015 N/A 1.003 - 1.03 0 pH urine 2756-5 5.5 N/A 5.0 - 7.0 Protein 96213-1 100 N/A negative mg/dl Urobilinogen 69096-0 2.0 N/A <or= 1 EU/dl Nitrite. 5802-4 NEGATIVE N/A negative Blood 5794-3 MODERATE N/A negative Leukocytes. NEGATIVE N/A negative MICROSCOPIC INDICATED N/A WBCs. 49806-6 none N/A 0-5 / hpf RBCs 16212-1 0-5 N/A 0-5 / hpf Epith cells 85951-8 0-5 N/A 0-5 / hpf Cell types squamous N/A Crystals none N/A none Bacteria none N/A none Mucus 8247-9 present N/A none Casts 60476-9 none N/A none /lpf Active Medications Unknown [...] Code Start Date End Date Former smoker [id number] 1956 07/20/1970 Patient Decision Aids Unknown or Not Available. Discharge Instructions You were admitted to [facility] on 01/31/2023 20:03 with a principal diagnosis of Calculus of bile duct without cholangitis or cholecystitis without obstruction You had the following tests done:URINALYSIS WITH REFLEX CULT IF POSITIVE*[facility] COVID FLU RSV GENEXPERTBNP (PRO-B NATRIURETIC PEPTIDE)C REACTIVE PROTEIN HIGH SENSITIVITY*CBC W/ DIFFERENTIAL*COMPREHENSIVE METABOLIC PANEL (CMP)LACTIC ACIDLIPASE* NEWMAGNESIUM SERUM*TROPONIN HIGH SENSITIVITY* You were discharged from [facility] on 02/01/2023 00:46 Should you [...]
--- OUTSIDE RECORDS SUMMARY | 2023-03-11 19:29 | XMS_ITS | CCD ---
Author Name Unknown Address [address] [place] [address] [id number] Organization Unknown Address [address] [place] [address] [phone] Care Team Providers Care Mail Technician Name Role Phone ALIYAH DUMONT Attending Physician [phone] Vital Signs Unknown or Not Available. Allergies Allergy Code Allergy Type Reaction Status LISINOPRIL 35732 Drug allergy Anaphylaxis Active ZITHROMAX 673189 Drug allergy UNKNOWN; Vomiting Activ e Procedures Unknown or Not Available. History of Immunizations Unknown or Not Available. Problems Problem Code Start Date Resolved Date Status Acute diastolic (congestive) heart failure 435165947 Active Diabetes type 2 with nephropathy 600367279 Active Chronic kidney disease stage IV 197073279 Active Anasarca 958061637 Active BPH 284710581 07/13/2021 Resolved GERD 968638618 07/13/2021 Resolved AFIB 92991749 07/13/2021 Resolved Diabetic neuropathy 830221350 07/13/2021 Resol rufina Gout 93195072 07/13/2021 Resolved Hypertension 60351110 07/13/2021 Resolved Results EMI COVID BENITOX* - Guzman ect Date/Time: 04/08/2021 09:46 Test Name Code Test Result Test Units Test Ref Rang e Tier- 54124-3 PRE-OP N/A SARS COV2 RNA: 20613-2 NEGATIVE N/A REFERENCE RANGE: NEGAT Active Medications Medication Code Dose Units Frequency Route Modificatio n Start Date/Time Robaxin 500MG Oral Tablet 60479837334 1 TABLET THREE TIMES A DAY ORAL 02/12/2023 16:48 Prescription Detail TAKE 1 TABLET ORAL THREE TIMES A DAY Xarelto 15MG Oral Tablet 8185955 15 MILLIGRAMS EVERY EVENING ORAL 07/16/2021 11:09 Prescription Detail TAKE 15 MILLIGRAMS ORAL EVERY EVENING Medications Administered During Visit Unknown or Not Available. Encounters Encounter Diagnosis Diagnosis Code Start Date Pre-surgery testing [id number] 04/08/2021 Social History Smoking Status Code Start Date End Date Former smoker [id number] 1956 07/20/1970 Patient Decision Aids Unknown or Not Available. Discharge Instructions You were admitted to [facility] on 04/08/2021 05:37 with a principal diagnosis of Encounter for preprocedural laboratory examination You had the following tests done:[facility] COVID RHEONIX* You were discharged from [facility] on 04/08/2021 05:37 Should you have [...]
--- OUTSIDE RECORDS SUMMARY | 2023-03-11 19:29 | XMS_ITS | CCD ---
Author Name Unknown Address [address] [place] [address] [id number] Organization Unknown Address [address] [place] [address] [phone] Care Team Providers Care Baccarat Manager Name Role Phone JC SOTO Attending Physician [phone] JC SOTO Rounding (Secondary) Physician [phone] Vital Signs Unknown or Not Available. Allergies Allergy Code Allergy Type Reaction Status LISINOPRIL 52395 Drug allergy Anaphylaxis Active ZITHROMAX 419416 Drug allergy UNKNOWN; Vomiting Activ e Procedures Unknown or Not Available. History of Immunizations Unknown or Not Available. Problems Problem Code Start Date Resolved Date Status Acute diastolic (congestive) heart failure 788498191 Active Diabetes type 2 with nephropathy 868562773 Active Chronic kidney disease stage IV 473631149 Active Anasarca 337570039 Active BPH 281031015 07/13/2021 Resolved GERD 683777539 07/13/2021 Resolved AFIB 57125980 07/13/2021 Resolved Diabetic neuropathy 982776126 07/13/2021 Resol rufina Gout 58059010 07/13/2021 Resolved Hypertension 79150642 07/13/2021 Resolved Results Unknown or Not Available. Active Medications Medication Code Dose Units Frequency Route Modificatio n Start Date/Time Robaxin 500MG Oral Tablet 35717437988 1 TABLET THREE TIMES A DAY ORAL 02/12/2023 16:48 Prescription Detail TAKE 1 TABLET ORAL THREE TIMES A DAY Xarelto 15MG Oral Tablet 2110674 15 MILLIGRAMS EVERY EVENING ORAL 07/16/2021 11:09 Prescription Detail TAKE 15 MILLIGRAMS ORAL EVERY EVENING Medications Administered During Visit Unknown or Not Available. Encounters Encounter Diagnosis Diagnosis Code Start Date Idiopathic osteoarthritis [id number] 2021 Social History Smoking Status Code Start Date End Date Former smoker [id number] [birth year] Patient Decision Aids Unknown or Not Available. Discharge Instructions You were admitted to on 04/09/2021 11:16 with a principal diagnosis of Unilateral primary osteoarthritis, left knee You were discharged from on 04/09/2021 00:00 Should you have any [...]
--- OUTSIDE RECORDS SUMMARY | 2023-03-11 19:30 | XMS_ITS | CCD ---
Author Name Unknown Address [address] [place] [address] [id number] Organization Unknown Address [address] [place] [address] [phone] Care Team Providers Care Sew Out Operator Name Role Phone GHASSAN ANSARI Attending Physician [phone] Vital Signs Unknown or Not Available. Allergies Allergy Code Allergy Type Reaction Status LISINOPRIL 20177 Drug allergy Anaphylaxis Active ZITHROMAX 659741 Drug allergy UNKNOWN; Vomiting Activ e Procedures Unknown or Not Available. History of Immunizations Unknown or Not Available. Problems Problem Code Start Date Resolved Date Status Acute diastolic (congestive) heart failure 834922688 Active Diabetes type 2 with nephropathy 872285000 Active Chronic kidney disease stage IV 646514859 Active Anasarca 883171101 Active Results Unknown or Not Available. Active Medications Medication Code Dose Units Frequency Route Modificatio n Start Date/Time Robaxin 500MG Oral Tablet 99793541721 1 TABLET THREE TIMES A DAY ORAL 02/12/2023 16:48 Prescription Detail TAKE 1 TABLET ORAL THREE TIMES A DAY Xarelto 15MG Oral Tablet 0036880 15 MILLIGRAMS EVERY EVENING ORAL 07/16/2021 11:09 Prescription Detail TAKE 15 MILLIGRAMS ORAL EVERY EVENING Medications Administered During Visit Unknown or Not Available. Encounters Encounter Diagnosis Diagnosis Code Start Date Chronic kidney disease, stage 3 unspecified N183 0 02/17/2023 Social History Smoking Status Code Start Date End Date Former smoker [id number] 1956 07/20/1970 Patient Decision Aids Unknown or Not Available. Discharge Instructions You were admitted to [facility] on 02/17/2023 12:48 with a principal diagnosis of Chronic kidney disease, stage 3 unspecified You were discharged from [facility] on 02/17/2023 12:48 Should you have [...]
--- OUTSIDE RECORDS SUMMARY | 2023-03-11 19:30 | XMS_ITS | CCD ---
Author Name Unknown Address [address] [place] [address] [id number] Organization Unknown Address [address] [place] [address] [phone] Care Team Providers Care Employee Relations Representative Name Role Phone EDWIN EBEBE Attending Physician [phone] JB CHRISTIANSON Er Physician [phone] MAGDIEL Uribe Registered Nurse [phone] Vital Signs Vital Sign Value Unit Date/Time [...] Allergy Code Allergy Type Reaction Status LISINOPRIL 08298 Drug allergy Anaphylaxis Active ZITHROMAX 19630818 Drug allergy UNKNOWN; Vomiting Activ e Procedures Unknown or Not Available. History of Immunizations Unknown or Not Available. Problems Problem Code Start Date Resolved Date Status Acute diastolic (congestive) heart failure 738233263 Active Diabetes type 2 with nephropathy 117199669 Active Chronic kidney disease stage IV 133069388 Active Anasarca 742037251 Active Results COMPREHENSIVE METABOLIC PANE L (CMP) [...] 2028-9 27 mmol/L L=22 H=34 ANION GAP 19311-4 7.1 mmol/L CALCIUM SERUM 39367-2 9.5 mg/dL L=8.2 H=10. 2 BILIRUBIN TOTAL 1975-2 2.0 mg/dL L=0.0 H=1 .3 ALK. PHOS. 6768-6 313 U/L L=46 H=116 SGOT (AST) 1920-8 60 U/L L=15 H=37 SGPT (ALT) 1742-6 45 U/L L=12 H=78 TOTAL PROTEIN 2885-2 8.4 gm/dL L=6.0 H=8.0 ALBUMIN 1751-7 3.0 gm/dL L=3.4 H=5.0 AGE 82 years eGFR (non-Afr.Amer.) 32557-6 27 mL/min eGFR (Afr-Sao Tomean) 90740-1 33 mL/min LACTIC ACID - Collect Date/T zaheer: 02/12/2023 12:56 Test Name Code Test Result Test Units Test Ref Rang e LACTIC ACID 86331-6 1.7 mmol/L L=0.7 H=2.1 LIPASE* NEW - [...] % 11.7 % L=10.0 H=50.0 MONO % 32880-7 6.9 % L=2.0 H=12.0 EOS % 0.6 % L=0.0 H=8.0 BASO % 0.3 % L=0.0 H=3.0 IG % 2514-8 0.7 % L=0.0 H=1.1 NRBC % 02712-9 0.0 % L=0.0 H=0.0 NEUT abs count 751-8 7.1 th/cmm L=1.6 H=8. 4 LYMPH abs count 731-0 1.0 th/cmm L=1.5 H=4 .0 MONO abs count 742-7 0.6 th/cmm L=0.2 H=1. 0 EOS abs count 711-2 0.1 th/cmm L=0.0 H=0.5 BASO abs count 704-7 0.0 th/cmm L=0.0 H=0. 2 IG abs count 27257-8 0.1 th/cmm L=0.0 H=0.1 NRBC abs count 07833-8 0.0 mil/cmm L=0.0 H=0. 0 RBC 789-8 [...] PROTIME 5902-2 11.1 seconds L=9.3 H=11.4 INR 66774-4 1.07 L=2.00 H=3.00 PTT PARTIAL THROMBOPLASTIN T ZAHEER* - Collect Date/Time: 02/12/2023 12:56 Test Name Code Test Result Test Units Test Ref Rang e PTT 17857-0 34.3 seconds L=24.5 H=32.8 EMI COVID GENEXPERT* - Co llect Date/Time: 02/12/2023 12:52 Test Name Code Test Result Test Units Test Ref Rang e COVID 12801-0 NEGATIVE N/A Normal: Negati ve SOURCE= 26489-7 Nasopharyngeal N/A Tier- 31046-3 SYMPTOMS N/A URINALYSIS WITH REFLEX CULT IF POSITIVE* - Collect Date/Time: 02/12/2023 14:05 Test Name Code Test Result Test Units Test Ref Rang e COLLECTION MODE: 54916-6 CLEAN CATCH N/A Color 5778-6 YELLOW N/A yellow Appearance 5767-9 CLEAR N/A clear Glucose urine 72925-0 500 N/A negative mg /dl Bilirubin 5770-3 NEGATIVE N/A negative Ketones 2514-8 NEGATIVE N/A negative mg/dl Spec gravity 5811-5 1.010 N/A 1.003 - 1.03 0 pH urine 2756-5 6.0 N/A 5.0 - 7.0 Protein 34663-8 30 N/A negative mg/dl Urobilinogen 25724-6 0.2 N/A <or= 1 EU/dl Nitrite. 5802-4 NEGATIVE N/A negative Blood 5794-3 TRACE-IN N/A negative Leukocytes. NEGATIVE N/A negative MICROSCOPIC INDICATED N/A WBCs. 66171-0 0-5 N/A 0-5 / hpf RBCs 44912-6 0-5 N/A 0-5 / hpf Epith cells 44796-2 0-5 N/A 0-5 / hpf Cell types squamous N/A Crystals none N/A none Bacteria none N/A none Mucus 8247-9 none N/A none Casts 00451-7 none N/A none /lpf Active Medications Unknown or Not Available. Medications Administered During Visit Medication Dose Units Frequency Route Date/Time of Last Dose SODIUM CHLORIDE 0.9% 500ML 500 ML X1 IV 02/12/2023 13:29 MORPHINE INJ SYRINGE: 2MG/ML 2 MG X1 I INTELLIGENCE MANAGER 02/12/2023 13:29 METHOCARBAMOL TAB: 500MG 500 MG X1 PO 02/12/2023 17:06 Encounters Encounter Diagnosis Diagnosis Code Start Date Strain of muscle, fascia and tendon at neck level, initial encounter [id number] 02/12/2023 Social History Smoking Status Code Start Date End Date Former smoker [id number] 1956 07/20/1970 Patient Decision Aids Unknown or Not Available. Discharge Instructions You were admitted to [facility] on 02/12/2023 12:19 with a principal diagnosis of Strain of muscle, fascia and tendon at neck level, initial encounter You had the following tests done:URINALYSIS WITH REFLEX CULT IF POSITIVE*CBC W/ DIFFERENTIAL*COMPREHENSIVE METABOLIC PANEL (CMP)LACTIC ACIDLIPASE* NEWPT PROTHROMBIN TIME*PTT PARTIAL THROMBOPLASTIN TIME*[facility] COVID GENEXPERT* You were discharged from [facility] on 02/12/2023 17:07 Should you have any [...]
--- OUTSIDE RECORDS SUMMARY | 2023-03-11 19:31 | XMS_ITS | CCD ---
Author Name Unknown Address [address] [place] [address] [id number] Organization Unknown Address [address] [place] [address] [phone] Care Team Providers Care Data Processing Supervisor Name Role Phone BLADIMIR VANN MD Attending Physician [phone] Vital Signs Unknown or Not Available. Allergies Allergy Code Allergy Type Reaction Status LISINOPRIL 36276 Drug allergy Anaphylaxis Active ZITHROMAX 854101 Drug allergy UNKNOWN; Vomiting Activ e Procedures Unknown or Not Available. History of Immunizations Unknown or Not Available. Problems Problem Code Start Date Resolved Date Status Acute diastolic (congestive) heart failure 594150913 Active Diabetes type 2 with nephropathy 297812379 Active Chronic kidney disease stage IV 782846250 Active Anasarca 518081307 Active BPH 752739847 07/13/2021 Resolved GERD 921967349 07/13/2021 Resolved AFIB 44707349 07/13/2021 Resolved Diabetic neuropathy 243890560 07/13/2021 Resol rufina Gout 39606908 07/13/2021 Resolved Hypertension 07792097 07/13/2021 Resolved Results EMI KINGA BENITOX - [facility] ct Date/Time: 11/03/2020 11:00 Test Name Code Test Result Test Units Test Ref Rang e SOURCE= Anterior nasal N/A Tier- SYMPTOMS N/A SARS COV2 RNA: 11427-2 POSITIVE N/A REFERENCE RANGE: NEGAT Active Medications Medication Code Dose Units Frequency Route Modificatio n Start Date/Time Robaxin 500MG Oral Tablet 88770141374 1 TABLET THREE TIMES A DAY ORAL 02/12/2023 16:48 Prescription Detail TAKE 1 TABLET ORAL THREE TIMES A DAY Xarelto 15MG Oral Tablet 5210595 15 MILLIGRAMS EVERY EVENING ORAL 07/16/2021 11:09 Prescription Detail TAKE 15 MILLIGRAMS ORAL EVERY EVENING Medications Administered During Visit Unknown or Not Available. Encounters Encounter Diagnosis Diagnosis Code Start Date COVID-19 U071 11/03/2020 Social History Smoking Status Code Start Date End Date Former smoker [id number] 1956 07/20/1970 Patient Decision Aids Unknown or Not Available. Discharge Instructions You were admitted to [facility] on 11/03/2020 14:03 with a principal diagnosis of COVID-19 You had the following tests done:[facility] KINGA OLIVERX You were discharged from [facility] on 11/03/2020 14:03 Should you have any [...]
[2023-03-11 21:22] LABS: Anion Gap 9.6 mmol/L (3-11); BUN 71 mg/dL (7-18); CO2 26.4 mmol/L (21.0-32.0); CREATININE 2.9 mg/dL (0.70-1.30); Calcium 9.9 mg/dL (8.5-10.1); Chloride 100 mmol/L (98-107); Estimated GFR 20.81 (mL/min/1.73m2); Glucose 250 mg/dL (74-106); Potassium 4.7 mmol/L (3.5-5.1); Sodium 136 mmol/L (136-145)
== END 2023-03-11 19:26 | disposition home or self-care (01) ==
LOC: NCHCN 19:25
PROVIDERS: PCP Internal Medicine; Visit Provider Internal Medicine
DX: R60.0 Localized edema (principal)
CPT/HCPCS: 80048

== ENCOUNTER 2023-03-25 13:28 | Outpatient (REF) | payer MEDICARE, BC, SELFPAY ==
[2023-03-25 14:33] LABS: Anion Gap 9.5 mmol/L (3-11); BUN 57 mg/dL (7-18); CO2 28.5 mmol/L (21.0-32.0); CREATININE 2.6 mg/dL (0.70-1.30); Calcium 10.1 mg/dL (8.5-10.1); Chloride 101 mmol/L (98-107); Estimated GFR 23.73 (mL/min/1.73m2); Glucose 107 mg/dL (74-106); Potassium 4.7 mmol/L (3.5-5.1); Sodium 139 mmol/L (136-145)
== END 2023-03-25 13:29 | disposition home or self-care (01) ==
LOC: NCHCN 13:28
PROVIDERS: PCP Internal Medicine; Visit Provider Internal Medicine
DX: N18.9 Chronic kidney disease, unspecified (principal)
CPT/HCPCS: 80048

== ENCOUNTER 2023-05-06 12:41 | Outpatient (REF) | payer MEDICARE, BC, SELFPAY ==
[2023-05-06 21:37] LABS: Hemoglobin A1C 7.7 % (<5.7)
[2023-05-06 21:40] LABS: ALT 21 U/L (16-63); AST 30 U/L (15-37); Albumin 3.2 g/dL (3.4-5.0); Alkaline Phosphatase 173 U/L (46-116); Anion Gap 9.5 mmol/L (3-11); BUN 62 mg/dL (7-18); Bilirubin, Total 0.4 mg/dL (0.2-1.0); CO2 27.5 mmol/L (21.0-32.0); CREATININE 2.6 mg/dL (0.70-1.30); Calcium 9.4 mg/dL (8.5-10.1); Chloride 107 mmol/L (98-107); Estimated GFR 23.73 (mL/min/1.73m2); Glucose 222 mg/dL (74-106); Potassium 4.9 mmol/L (3.5-5.1); Sodium 144 mmol/L (136-145); Total Protein 7.8 g/dL (6.4-8.2)
== END 2023-05-06 12:42 | disposition home or self-care (01) ==
LOC: NCHCN 12:41
PROVIDERS: PCP Internal Medicine; Visit Provider Internal Medicine
DX: E11.21 Type 2 diabetes mellitus with diabetic nephropathy (principal); N18.9 Chronic kidney disease, unspecified
CPT/HCPCS: 80053; 83036

== ENCOUNTER 2023-05-10 20:00 | Outpatient (REF) | payer MEDICARE, BC, SELFPAY ==
[2023-05-10 15:02] LABS: Anion Gap 10.5 mmol/L (3-11); BUN 64 mg/dL (7-18); CO2 24.5 mmol/L (21.0-32.0); Calcium 9.3 mg/dL (8.5-10.1); Chloride 103 mmol/L (98-107); Estimated GFR 19.98 (mL/min/1.73m2); Glucose 106 mg/dL (74-106); Potassium 5.6 mmol/L (3.5-5.1); Sodium 138 mmol/L (136-145)
== END 2023-05-10 20:01 | disposition home or self-care (01) ==
LOC: NCHCN 20:00
PROVIDERS: PCP Internal Medicine; Referring Provider Internal Medicine; Visit Provider Internal Medicine
DX: N18.9 Chronic kidney disease, unspecified (principal)
CPT/HCPCS: 80048

== ENCOUNTER 2023-05-17 12:33 | Outpatient (REF) | payer MEDICARE, BC, SELFPAY ==
[2023-05-17 14:47] LABS: HCT 28.7 % (40.0-50.0); HGB 8.9 g/dL (13.5-17.5); MCH 34.9 pg (27.0-33.0); MPV 10.1 fL (8.0-11.0); Platelet Count 178 10^3/uL (130-400); RBC 2.55 10^6/uL (4.36-5.78); RDW 14.6 % (11.8-14.1); RDW-SD 59.7 fL; WBC 5.42 10^3/uL (4.4-10.8)
[2023-05-17 14:59] LABS: MCV 113 fL (80-95)
[2023-05-17 15:51] LABS: Anion Gap 13.9 mmol/L (3-11); BUN 79 mg/dL (7-18); CO2 26.1 mmol/L (21.0-32.0); CREATININE 3.5 mg/dL (0.70-1.30); Calcium 9.2 mg/dL (8.5-10.1); Chloride 103 mmol/L (98-107); Estimated GFR 16.61 (mL/min/1.73m2); Glucose 169 mg/dL (74-106); Potassium 4.8 mmol/L (3.5-5.1); Sodium 143 mmol/L (136-145); Vitamin B12 307 pg/mL (193-986)
== END 2023-05-17 12:34 | disposition home or self-care (01) ==
LOC: NCHCN 12:33
PROVIDERS: PCP Internal Medicine; Referring Provider Internal Medicine; Visit Provider Internal Medicine
DX: D64.9 Anemia, unspecified (principal); R60.0 Localized edema
CPT/HCPCS: 80048; 85027; 82607